=== PATIENT | female | born 1950 | race Caucasian/White ===

== ENCOUNTER → 2017-03-13 | Outpatient (REF) | payer MEDICARE ==
[~2017-03-13] MED LIST: ASPI32ECTA PO; ATOR1TAB18 PO; CENTTAB47 PO; DULE200A IN; DULO1CAP3 PO; ENAL5TAB PO; FURO40TA2 PO; METO50TA2 PO; NITR3TA SL; PROA1AER IN
[2017-03-13 18:03] LABS: PHOSPHORUS LEVEL 2.8 MG/DL (2.5-4.9)
== END ==
LOC: M LAB REF 16:25
PROVIDERS: ATTEND Nurse Practitioner Adult Health
DX: E21.3 Hyperparathyroidism, unspecified (principal)

== ENCOUNTER → 2017-07-24 | Outpatient (REF) | payer MEDICARE ==
[~2017-07-24] MED LIST changes: +ASPI325T24 PO; -ASPI32ECTA PO; -ATOR1TAB18 PO; +ATOR80TA59 PO; -METO50TA2 PO; +METO50TA7 PO; -PROA1AER IN; +PROAAER10 IN
[2017-07-30 10:44] LABS: DOPAMINE PLASMA <30 pg/mL (0-48); EPINEPHRINE PLASMA <15 pg/mL (0-62); NOREPINEPHRINE PLASMA 840 pg/mL (0-874)
== END ==
LOC: M LAB REF 11:14
PROVIDERS: ATTEND Nurse Practitioner Adult Health
DX: I10 Essential (primary) hypertension (principal); E21.3 Hyperparathyroidism, unspecified; E11.40 Type 2 diabetes mellitus with diabetic neuropathy, unspecified

== ENCOUNTER → 2018-01-28 | Outpatient (REF) | payer MEDICARE ==
[2018-01-28 17:58] LABS: FERRITIN 31 NG/ML (8-252); IRON (FE) 53 UG/DL (50-170); PERCENT SATURATION 15.1 % (13.2-45.0); TOTAL IRON BINDING CAPACITY 351 UG/DL (250-450)
[2018-01-28 19:31] LABS: BACTERIA, URINE LARGE AMOUNT; RBC, URINE 0-1 /hpf (0-3); SQUAMOUS EPITHELIAL CELL URINE SMALL AMOUNT /hpf (SMALL AMT); WBC, URINE 20-30 /hpf (0-3)
[2018-01-28 19:32] LABS: BLADDER EPITHELIAL CELLS, UR SMALL AMOUNT /hpf; HYALINE CAST, URINE NONE SEEN /lpf (0-1); MICROSCOPIC EXAM PERFORMED
== END ==
LOC: M LAB REF 16:59
DX: N18.3 Chronic kidney disease, stage 3 (moderate) (principal); D63.1 Anemia in chronic kidney disease; R31.29 Other microscopic hematuria; R80.9 Proteinuria, unspecified
CPT/HCPCS: 83550

== ENCOUNTER → 2018-04-13 | Outpatient (REF) | payer MEDICARE ==
[2018-04-13 18:30] LABS: PHOSPHORUS LEVEL 3.6 MG/DL (2.5-4.9)
[2018-04-13 18:40] LABS: PTH INTACT 78.9 PG/ML (18.5-88.0)
== END ==
LOC: M LAB REF 17:09
DX: E21.3 Hyperparathyroidism, unspecified (principal)
CPT/HCPCS: 84100

== ENCOUNTER → 2018-08-04 | Outpatient (REF) | payer MEDICARE ==
[2018-08-05 15:29] LABS: BACTERIA, URINE AUTO 2+ (NEGATIVE); RBC, URINE AUTO 1 /HPF (0-3); SQUAMOUS EPITHELIAL CELL UR AU 1 /HPF (0-6); WBC, URINE AUTO 19 /HPF (0-3)
[2018-08-05 15:49] LABS: TOTAL PROTEIN 7.1 GM/DL (6.4-8.2)
[2018-08-05 15:53] LABS: TOTAL PROTEIN,RANDOM URINE 155.1 MG/DL (0.0-12.0); URINE TOTAL PROTEIN 155.1 MG/DL (0-12)
[2018-08-06 14:14] LABS: ANTI DOUBLE STRAND-DNA AB 3 IU/mL (0-9); ANTINUCLEAR ANTIBODIES DIRECT Negative (Negative)
[2018-08-09 14:40] LABS: UPEP INTERPRETATION NO M-SPIKE NOTED; URINE VOLUME RANDOM ML
[2018-08-09 15:18] LABS: ALBUMIN 3.73 GM/DL (3.29-5.55); ALBUMIN % 52.6 % (55.8-66.1); ALPHA-1-GLOBULIN % 6.1 % (2.9-4.9); ALPHA-1-GLOBULINS 0.43 GM/DL (0.17-0.41); ALPHA-2-GLOBULINS 1.02 GM/DL (0.42-0.99); ALPHA-2-GLOBULINS % 14.4 % (7.1-11.8); BETA-1-GLOBULINS 0.51 GM/DL (0.28-0.60); BETA-1-GLOBULINS % 7.2 % (4.7-7.2); BETA-2-GLOBULINS 0.42 GM/DL (0.19-0.55)
[2018-08-09 15:19] LABS: BETA-2-GLOBULINS % 5.9 % (3.2-6.5); GAMMA GLOBULIN % 13.8 % (11.1-18.8); GAMMA GLOBULINS 0.98 GM/DL (0.65-1.58)
== END ==
LOC: M LAB REF 13:24
DX: N18.3 Chronic kidney disease, stage 3 (moderate) (principal); R80.9 Proteinuria, unspecified
CPT/HCPCS: 84165

== ENCOUNTER → 2018-08-10 | Outpatient (CLI) | payer MEDICARE | LOC: M RAD 13:46 | DX: N18.3 Chronic kidney disease, stage 3 (moderate) (principal); E11.22 Type 2 diabetes mellitus with diabetic chronic kidney disease; I12.9 Hypertensive chronic kidney disease with stage 1 through stage 4 chronic kidney disease, or unspecified chronic kidney disease; N28.1 Cyst of kidney, acquired | CPT/HCPCS: 76775 ==

== ENCOUNTER → 2018-10-26 | Outpatient (CLI) | payer MEDICARE | LOC: M RAD 13:07 | DX: Z12.2 Encounter for screening for malignant neoplasm of respiratory organs (principal); J44.9 Chronic obstructive pulmonary disease, unspecified; Z87.891 Personal history of nicotine dependence | CPT/HCPCS: G0297 ==

== ENCOUNTER → 2018-11-10 | Outpatient (CLI) | payer MEDICARE ==
[~2018-11-10] MED LIST changes: -ASPI325T24 PO; +ASPI325T25 PO; +ISOVUE-370 76% 100ML VIAL (Q9967) As Ordered ONE; +NITR0.3S SL; -NITR3TA SL
--- NOTE | 2018-11-10 17:40 | REP ---
CT abdomen without and with IV contrast: Without oral contrast. History: Cyst of the kidney. Comparison CT study May 15, 2015. CT contrast dose: 100 ml of intravenous Isovue 370 is administered. Multiphase postcontrast imaging was acquired. CT findings: There are numerous small bilateral renal cortical cysts. There is a hyperdense small cortical cyst at the lower pole of the right kidney. There is a slightly hyperdense cyst in the upper pole of the right kidney. This measures 2.6 cm in greatest diameter. This is slightly larger than it was in 2015, 1.7 cm. No new mass is seen. There is no evidence of contrast enhancement in any of these cysts. There are scattered vascular calcifications bilaterally. There is probably intrarenal nephrolithiasis bilaterally. No hydronephrosis is seen. There is stable low density enlargement of the left adrenal gland. The study is otherwise unremarkable. No pancreatic or gallbladder abnormality is seen. Spleen and liver are unremarkable. Impression: Stable multicystic kidney changes. Intrarenal nephrolithiasis suspected without hydronephrosis. Vascular calcification as before. Electronically Signed by Rogerio Bowie MD 11/10/2018 08:46 P
== END ==
LOC: M RAD 10:19
PROVIDERS: ATTEND Internal Medicine Nephrology
DX: N28.1 Cyst of kidney, acquired (principal)
CPT/HCPCS: 74170; Q9967

== ENCOUNTER → 2019-04-08 | Outpatient (REF) | payer MEDICARE ==
[~2019-04-08] MED LIST changes: +ASPI-255 PO; -ASPI325T25 PO; -ISOVUE-370 76% 100ML VIAL (Q9967) As Ordered ONE
== END ==
LOC: M LAB REF 13:18
PROVIDERS: ATTEND Internal Medicine Nephrology
DX: N18.3 Chronic kidney disease, stage 3 (moderate) (principal); R80.9 Proteinuria, unspecified

== ENCOUNTER → 2019-11-22 | Outpatient (REF) | payer MEDICARE ==
[~2019-11-22] MED LIST changes: -DULO1CAP3 PO; +DULO1CAP6 PO
[2019-11-22 13:41] LABS: BACTERIA, URINE AUTO 2+ (NEGATIVE); RBC, URINE AUTO 1 /HPF (0-3); SQUAMOUS EPITHELIAL CELL UR AU 1 /HPF (0-6); WBC, URINE AUTO 18 /HPF (0-3)
[2019-11-22 13:46] LABS: PERCENT SATURATION 20.3 % (13.2-45.0)
[2019-11-22 14:19] LABS: TOTAL PROTEIN,RANDOM URINE 344.2 MG/DL (0.0-12.0)
== END ==
LOC: M LAB REF 13:16
PROVIDERS: ATTEND Internal Medicine Nephrology
DX: R80.9 Proteinuria, unspecified (principal); N18.3 Chronic kidney disease, stage 3 (moderate); D63.1 Anemia in chronic kidney disease

== ENCOUNTER 2019-12-13 11:25 | Day surgery (SDC) | payer MEDICARE ==
[~2019-12-13] VITALS: Ht 162.6 cm; Wt 55.8 kg
[~2019-12-13 11:25] MED LIST changes: +AMLO5TAB6 PO; +ASPI81TA85 PO; -DULE200A IN; +DULE200A INH; +ENAL10TA2 PO; +LIDOCAINE 2% INJ 100 MG/5 ML SDV (FOR ANES.) As Ordered ONE; +MAGN400C2 PO; +METF500T13 PO; +MULTCAP PO; +NS 1,000 ML IV ONE; +PROAAER10 INH; +VITA1CHW7 PO; +propofoL 200 MG/20 ML VIAL As Ordered ONE
[2019-12-13] MEDS ORDERED: propofoL 200 MG/20 ML VIAL As Ordered ONE (13:03)
--- NOTE | 2019-12-13 13:38 | ROOR ---
Patient Name: Marie Johnson Procedure Date: 12/13/2019 1:18 PM Date of : 1950 Age: 69 Room: [facility] Gender: Female Note Status: Finalized Procedure: Colonoscopy to Descending Colon(POOR PREP) Indications: High risk colon cancer surveillance: Personal history of colonic polyps Providers: Saulo Mina MD Referring MD: Phuong Gordillo NP Requesting Provider: Medicines: Monitored Anesthesia Care Complications: No immediate complications. Procedure: Pre-Anesthesia Assessment: - The heart rate, respiratory rate, oxygen saturations, blood pressure, adequacy of pulmonary ventilation, and response to care were monitored throughout the procedure. The Colonoscope was introduced through the anus with the intention of advancing to the cecum. The scope was advanced to the descending colon before the procedure was aborted. Medications were given. The colonoscopy was performed without difficulty. The patient tolerated the procedure well. The quality of the bowel preparation was inadequate. Findings: The perianal and digital rectal examinations were normal. Non-bleeding internal hemorrhoids were found during retroflexion. The hemorrhoids were small and Grade I (internal hemorrhoids that do not prolapse). Multiple small and large-mouthed diverticula were found in the recto-sigmoid colon, sigmoid colon and descending colon. The exam was otherwise without abnormality. Impression: - Preparation of the colon was inadequate. - Non-bleeding internal hemorrhoids. - Diverticulosis in the recto-sigmoid colon, in the sigmoid colon and in the descending colon. - The examination was otherwise normal. - No specimens collected. - The exam was suboptimal due to patient preparation. - The procedure was aborted due to inadequate bowel prep. Recommendation: - Patient has a contact number available for emergencies. The signs and symptoms of potential delayed complications were discussed with the patient. Return to normal activities tomorrow. Written discharge instructions were provided to the patient. - Discharge patient to home. - Continue present medications. - Repeat colonoscopy in 1 year because the bowel preparation was suboptimal. - Return to referring physician. - The findings and recommendations were discussed with the patient's family. Saulo Mina MD Saulo Mina MD 12/13/2019 1:37:53 PM Electronically signed by Saulo Mina MD Number of Addenda: 0 Note Initiated On: 12/13/2019 1:18 PM Estimated Blood Loss: Estimated blood loss: none.
[2019-12-13 14:30] VITALS: BP 170/72
== END 2019-12-13 14:42 | disposition home or self-care (01) ==
LOC: M OPP 11:25
PROVIDERS: ATTEND Internal Medicine Gastroenterology
DX: Z86.010 Personal history of colon polyps (principal); K64.0 First degree hemorrhoids; K57.30 Diverticulosis of large intestine without perforation or abscess without bleeding; Z53.8 Procedure and treatment not carried out for other reasons

== ENCOUNTER → 2020-08-08 | Outpatient (CLI) | payer MEDICARE ==
[~2020-08-08] MED LIST changes: +AMLO1TAB24 PO; -AMLO5TAB6 PO; -ASPI81TA85 PO; +ASPI81TA86 PO; +D31000TA2 PO; +ENAL-36 PO; -ENAL10TA2 PO; +ENAL5TA PO; -ENAL5TAB PO; -LIDOCAINE 2% INJ 100 MG/5 ML SDV (FOR ANES.) As Ordered ONE; -NS 1,000 ML IV ONE; -propofoL 200 MG/20 ML VIAL As Ordered ONE
--- NOTE | 2020-08-21 14:51 | REP ---
CT CHEST WITHOUT CONTRAST: LOW-DOSE SCREENING EXAM HISTORY: Nicotine dependence. COMPARISON: CT study from 10/26/2018. CT FINDINGS: Emphysematous changes and hyperinflation are again noted as before. There is a new 6-mm noncalcified nodule in the right upper lobe displayed on Page 24 of 112 in Series 201 of todays examination. This merits follow-up. There is no change in the size or appearance of the previously noted left upper lobe nodule in the interval since the prior study. This measures 4 mm and is displayed on page 21. There are scattered granulomatous calcifications elsewhere in the left upper lobe and there is some left upper lobe linear fibrosis again seen unchanged. No other pulmonary nodule is seen. No mass lesion is observed. Vascular calcification is seen. IMPRESSION: New 6-mm noncalcified nodule right upper lobe. Lung-RADS Category 3 findings. Six month follow-up chest CT recommended. MTDD
== END ==
LOC: M RAD 12:35
PROVIDERS: ATTEND Nurse Practitioner Adult Health
DX: Z12.2 Encounter for screening for malignant neoplasm of respiratory organs (principal); F17.210 Nicotine dependence, cigarettes, uncomplicated; R91.1 Solitary pulmonary nodule

== ENCOUNTER → 2020-08-29 | Outpatient (CLI) | payer MEDICARE | LOC: M LABSMTC 12:08 | PROVIDERS: ATTEND Anesthesiology | DX: Z01.812 Encounter for preprocedural laboratory examination (principal); Z20.828 Contact with and (suspected) exposure to other viral communicable diseases | CPT/HCPCS: C9803; U0003 ==

== ENCOUNTER 2020-09-03 08:13 | Day surgery (SDC) | payer MEDICARE ==
[~2020-09-03] VITALS: Ht 162.6 cm; Wt 53.0 kg
[~2020-09-03 08:13] MED LIST changes: +LIDOCAINE 2% 100MG/5ML SDV (FOR ANES.) As Ordered ONE; +NS 1,000 ML IV ONE; +propofoL 200 MG/20 ML VIAL As Ordered ONE
--- NOTE | 2020-09-03 10:10 | ROOR ---
Patient Name: Marie Johnson Procedure Date: 09/03/2020 9:26 AM Date of : 1950 Age: 69 Room: [facility] Gender: Female Note Status: Finalized Procedure: Total Colonoscopy to Cecum + Cold Snare Polypectomy + Hemoclips Indications: High risk colon cancer surveillance: Personal history of colonic polyps Providers: Saulo Mina MD Referring MD: Phuong Gordillo NP Requesting Provider: Medicines: Monitored Anesthesia Care Complications: No immediate complications. Procedure: Pre-Anesthesia Assessment: - The heart rate, respiratory rate, oxygen saturations, blood pressure, adequacy of pulmonary ventilation, and response to care were monitored throughout the procedure. The Colonoscope was introduced through the anus and advanced to the cecum, identified by appendiceal orifice and ileocecal valve. The colonoscopy was performed without difficulty. The patient tolerated the procedure well. The quality of the bowel preparation was good. Findings: The perianal and digital rectal examinations were normal. Non-bleeding internal hemorrhoids were found during retroflexion. The hemorrhoids were small and Grade I (internal hemorrhoids that do not prolapse). Scattered small-mouthed diverticula were found in the recto-sigmoid colon, sigmoid colon and descending colon. Multiple sessile polyps were found in the entire colon. The polyps were large in size. These polyps were removed with a cold snare. Resection and retrieval were complete. To prevent bleeding after the polypectomy, two hemostatic clips were successfully placed. There was no bleeding at the end of the procedure. The exam was otherwise without abnormality on direct and retroflexion views. Impression: - Non-bleeding internal hemorrhoids. - Diverticulosis in the recto-sigmoid colon, in the sigmoid colon and in the descending colon. - Multiple large polyps in the entire colon, removed with a cold snare. Resected and retrieved. Clips were placed. - The examination was otherwise normal on direct and retroflexion views. - The exam was otherwise normal to the cecum. Recommendation: - Patient has a contact number available for emergencies. The signs and symptoms of potential delayed complications were discussed with the patient. Return to normal activities tomorrow. Written discharge instructions were provided to the patient. - High fiber diet. - Discharge patient to home. - Continue present medications. - Await pathology results. - Telephone GI clinic for pathology results in 1 week. - Repeat colonoscopy for surveillance based on pathology results. - Return to referring physician. - The findings and recommendations were discussed with the patient. Saulo Mina MD Saulo Mina MD 09/03/2020 10:09:53 AM Electronically signed by Saulo Mina MD Number of Addenda: 0 Note Initiated On: 09/03/2020 9:26 AM Estimated Blood Loss: Estimated blood loss: none.
[2020-09-03 10:30] VITALS: BP 158/68
== END 2020-09-03 11:00 | disposition home or self-care (01) ==
LOC: M OPP 08:13
PROVIDERS: ATTEND Internal Medicine Gastroenterology
DX: Z12.11 Encounter for screening for malignant neoplasm of colon (principal); Z86.010 Personal history of colon polyps; D12.6 Benign neoplasm of colon, unspecified; K64.0 First degree hemorrhoids; K57.30 Diverticulosis of large intestine without perforation or abscess without bleeding; I25.2 Old myocardial infarction; I10 Essential (primary) hypertension; E78.5 Hyperlipidemia, unspecified; E11.9 Type 2 diabetes mellitus without complications; R12 Heartburn; F32.9 Major depressive disorder, single episode, unspecified; J44.9 Chronic obstructive pulmonary disease, unspecified; Z87.891 Personal history of nicotine dependence; Z91.09 Other allergy status, other than to drugs and biological substances; Z95.5 Presence of coronary angioplasty implant and graft; Z79.82 Long term (current) use of aspirin; Z79.84 Long term (current) use of oral hypoglycemic drugs; Z79.899 Other long term (current) drug therapy

== ENCOUNTER → 2020-11-07 | Outpatient (CLI) | payer MEDICARE ==
[~2020-11-07] MED LIST changes: -LIDOCAINE 2% 100MG/5ML SDV (FOR ANES.) As Ordered ONE; -NS 1,000 ML IV ONE; -propofoL 200 MG/20 ML VIAL As Ordered ONE
--- NOTE | 2020-11-07 15:27 | REP ---
INDICATION: NONSPECIFIC ABNORMAL FINDINGS. COMPARISON: Low-dose lung screening chest CT dated 10/26/2018 and low-dose lung screening chest CT dated 08/08/2020. TECHNIQUE: Chest CT without IV contrast. FINDINGS: There is a nodule with irregular margins in the right upper lobe on image 25 measuring 7 mm today. This measured 6 mm on 08/08/2020 and was not present on 10/26/2018. There is a stable 4 mm lung nodule medially in the left upper lobe on image 23, unchanged from both prior studies. There is a stable small curvilinear density anteriorly in the left upper lobe on image 34, unchanged from both prior studies. I believe this density is calcified. There is a focal 9 mm ground-glass density posteriorly in the right lower lobe on image 62. This is unchanged from both prior studies. This is a category 2 lung lesion with the probability of malignancy less than 1%. No other lung nodules or masses are identified. There are no infiltrates or pleural effusions. There is no mediastinal or axillary lymph node enlargement. The study is insensitive for hilar lymph node enlargement in the absence of IV contrast. The thoracic aorta is unremarkable except for calcified atheroma. Cardiac size is normal. There are atheromatous calcifications in the coronary arteries. There is no pericardial effusion. Upper abdomen: There is a hypodense 2.4 cm left adrenal nodule with CT density of negative 3.9 Hounsfield units. This is compatible with a benign nodule such as a an adenoma or myelolipoma. The right adrenal is unremarkable. There are bilateral renal cortical cysts in bilateral renal calculi. IMPRESSION: There is a 7 mm right upper lobe nodule with irregular margins on image 25 that was not present on 10/26/2018 but has not significantly changed from 08/08/2020. There are several other stable nodules as described, all category 2 lung nodules with the probability of malignancy less than 1%. There is a right lower lobe stable ground-glass density also category 2 lesion was probability of malignancy less than 1%. There is a left adrenal nodule with benign characteristics. The right adrenal is unremarkable. <Electronically signed by Mj Casper > 11/07/20 [id number]
== END ==
LOC: M RAD 12:57
PROVIDERS: ATTEND Internal Medicine Pulmonary Disease
DX: R91.8 Other nonspecific abnormal finding of lung field (principal)

== ENCOUNTER → 2020-11-12 | Outpatient (REF) | payer MEDICARE ==
[2020-11-12 18:23] LABS: COMPLEMENT C3 119 MG/DL (90-180); COMPLEMENT C4 39 MG/DL (10-40); TOTAL PROTEIN 7.3 GM/DL (6.4-8.2)
[2020-11-13 10:43] LABS: ALBUMIN 4.01 GM/DL (3.29-5.55); ALBUMIN % 54.9 % (55.8-66.1); ALPHA-1-GLOBULIN % 5.3 % (2.9-4.9); ALPHA-1-GLOBULINS 0.39 GM/DL (0.17-0.41); ALPHA-2-GLOBULINS 0.96 GM/DL (0.42-0.99); ALPHA-2-GLOBULINS % 13.1 % (7.1-11.8); BETA-1-GLOBULINS 0.53 GM/DL (0.28-0.60); BETA-1-GLOBULINS % 7.2 % (4.7-7.2)
[2020-11-13 10:44] LABS: BETA-2-GLOBULINS 0.43 GM/DL (0.19-0.55); BETA-2-GLOBULINS % 5.9 % (3.2-6.5); GAMMA GLOBULIN % 13.6 % (11.1-18.8); GAMMA GLOBULINS 0.99 GM/DL (0.65-1.58)
[2020-11-15 15:09] LABS: ANCA-ATYPICAL <1:20 titer (Neg:<1:20); CYTOPLASMIC NEUTROP AB ANCA-C <1:20 titer (Neg:<1:20); PERINUCLEAR AB ANCA-P <1:20 titer (Neg:<1:20)
== END ==
LOC: M LAB REF 16:56
PROVIDERS: ATTEND Internal Medicine Nephrology
DX: R80.9 Proteinuria, unspecified (principal)

== ENCOUNTER → 2021-05-07 | Outpatient (CLI) | payer MEDICARE ==
--- NOTE | 2021-05-07 16:24 | REP ---
INDICATION: ABN FINDING OF LUNG COMPARISON: Multiple the latest 11/07/2020. TECHNIQUE: Standard helical technique without intravenous contrast FINDINGS: The mediastinum and pulmonary elizabeth are unchanged. There is no mass or adenopathy. There are no pleural or pericardial effusions. The imaged upper abdomen again shows bilateral nephrolithiasis. There is no significant change in appearance of the imaged osseous structures. Evaluation of the lung pace shows lung field hyperexpansion with emphysematous changes. The small area of asymmetry seen in the right upper lobe has gotten smaller and is consistent with vascular markings. There is a small 8 mm size somewhat irregular nodule in the extreme antral basal segment the right lower lobe. Previously, this area. B fibrotic and/or subsegmental atelectatic change. There are bibasilar curvilinear densities which appear stable. IMPRESSION: 1. Small asymmetric nodule in the right lower lobe as described above likely reflecting a small focus of subsegmental atelectasis or chronic fibrosis, however, since it does represent somewhat of a change compared to the latest prior examination I will categorize it is a 4A lesion and recommended 3 month follow-up. 2. Other lung field findings, as described above, which appears stable. <Electronically signed by Andreas Costello > 05/07/21 [id number]
== END ==
LOC: M RAD 14:57
PROVIDERS: ATTEND Internal Medicine Pulmonary Disease
DX: R91.8 Other nonspecific abnormal finding of lung field (principal)

== ENCOUNTER → 2021-08-12 | Outpatient (CLI) | payer MEDICARE ==
--- NOTE | 2021-08-12 16:41 | REP ---
INDICATION: ABNORMAL FINDING OF LUNG FIELD COMPARISON: Multiple the latest 05/07/2021 TECHNIQUE: Standard helical technique without the administration of intravenous contrast. FINDINGS: The mediastinum and pulmonary elizabeth are stable. There are no pleural or pericardial effusions. There is no change in the imaged upper abdomen or imaged osseous structures. Evaluation of the lung pace shows the small asymmetric nodule seen previously in the tamy basal segment of the right lower lobe to have gotten smaller and less dense. There is respiratory motion artifact in the lung bases obscuring the detail, however, no definite new abnormal nodules, masses, or opacities have developed. Stable emphysematous changes are again noted status quo. IMPRESSION: Improvement as described above. Follow-up as per the revised Fleischner society criteria. <Electronically signed by Andreas Costello > 08/12/21 [id number]
== END ==
LOC: M PLAIMG 13:30
PROVIDERS: ATTEND Internal Medicine Pulmonary Disease
DX: R91.8 Other nonspecific abnormal finding of lung field (principal)

== ENCOUNTER → 2021-08-16 | Outpatient (REF) | payer MEDICARE ==
[2021-08-16 18:34] LABS: TOTAL PROTEIN,RANDOM URINE 116.8 MG/DL (0.0-12.0)
== END ==
LOC: M LAB REF 17:13
PROVIDERS: ATTEND Internal Medicine Nephrology
DX: N18.31 Chronic kidney disease, stage 3a (principal); R80.9 Proteinuria, unspecified; E83.42 Hypomagnesemia

== ENCOUNTER → 2022-01-01 | Outpatient (CLI) | payer MEDICARE, OTHER ==
[~2022-01-01] MED LIST changes: +ALBU8.5H INH; +ASPI-161 PO; +ASPI325T47 PO; +BUDE10.2 INH; +CENT1TAB PO; +DULE200A IN; +METO1TAB87 PO; +OMEP40CA5 PO; +SPIR12.9 PO; +VARE1TAB2 PO
== END ==
LOC: M LABSMTC 09:50
PROVIDERS: ATTEND Anesthesiology
DX: Z01.812 Encounter for preprocedural laboratory examination (principal); Z20.822 Contact with and (suspected) exposure to COVID-19

== ENCOUNTER → 2022-01-01 | Outpatient (CLI) | payer OTHER | LOC: M RAD 11:59 | PROVIDERS: ATTEND Nurse Practitioner Adult Health | DX: Z01.812 Encounter for preprocedural laboratory examination (principal); I65.29 Occlusion and stenosis of unspecified carotid artery; Z20.822 Contact with and (suspected) exposure to COVID-19 | CPT/HCPCS: 93880; U0003 ==

== ENCOUNTER 2022-01-06 10:57 | Day surgery (SDC) | payer OTHER ==
[~2022-01-06] VITALS: Ht 162.6 cm; Wt 61.7 kg
[~2022-01-06 10:57] MED LIST changes: +NS 1,000 ML IV ONE
[2022-01-06] MEDS ORDERED: MIDAZOLAM INJ 2MG/2ML VIAL (J2250 PER 1MG) As Ordered ONE (12:57)
[2022-01-06] MEDS ORDERED: fentaNYL 100 MCG/2 ML INJECTION As Ordered ONE (12:57)
[2022-01-06] MEDS ORDERED: propofoL 200 MG/20 ML VIAL As Ordered ONE (12:58)
[2022-01-06 13:52] VITALS: BP 136/62
== END 2022-01-06 14:02 | disposition home or self-care (01) ==
LOC: M OPP 10:57
PROVIDERS: ATTEND Internal Medicine Gastroenterology
DX: Z12.11 Encounter for screening for malignant neoplasm of colon (principal); Z86.010 Personal history of colon polyps; Z83.71 Family history of colonic polyps; D12.2 Benign neoplasm of ascending colon; K57.30 Diverticulosis of large intestine without perforation or abscess without bleeding; K64.0 First degree hemorrhoids; Z79.82 Long term (current) use of aspirin; Z79.84 Long term (current) use of oral hypoglycemic drugs; Z79.899 Other long term (current) drug therapy; Z80.52 Family history of malignant neoplasm of bladder; Z87.891 Personal history of nicotine dependence
CPT/HCPCS: 45385; 88305; J2250; J3010

== ENCOUNTER → 2022-02-07 | Outpatient (CLI) | payer OTHER ==
[~2022-02-07] MED LIST changes: -D31000TA2 PO; -NS 1,000 ML IV ONE; +VITA100093 PO
== END ==
LOC: M WUC 13:23
PROVIDERS: ATTEND Physician Assistant
DX: R06.02 Shortness of breath (principal); R91.8 Other nonspecific abnormal finding of lung field

== ENCOUNTER → 2022-02-18 | Outpatient (CLI) | payer OTHER | LOC: M PLAIMG 12:34 | PROVIDERS: ATTEND Internal Medicine Pulmonary Disease | DX: R91.8 Other nonspecific abnormal finding of lung field (principal) ==

== ENCOUNTER → 2022-02-20 | Outpatient (REF) | payer OTHER | LOC: M LAB REF 14:35 | PROVIDERS: ATTEND Nurse Practitioner Adult Health | DX: R06.02 Shortness of breath (principal) ==

== ENCOUNTER → 2022-04-30 | Outpatient (CLI) | payer OTHER ==
[~2022-04-30] MED LIST changes: +ISOVUE-370 76% 100ML VIAL As Ordered ONE
== END ==
LOC: M RAD 11:18
PROVIDERS: ATTEND Nurse Practitioner Family
DX: N28.1 Cyst of kidney, acquired (principal)
CPT/HCPCS: 74170; Q9967

== ENCOUNTER → 2022-08-05 | Outpatient (CLI) | payer OTHER ==
[~2022-08-05] MED LIST changes: -DULE200A IN; -DULE200A INH; -ISOVUE-370 76% 100ML VIAL As Ordered ONE; +MOME13HF7 IN; +MOME13HF7 INH
[2022-08-05 17:45] LABS: ALBUMIN 3.6 GM/DL (3.2-5.2); BILIRUBIN,TOTAL 0.4 MG/DL (0.2-1.0); CALCIUM LEVEL 9.6 MG/DL (8.8-10.2); CREATININE FOR GFR 1.42 MG/DL (0.55-1.30); POTASSIUM SERUM 4.7 MEQ/L (3.5-5.1); TOTAL PROTEIN 7.2 GM/DL (6.4-8.2)
[2022-08-05 17:59] LABS: HEMATOCRIT 38.8 % (36.0-47.0); HEMOGLOBIN 12.5 g/dl (12.0-15.5); MEAN CORPUSCULAR HEMOGLOBIN 31.5 pg (27.0-33.0); MEAN CORPUSCULAR HGB CONC 32.2 g/dl (32.0-36.5); MEAN CORPUSCULAR VOLUME 97.7 fl (80.0-96.0); PLATELET COUNT, AUTOMATED 237 10^3/uL (150-450); RED BLOOD COUNT 3.97 10^6/uL (4.00-5.40); WHITE BLOOD COUNT 9.6 10^3/uL (4.0-10.0)
== END ==
LOC: M WUC 11:54
PROVIDERS: ATTEND Nurse Practitioner Family
DX: I25.10 Atherosclerotic heart disease of native coronary artery without angina pectoris (principal)

== ENCOUNTER → 2023-01-07 | Outpatient (CLI) | payer OTHER ==
[~2023-01-07] MED LIST changes: +ENAL1TAB48 PO; -ENAL5TA PO; +PROHANCE 279.3MG/ML 5ML VIAL As Ordered ONE
== END ==
LOC: M RAD 13:55
PROVIDERS: ATTEND Nurse Practitioner Family
DX: D49.511 Neoplasm of unspecified behavior of right kidney (principal); N28.1 Cyst of kidney, acquired; D35.02 Benign neoplasm of left adrenal gland
CPT/HCPCS: 74183; A9576

== ENCOUNTER → 2023-02-18 | Outpatient (CLI) | payer OTHER ==
[~2023-02-18] MED LIST changes: -ENAL-36 PO; +ENAL1TAB50 PO; -PROHANCE 279.3MG/ML 5ML VIAL As Ordered ONE
== END ==
LOC: M WHC 12:00
PROVIDERS: ATTEND Nurse Practitioner Adult Health
DX: Z12.31 Encounter for screening mammogram for malignant neoplasm of breast (principal)

== ENCOUNTER → 2023-03-17 | Outpatient (CLI) | payer OTHER | LOC: M RAD 12:34 | PROVIDERS: ATTEND Internal Medicine Pulmonary Disease | DX: Z12.2 Encounter for screening for malignant neoplasm of respiratory organs (principal); F17.200 Nicotine dependence, unspecified, uncomplicated ==

== ENCOUNTER → 2023-06-04 | Outpatient (CLI) | payer OTHER ==
[2023-06-04 17:16] LABS: BASO # 0.1 10^3/uL (0.0-0.2); BASO % 0.6 % (0.0-1.0); EOS # 0.2 10^3/uL (0.0-0.5); EOS % 1.9 % (0.0-3.0); HEMATOCRIT 35.6 % (36.0-47.0); HEMOGLOBIN 12.2 g/dl (12.0-15.5); LYMPH # 1.5 10^3/uL (1.5-5.0); LYMPH % 18.6 % (24.0-44.0); MEAN CORPUSCULAR HEMOGLOBIN 32.7 pg (27.0-33.0); MEAN CORPUSCULAR HGB CONC 34.3 g/dl (32.0-36.5); MEAN CORPUSCULAR VOLUME 95.4 fl (80.0-96.0); MONO # 0.6 10^3/uL (0.0-0.8); MONO % 7.6 % (2.0-8.0); NEUTROPHILS # 5.7 10^3/uL (1.5-8.5); NEUTROPHILS % 70.9 % (36.0-66.0); PLATELET COUNT, AUTOMATED 237 10^3/uL (150-450); RED BLOOD COUNT 3.73 10^6/uL (4.00-5.40); WHITE BLOOD COUNT 8.1 10^3/uL (4.0-10.0)
== END ==
LOC: M WUC 11:54
PROVIDERS: ATTEND Internal Medicine Cardiovascular Disease
DX: I48.0 Paroxysmal atrial fibrillation (principal)

== ENCOUNTER → 2023-09-08 | Outpatient (CLI) | payer OTHER | LOC: M WUC 11:51 | PROVIDERS: ATTEND Internal Medicine | DX: J98.11 Atelectasis (principal); R05.9 Cough, unspecified; R06.00 Dyspnea, unspecified ==

== ENCOUNTER 2023-10-02 12:51 | Inpatient (IN) | payer OTHER ==
[~2023-10-02] VITALS: Ht 162.6 cm; Wt 54.4 kg
[2023-10-02] MEDS: MULTIVITAMINS/MINERALS THERAP 1 TAB PO SCH (09:00)
[2023-10-02] MEDS: VITAMIN D 1,000 INTERNATIONAL UNITS TABLET PO SCH (09:00)
[2023-10-02] MEDS: IPRATROPIUM 0.5MG/ALBUTEROL 2.5MG INH SOL UD 3ML (DUONEB) NEB PRN ×2 (13:26→13:27)
[2023-10-02 13:33] LABS: HEMATOCRIT 35.1 % (36.0-47.0); HEMOGLOBIN 11.6 g/dl (12.0-15.5); MEAN CORPUSCULAR HEMOGLOBIN 29.2 pg (27.0-33.0); MEAN CORPUSCULAR VOLUME 88.4 fl (80.0-96.0); PLATELET COUNT, AUTOMATED 525 10^3/uL (150-450); RED BLOOD COUNT 3.97 10^6/uL (4.00-5.40)
[2023-10-02 13:45] LABS: WHITE BLOOD COUNT 34.2 10^3/uL (4.0-10.0)
[2023-10-02 13:48] LABS: ABG BASE EXCESS 1.5 (-2.0-2.0); ABG HCO3 25.6 MMOL/L (22.0-26.0); ABG O2 SATURATION 90.5 % (95.0-99.0); ABG PARTIAL PRESSURE CO2 38.6 mmHg (35.0-45.0); ABG STANDARD HCO3 25.7 MMOL/L. (22.0-26.0); ABG TOTAL CO2 26.8 MMOL/L (23.0-31.0)
[2023-10-02 13:55] LABS: CK-MB VALUE MASS 9.6 NG/ML (<3.6)
[2023-10-02 14:00] LABS: FREE T4 1.48 NG/DL (0.89-1.76); THYROID STIMULATING HORMONE 0.487 uIU/ML (0.55-4.78)
[2023-10-02] MEDS ORDERED: cefTRIAXone SOD 2 GM in D5W MINI-BAG PLUS 50 ML IV ONE (14:00)
[2023-10-02 14:14] LABS: LYMPHOCYTES 3 % (16-44); METAMYELOCYTES 2 % (0-0); MONOCYTES 3 % (0-5); NEUTROPHILS 91 % (28-66); PLATELET ESTIMATE INCREASED (NORMAL)
[2023-10-02 14:22] LABS: ALBUMIN 3.3 G/DL (3.2-5.2); BILIRUBIN,DIRECT 0.2 MG/DL (<0.4); BILIRUBIN,TOTAL 0.6 MG/DL (0.3-1.2); CALCIUM LEVEL 9.4 MG/DL (8.3-10.6); CREATININE FOR GFR 1.72 MG/DL (0.55-1.30); GLOMERULAR FILTRATION RATE 31.2 (>39); MB/CK RELATIVE INDEX 16.55 (< OR =4); TOTAL PROTEIN 6.9 G/DL (5.7-8.2)
[2023-10-02] MEDS ORDERED: HumuLIN R (REGULAR) INSULIN (NovoLIN R) **100U/ML** PER UNIT IV ONE ×2 (15:00)
[2023-10-02] MEDS ORDERED: MED REC IN PROGRESS XX SCH (15:05)
[2023-10-02] MEDS ORDERED: NS 1,000 ML IV SCH (15:15)
[2023-10-02] MEDS ORDERED: BREO1INH3 PO (15:18)
[2023-10-02] MEDS ORDERED: MOM 30ML SUSPENSION UDC PO PRN (15:25)
[2023-10-02] MEDS ORDERED: ACETAMINOPHEN TAB 650MG DOSE (2X325MG) PO PRN (15:25)
[2023-10-02] MEDS ORDERED: DIGO0.123 PO (15:32)
[2023-10-02] MEDS ORDERED: METO50TA7 PO (15:32)
[2023-10-02] MEDS ORDERED: LR 1,500 ML IV ONE (15:40)
[2023-10-02] MEDS ORDERED: CLOP75TA2 PO (15:41)
[2023-10-02] MEDS ORDERED: PRED10TA2 PO (15:41)
[2023-10-02] MEDS ORDERED: FLUC150T9 PO (15:41)
[2023-10-02] MEDS ORDERED: ELIQ2.5T PO (15:43)
[2023-10-02] MEDS ORDERED: CHLO125TA PO (15:45)
[2023-10-02] MEDS ORDERED: FAMO40TA3 PO (15:45)
[2023-10-02] MEDS ORDERED: ISOS1TAB35 PO (15:45)
[2023-10-02] MEDS ORDERED: DULO1CAP5 PO (15:53)
[2023-10-02] MEDS ORDERED: ALBU8.5H INH (15:53)
[2023-10-02 16:05] LABS: INR 1.04; PROTHROMBIN TIME 13.3 SECONDS (12.5-14.5)
[2023-10-02 16:06] LABS: PARTIAL THROMBOPLASTIN TIME 23.8 SECONDS (24.8-34.2)
[2023-10-02] MEDS ORDERED: HOME MED LIST COMPLETE! XX SCH (16:15)
[2023-10-02] MEDS ORDERED: HumuLIN R (REGULAR) INSULIN (NovoLIN R) **100U/ML** PER UNIT IV STA ×2 (16:27→16:49)
[2023-10-02] MEDS ORDERED: GLUCOSE 4GM CHEW TABLET PO PRN (16:30)
[2023-10-02] MEDS ORDERED: GLUCAGON INJ 1MG VIAL SC PRN (16:30)
[2023-10-02] MEDS ORDERED: NITROGLYCERIN 0.3MG SUBL TAB SL PRN (16:45)
[2023-10-02] MEDS: IPRATROPIUM 0.5MG/ALBUTEROL 2.5MG INH SOL UD 3ML (DUONEB) NEB SCH ×3 (17:02→23:47)
[2023-10-02] MEDS ORDERED: INSULIN LISPRO (NovoLOG) PER UNIT SC SCH (18:00)
[2023-10-02 18:31] LABS: C REACTIVE PROTEIN QUANTITATIV 4.7 MG/DL (<1.0)
[2023-10-02 18:37] LABS: FERRITIN 12.7 NG/ML (7.3-270.7)
[2023-10-02 18:41] LABS: PROCALCITONIN 0.21 ng/ml
[2023-10-02 18:51] LABS: HEMOGLOBIN A1c 11.1 % (4.0-6.0)
[2023-10-02 18:58] LABS: INR 1.06; PROTHROMBIN TIME 13.5 SECONDS (12.5-14.5)
[2023-10-02 18:59] LABS: PARTIAL THROMBOPLASTIN TIME 21.7 SECONDS (24.8-34.2)
[2023-10-02 19:02] LABS: D-DIMER QUANT 0.27 ug/mL (<0.5)
[2023-10-02] MEDS: CEFEPIME HCL 2 GM in D5W 50 ML IV SCH (19:12)
[2023-10-02] MEDS: ADVAIR HFA 230/21MCG INHALER INH SCH (19:19)
[2023-10-02] MEDS ORDERED: VANCOMYCIN HCL 1,000 MG, VIAL MATE ADAPTER 1 EACH in NS 250 ML IV SCH (20:00)
[2023-10-02] MEDS: LR 1,000 ML IV SCH (20:19)
[2023-10-02] MEDS ORDERED: PILL CUTTER 1 EACH XX PRN (20:50)
[2023-10-02 21:30] VITALS: BP 129/59; TEMP 97.3; O2SAT 95
[2023-10-02] MEDS: ATORVASTATIN 20 MG TAB PO SCH (22:00)
[2023-10-02] MEDS: amLODIPine 5 MG TAB PO SCH (22:00)
[2023-10-02] MEDS: METOPROLOL TART 50 MG TAB PO SCH (22:01)
[2023-10-02] MEDS: DIGOXIN 0.125 MG TAB PO SCH (22:02)
[2023-10-02] MEDS: APIXABAN 2.5 MG TAB (ELIQUIS) PO SCH (22:02)
[2023-10-02] MEDS: CLOPIDOGREL 75 MG TAB PO SCH (22:02)
[2023-10-02] MEDS: DULoxetine 30MG CAPSULE (CYMBALTA) PO SCH (22:02)
[2023-10-02] MEDS: FAMOTIDINE 20 MG TAB PO SCH (22:03)
[2023-10-02] MEDS: ISOSORBIDE MON. (IMDUR) 30MG XR TAB PO SCH (22:04)
[2023-10-02] MEDS: DOCUSATE SODIUM 100MG CAPSULE PO SCH (22:05)
[2023-10-02 23:29] LABS: CALCIUM LEVEL 9.3 MG/DL (8.3-10.6); CREATININE FOR GFR 1.56 MG/DL (0.55-1.30); GLOMERULAR FILTRATION RATE 34.9 (>39)
[2023-10-03] VITALS (10 sets, daily range): BP systolic 101–127; BP diastolic 51–59; TEMP 97–98.1; O2SAT 90–97
[2023-10-03] MEDS: INSULIN LISPRO (NovoLOG) PER UNIT SC SCH ×6 (02:12→20:59)
[2023-10-03] MEDS: IPRATROPIUM 0.5MG/ALBUTEROL 2.5MG INH SOL UD 3ML (DUONEB) NEB SCH ×6 (03:56→23:59)
[2023-10-03 04:07] LABS: BASO # 0.1 10^3/uL (0.0-0.2); BASO % 0.2 % (0.0-1.0); LYMPH # 0.9 10^3/uL (1.5-5.0); LYMPH % 2.8 % (24.0-44.0); MEAN CORPUSCULAR HEMOGLOBIN 28.9 pg (27.0-33.0); MEAN CORPUSCULAR HGB CONC 32.8 g/dl (32.0-36.5); MEAN CORPUSCULAR VOLUME 88.1 fl (80.0-96.0); MONO # 0.9 10^3/uL (0.0-0.8); MONO % 2.6 % (2.0-8.0); NEUTROPHILS # 31.5 10^3/uL (1.5-8.5); NEUTROPHILS % 93.4 % (36.0-66.0); RED BLOOD COUNT 3.29 10^6/uL (4.00-5.40)
[2023-10-03 04:13] LABS: WHITE BLOOD COUNT 33.7 10^3/uL (4.0-10.0)
[2023-10-03 04:14] LABS: HEMOGLOBIN 9.5 g/dl (12.0-15.5); PLATELET COUNT, AUTOMATED 363 10^3/uL (150-450)
[2023-10-03 04:29] LABS: CALCIUM LEVEL 9.3 MG/DL (8.3-10.6); CREATININE FOR GFR 1.47 MG/DL (0.55-1.30); GLOMERULAR FILTRATION RATE 37.4 (>39); POTASSIUM SERUM 3.8 MMOL/L (3.5-5.1)
[2023-10-03] MEDS: LR 1,000 ML IV SCH ×2 (05:42→17:50)
[2023-10-03] MEDS: CEFEPIME HCL 2 GM in D5W 50 ML IV SCH ×2 (05:42→17:49)
[2023-10-03] MEDS ORDERED: VANCOMYCIN HCL 750 MG, VIAL MATE ADAPTER 1 EACH in D5W 250 ML IV SCH (08:00)
[2023-10-03] MEDS: TIOTROPIUM INHALER/CAPSULE (SPIRIVA) INH SCH (08:17)
[2023-10-03] MEDS: ADVAIR HFA 230/21MCG INHALER INH SCH ×2 (08:17→19:31)
[2023-10-03 08:54] LABS: VANCOMYCIN RANDOM 13.7 UG/ML
[2023-10-03] MEDS ORDERED: LEVEMIR (INSULIN DETEMIR) 1 UNITS/0.01ML SC SCH (09:00)
[2023-10-03] MEDS: DOCUSATE SODIUM 100MG CAPSULE PO SCH ×2 (09:00→21:00)
[2023-10-03] MEDS: APIXABAN 2.5 MG TAB (ELIQUIS) PO SCH ×2 (09:01→21:02)
[2023-10-03] MEDS: MAGNESIUM OXIDE 400MG TAB (MAG-OX) PO SCH (09:01)
[2023-10-03] MEDS: MULTIVITAMINS/MINERALS THERAP 1 TAB PO SCH (09:01)
[2023-10-03] MEDS: VITAMIN D 1,000 INTERNATIONAL UNITS TABLET PO SCH (09:01)
[2023-10-03] MEDS: METOPROLOL TART 50 MG TAB PO SCH ×2 (09:02→21:01)
[2023-10-03] MEDS ORDERED: LANTINJ4 SC (10:33)
[2023-10-03] MEDS: ALBUTEROL 90 MCG/ACT 8GM HFA INHALER INH PRN ×3 (15:45→23:58)
[2023-10-03] MEDS: ISOSORBIDE MON. (IMDUR) 30MG XR TAB PO SCH (21:00)
[2023-10-03] MEDS: ATORVASTATIN 20 MG TAB PO SCH (21:00)
[2023-10-03] MEDS: CLOPIDOGREL 75 MG TAB PO SCH (21:01)
[2023-10-03] MEDS: DULoxetine 30MG CAPSULE (CYMBALTA) PO SCH (21:01)
[2023-10-03] MEDS: amLODIPine 5 MG TAB PO SCH (21:01)
[2023-10-03] MEDS: DIGOXIN 0.125 MG TAB PO SCH (21:02)
[2023-10-03] MEDS: FAMOTIDINE 20 MG TAB PO SCH (21:02)
[2023-10-04] VITALS: BP 100/49; TEMP 97.7; O2SAT 99
[2023-10-04] MEDS: LR 1,000 ML IV SCH (02:48)
[2023-10-04] MEDS: ALBUTEROL 90 MCG/ACT 8GM HFA INHALER INH PRN ×2 (02:56→07:41)
[2023-10-04] MEDS: IPRATROPIUM 0.5MG/ALBUTEROL 2.5MG INH SOL UD 3ML (DUONEB) NEB SCH (03:15)
[2023-10-04] MEDS: CEFEPIME HCL 2 GM in D5W 50 ML IV SCH (05:29)
[2023-10-04 06:00] VITALS: BP 95/51; TEMP 98.1; O2SAT 100
[2023-10-04 07:20] LABS: BASO % 0.1 % (0.0-1.0); HEMATOCRIT 23.4 % (36.0-47.0); LYMPH # 1.2 10^3/uL (1.5-5.0); LYMPH % 5.8 % (24.0-44.0); MEAN CORPUSCULAR HEMOGLOBIN 29.6 pg (27.0-33.0); MEAN CORPUSCULAR HGB CONC 32.1 g/dl (32.0-36.5); MEAN CORPUSCULAR VOLUME 92.5 fl (80.0-96.0); MONO # 0.9 10^3/uL (0.0-0.8); MONO % 4.4 % (2.0-8.0); NEUTROPHILS # 18.5 10^3/uL (1.5-8.5); NEUTROPHILS % 88.6 % (36.0-66.0); PLATELET COUNT, AUTOMATED 245 10^3/uL (150-450); RED BLOOD COUNT 2.53 10^6/uL (4.00-5.40); WHITE BLOOD COUNT 20.9 10^3/uL (4.0-10.0)
[2023-10-04 07:22] LABS: HEMOGLOBIN 7.5 g/dl (12.0-15.5)
[2023-10-04] MEDS: TIOTROPIUM INHALER/CAPSULE (SPIRIVA) INH SCH (07:41)
[2023-10-04] MEDS: ADVAIR HFA 230/21MCG INHALER INH SCH ×2 (07:41→20:43)
[2023-10-04 07:50] LABS: PROCALCITONIN 0.32 ng/ml
[2023-10-04 07:51] LABS: BILIRUBIN,DIRECT 0.1 MG/DL (<0.4); BILIRUBIN,TOTAL 0.3 MG/DL (0.3-1.2); CALCIUM LEVEL 8.5 MG/DL (8.3-10.6); CREATININE FOR GFR 1.41 MG/DL (0.55-1.30); GLOMERULAR FILTRATION RATE 39.3 (>39); POTASSIUM SERUM 3.8 MMOL/L (3.5-5.1); TOTAL PROTEIN 4.7 G/DL (5.7-8.2)
[2023-10-04] MEDS: COMBIVENT RESPIMAT 100-20MCG INHALER 4GM INH SCH ×4 (08:00→20:40)
[2023-10-04 08:06] VITALS: BP 98/54; TEMP 98; O2SAT 96
[2023-10-04] MEDS: MULTIVITAMINS/MINERALS THERAP 1 TAB PO SCH (08:55)
[2023-10-04] MEDS: VITAMIN D 1,000 INTERNATIONAL UNITS TABLET PO SCH (08:55)
[2023-10-04] MEDS: MAGNESIUM OXIDE 400MG TAB (MAG-OX) PO SCH (08:55)
[2023-10-04] MEDS: METOPROLOL TART 50 MG TAB PO SCH ×2 (08:56→21:00)
[2023-10-04] MEDS: APIXABAN 2.5 MG TAB (ELIQUIS) PO SCH ×2 (08:56→21:55)
[2023-10-04] MEDS: DOCUSATE SODIUM 100MG CAPSULE PO SCH ×2 (08:56→22:01)
[2023-10-04] MEDS: LEVEMIR (INSULIN DETEMIR) 1 UNITS/0.01ML SC SCH (08:57)
[2023-10-04] MEDS: INSULIN LISPRO (NovoLOG) PER UNIT SC SCH ×4 (08:57→21:00)
[2023-10-04 12:06] VITALS: BP 93/55; TEMP 97; O2SAT 91
[2023-10-04 12:20] LABS: PERCENT SATURATION 7.3 % (13.2-45.0)
[2023-10-04 12:23] LABS: FOLATE 22.6 NG/ML (>5.4)
[2023-10-04] MEDS: CHLORTHALIDONE 12.5MG PER 1/2 TABLET PO SCH (12:52)
[2023-10-04] MEDS ORDERED: LevoFLOXacin 750 MG TABLET PO SCH (18:00)
[2023-10-04] MEDS: amLODIPine 5 MG TAB PO SCH (21:00)
[2023-10-04] MEDS: ENALAPRIL MALEATE 10 MG TAB PO SCH (21:00)
[2023-10-04] MEDS: ISOSORBIDE MON. (IMDUR) 30MG XR TAB PO SCH (21:00)
[2023-10-04] MEDS: ATORVASTATIN 20 MG TAB PO SCH (22:00)
[2023-10-04] MEDS: CLOPIDOGREL 75 MG TAB PO SCH (22:01)
[2023-10-04] MEDS: DIGOXIN 0.125 MG TAB PO SCH (22:01)
[2023-10-04] MEDS: DULoxetine 30MG CAPSULE (CYMBALTA) PO SCH (22:01)
[2023-10-04] MEDS: FAMOTIDINE 20 MG TAB PO SCH (22:01)
[2023-10-05] VITALS: BP 97/52; TEMP 98.8; O2SAT 96
[2023-10-05] MEDS: COMBIVENT RESPIMAT 100-20MCG INHALER 4GM INH SCH ×7 (00:26→23:53)
[2023-10-05 04:00] VITALS: BP_SYST 107; BP_SYST 97; BP_DIAS 52; BP_DIAS 53; TEMP 98.8; TEMP 98.9; O2SAT 95; O2SAT 96
[2023-10-05 05:41] LABS: BASO % 0.1 % (0.0-1.0); HEMATOCRIT 24.6 % (36.0-47.0); HEMOGLOBIN 7.9 g/dl (12.0-15.5); LYMPH # 1.2 10^3/uL (1.5-5.0); LYMPH % 7.5 % (24.0-44.0); MEAN CORPUSCULAR HEMOGLOBIN 29.5 pg (27.0-33.0); MEAN CORPUSCULAR HGB CONC 32.1 g/dl (32.0-36.5); MEAN CORPUSCULAR VOLUME 91.8 fl (80.0-96.0); MONO # 0.8 10^3/uL (0.0-0.8); NEUTROPHILS # 13.2 10^3/uL (1.5-8.5); NEUTROPHILS % 85.6 % (36.0-66.0); PLATELET COUNT, AUTOMATED 221 10^3/uL (150-450); RED BLOOD COUNT 2.68 10^6/uL (4.00-5.40); WHITE BLOOD COUNT 15.4 10^3/uL (4.0-10.0)
[2023-10-05 06:03] LABS: CALCIUM LEVEL 8.6 MG/DL (8.3-10.6); CREATININE FOR GFR 1.34 MG/DL (0.55-1.30); GLOMERULAR FILTRATION RATE 41.6 (>39)
[2023-10-05 08:05] VITALS: BP 98/54; TEMP 97.8; O2SAT 96
[2023-10-05] MEDS: CHLORTHALIDONE 12.5MG PER 1/2 TABLET PO SCH (09:00)
[2023-10-05] MEDS ORDERED: FERRIC CARBOXYMALTOSE INJ 750 MG, VIAL MATE ADAPTER 1 EACH in NS 250 ML IV ONE (09:00)
[2023-10-05] MEDS: DOCUSATE SODIUM 100MG CAPSULE PO SCH ×3 (09:00→22:03)
[2023-10-05] MEDS: METOPROLOL TART 50 MG TAB PO SCH ×2 (09:00→21:00)
[2023-10-05] MEDS: TIOTROPIUM INHALER/CAPSULE (SPIRIVA) INH SCH (09:32)
[2023-10-05] MEDS: ADVAIR HFA 230/21MCG INHALER INH SCH ×2 (09:32→21:02)
[2023-10-05] MEDS: APIXABAN 2.5 MG TAB (ELIQUIS) PO SCH ×2 (10:00→22:03)
[2023-10-05] MEDS: VITAMIN D 1,000 INTERNATIONAL UNITS TABLET PO SCH (10:01)
[2023-10-05] MEDS: MULTIVITAMINS/MINERALS THERAP 1 TAB PO SCH (10:01)
[2023-10-05] MEDS: MAGNESIUM OXIDE 400MG TAB (MAG-OX) PO SCH (10:01)
[2023-10-05] MEDS: dexAMETHasone 2 MG TAB PO SCH (10:01)
[2023-10-05] MEDS: INSULIN LISPRO (NovoLOG) PER UNIT SC SCH ×4 (10:02→22:08)
[2023-10-05] MEDS: LEVEMIR (INSULIN DETEMIR) 1 UNITS/0.01ML SC SCH (10:03)
[2023-10-05] MEDS: AUGMENTIN 875 MG TAB PO SCH ×2 (12:54→22:04)
[2023-10-05] MEDS ORDERED: PRED10TA2 PO (13:05)
[2023-10-05] MEDS ORDERED: METF500T13 PO (13:06)
[2023-10-05] MEDS ORDERED: AMOX875T2 PO (13:06)
[2023-10-05] MEDS ORDERED: DEXA6TAB PO (13:06)
[2023-10-05] MEDS ORDERED: LANC30MI XX (13:11)
[2023-10-05] MEDS ORDERED: BLOOKIT21 XX (13:11)
[2023-10-05] MEDS ORDERED: GLUC1TES2 XX (13:11)
[2023-10-05] MEDS ORDERED: ALCOPAD25 TOP (13:11)
[2023-10-05] MEDS ORDERED: PEN-308 SC (13:11)
[2023-10-05 16:31] VITALS: BP 125/60; TEMP 97.9; O2SAT 95
[2023-10-05 19:35] VITALS: BP 104/56; TEMP 98.6; O2SAT 95
[2023-10-05] MEDS: ENALAPRIL MALEATE 10 MG TAB PO SCH (21:00)
[2023-10-05] MEDS: ISOSORBIDE MON. (IMDUR) 30MG XR TAB PO SCH (21:00)
[2023-10-05] MEDS: amLODIPine 5 MG TAB PO SCH (21:00)
[2023-10-05] MEDS: ATORVASTATIN 20 MG TAB PO SCH (22:03)
[2023-10-05] MEDS: FAMOTIDINE 20 MG TAB PO SCH ×2 (22:04→22:11)
[2023-10-05] MEDS: DULoxetine 30MG CAPSULE (CYMBALTA) PO SCH (22:04)
[2023-10-05] MEDS: CLOPIDOGREL 75 MG TAB PO SCH (22:04)
[2023-10-05] MEDS: DIGOXIN 0.125 MG TAB PO SCH (22:06)
[2023-10-05 23:17] VITALS: BP 113/62; TEMP 98.8; O2SAT 92
[2023-10-06] MEDS: COMBIVENT RESPIMAT 100-20MCG INHALER 4GM INH SCH ×6 (03:04→22:43)
[2023-10-06 03:17] VITALS: BP 117/57; TEMP 98.3; O2SAT 97
[2023-10-06 05:26] LABS: BASO % 0.1 % (0.0-1.0); EOS % 0.1 % (0.0-3.0); HEMATOCRIT 25.7 % (36.0-47.0); HEMOGLOBIN 8.1 g/dl (12.0-15.5); LYMPH # 1.2 10^3/uL (1.5-5.0); LYMPH % 7.3 % (24.0-44.0); MEAN CORPUSCULAR HEMOGLOBIN 29.2 pg (27.0-33.0); MEAN CORPUSCULAR HGB CONC 31.5 g/dl (32.0-36.5); MEAN CORPUSCULAR VOLUME 92.8 fl (80.0-96.0); MONO % 6.1 % (2.0-8.0); NEUTROPHILS # 13.8 10^3/uL (1.5-8.5); NEUTROPHILS % 84.6 % (36.0-66.0); PLATELET COUNT, AUTOMATED 226 10^3/uL (150-450); RED BLOOD COUNT 2.77 10^6/uL (4.00-5.40); WHITE BLOOD COUNT 16.3 10^3/uL (4.0-10.0)
[2023-10-06 05:37] LABS: CALCIUM LEVEL 8.3 MG/DL (8.3-10.6); CREATININE FOR GFR 1.29 MG/DL (0.55-1.30); GLOMERULAR FILTRATION RATE 43.5 (>39); POTASSIUM SERUM 3.8 MMOL/L (3.5-5.1)
[2023-10-06 08:23] VITALS: BP 132/60; TEMP 97.6; O2SAT 93
[2023-10-06] MEDS: DOCUSATE SODIUM 100MG CAPSULE PO SCH ×2 (09:00→21:17)
[2023-10-06] MEDS ORDERED: LEVEMIR (INSULIN DETEMIR) 1 UNITS/0.01ML SC SCH (09:00)
[2023-10-06] MEDS: INSULIN LISPRO (NovoLOG) PER UNIT SC SCH ×2 (09:54→12:00)
[2023-10-06] MEDS: AUGMENTIN 875 MG TAB PO SCH ×2 (09:55→21:15)
[2023-10-06] MEDS: dexAMETHasone 2 MG TAB PO SCH (09:55)
[2023-10-06] MEDS: MAGNESIUM OXIDE 400MG TAB (MAG-OX) PO SCH (09:56)
[2023-10-06] MEDS: MULTIVITAMINS/MINERALS THERAP 1 TAB PO SCH (09:56)
[2023-10-06] MEDS: APIXABAN 2.5 MG TAB (ELIQUIS) PO SCH ×2 (09:56→21:15)
[2023-10-06] MEDS: CHLORTHALIDONE 12.5MG PER 1/2 TABLET PO SCH (09:56)
[2023-10-06] MEDS: VITAMIN D 1,000 INTERNATIONAL UNITS TABLET PO SCH (09:56)
[2023-10-06] MEDS: METOPROLOL TART 50 MG TAB PO SCH ×2 (10:00→21:16)
[2023-10-06] MEDS ORDERED: DEXA6TAB PO (10:55)
[2023-10-06] MEDS ORDERED: AMOX875T2 PO (10:55)
[2023-10-06] MEDS: TIOTROPIUM INHALER/CAPSULE (SPIRIVA) INH SCH (11:17)
[2023-10-06] MEDS: ADVAIR HFA 230/21MCG INHALER INH SCH ×2 (11:18→19:38)
[2023-10-06] MEDS ORDERED: LANTINJ4 SC (13:29)
[2023-10-06] MEDS: DEXTROSE 50% 50ML SYRINGE IV PRN ×2 (15:04→17:31)
[2023-10-06 16:32] VITALS: BP 115/56; TEMP 97.2; O2SAT 94
[2023-10-06 17:55] VITALS: BP 109/65; TEMP 97.9; O2SAT 94
[2023-10-06 20:42] VITALS: BP 116/63; TEMP 98.6; O2SAT 95
[2023-10-06] MEDS ORDERED: INSULIN LISPRO (NovoLOG) PER UNIT SC SCH (21:00)
[2023-10-06] MEDS: CLOPIDOGREL 75 MG TAB PO SCH (21:15)
[2023-10-06] MEDS: ENALAPRIL MALEATE 10 MG TAB PO SCH (21:16)
[2023-10-06] MEDS: DULoxetine 30MG CAPSULE (CYMBALTA) PO SCH (21:16)
[2023-10-06] MEDS: DIGOXIN 0.125 MG TAB PO SCH (21:16)
[2023-10-06] MEDS: amLODIPine 5 MG TAB PO SCH (21:17)
[2023-10-06] MEDS: ISOSORBIDE MON. (IMDUR) 30MG XR TAB PO SCH (21:17)
[2023-10-06] MEDS: ATORVASTATIN 20 MG TAB PO SCH (21:17)
[2023-10-06] MEDS: FAMOTIDINE 20 MG TAB PO SCH (21:17)
[2023-10-07] VITALS (9 sets, daily range): BP systolic 88–114; BP diastolic 45–56; TEMP 97.9–98.2; O2SAT 92–97
[2023-10-07] MEDS: COMBIVENT RESPIMAT 100-20MCG INHALER 4GM INH SCH ×4 (04:27→14:58)
[2023-10-07 06:03] LABS: BASO % 0.1 % (0.0-1.0); EOS # 0.1 10^3/uL (0.0-0.5); EOS % 0.3 % (0.0-3.0); HEMATOCRIT 23.2 % (36.0-47.0); HEMOGLOBIN 7.3 g/dl (12.0-15.5); LYMPH # 1.7 10^3/uL (1.5-5.0); LYMPH % 9.1 % (24.0-44.0); MEAN CORPUSCULAR HGB CONC 31.5 g/dl (32.0-36.5); MEAN CORPUSCULAR VOLUME 92.1 fl (80.0-96.0); MONO # 1.2 10^3/uL (0.0-0.8); MONO % 6.3 % (2.0-8.0); NEUTROPHILS # 15.1 10^3/uL (1.5-8.5); NEUTROPHILS % 81.3 % (36.0-66.0); PLATELET COUNT, AUTOMATED 245 10^3/uL (150-450); RED BLOOD COUNT 2.52 10^6/uL (4.00-5.40); WHITE BLOOD COUNT 18.5 10^3/uL (4.0-10.0)
[2023-10-07] MEDS ORDERED: SODIUM CHLORIDE 0.9% 1000ML IV ONE (06:15)
[2023-10-07 06:23] LABS: CALCIUM LEVEL 8.2 MG/DL (8.3-10.6); CREATININE FOR GFR 1.3 MG/DL (0.55-1.30); GLOMERULAR FILTRATION RATE 43.1 (>39); POTASSIUM SERUM 3.8 MMOL/L (3.5-5.1)
[2023-10-07] MEDS ORDERED: INSULIN LISPRO (NovoLOG) PER UNIT SC SCH ×2 (07:30→21:00)
[2023-10-07] MEDS: ADVAIR HFA 230/21MCG INHALER INH SCH (07:38)
[2023-10-07] MEDS: TIOTROPIUM INHALER/CAPSULE (SPIRIVA) INH SCH (07:38)
[2023-10-07] MEDS: CHLORTHALIDONE 12.5MG PER 1/2 TABLET PO SCH (08:10)
[2023-10-07] MEDS: METOPROLOL TART 50 MG TAB PO SCH (08:10)
[2023-10-07] MEDS: INSULIN LISPRO (NovoLOG) PER UNIT SC SCH ×2 (08:25→13:03)
[2023-10-07] MEDS: AUGMENTIN 875 MG TAB PO SCH (08:26)
[2023-10-07] MEDS: MAGNESIUM OXIDE 400MG TAB (MAG-OX) PO SCH (08:26)
[2023-10-07] MEDS: dexAMETHasone 2 MG TAB PO SCH (08:26)
[2023-10-07] MEDS: APIXABAN 2.5 MG TAB (ELIQUIS) PO SCH (08:26)
[2023-10-07] MEDS: VITAMIN D 1,000 INTERNATIONAL UNITS TABLET PO SCH (08:27)
[2023-10-07] MEDS: MULTIVITAMINS/MINERALS THERAP 1 TAB PO SCH (08:27)
[2023-10-07] MEDS: DOCUSATE SODIUM 100MG CAPSULE PO SCH ×2 (08:27→08:28)
[2023-10-07] MEDS ORDERED: LR 1,000 ML IV ONE (08:40)
[2023-10-07] MEDS ORDERED: LEVEMIR (INSULIN DETEMIR) 1 UNITS/0.01ML SC SCH ×2 (09:00)
[2023-10-07] MEDS ORDERED: LANTINJ4 SC ×2 (09:48→13:45)
[2023-10-07] MEDS ORDERED: AMOX875T2 PO (09:48)
[2023-10-07] MEDS ORDERED: DEXA6TAB PO (09:48)
== END 2023-10-07 15:57 | disposition hospice, home (50) | DRG 871 ==
LOC: EDBD 12:51 → M ED 12:51 → M ED INP 15:24 → M PCU 21:21 → M MSPAV 10-06 17:56
PROVIDERS: ADMIT Student in an Organized Health Care Education/Training Program; ATTEND Student in an Organized Health Care Education/Training Program
PROC: 3E0333Z Introduction of Anti-inflammatory into Peripheral Vein, Percutaneous Approach (ICD-10-PCS; principal; 2023-10-02)
PROC: B246ZZZ Ultrasonography of Right and Left Heart (ICD-10-PCS; 2023-10-02)
DX: A41.9 Sepsis, unspecified organism (principal); U07.1 COVID-19; J12.82 Pneumonia due to coronavirus disease 2019; J96.01 Acute respiratory failure with hypoxia; I21.A1 Myocardial infarction type 2; E11.00 Type 2 diabetes mellitus with hyperosmolarity without nonketotic hyperglycemic-hyperosmolar coma (NKHHC); N17.9 Acute kidney failure, unspecified; E87.20 Acidosis, unspecified; E87.1 Hypo-osmolality and hyponatremia; J44.0 Chronic obstructive pulmonary disease with (acute) lower respiratory infection; E11.65 Type 2 diabetes mellitus with hyperglycemia; E11.22 Type 2 diabetes mellitus with diabetic chronic kidney disease; I25.2 Old myocardial infarction; N18.30 Chronic kidney disease, stage 3 unspecified; I48.0 Paroxysmal atrial fibrillation; E86.0 Dehydration; I25.10 Atherosclerotic heart disease of native coronary artery without angina pectoris; I12.9 Hypertensive chronic kidney disease with stage 1 through stage 4 chronic kidney disease, or unspecified chronic kidney disease; K21.9 Gastro-esophageal reflux disease without esophagitis; F32.A Depression, unspecified; E78.5 Hyperlipidemia, unspecified; Z87.891 Personal history of nicotine dependence; Z90.79 Acquired absence of other genital organ(s); Z95.5 Presence of coronary angioplasty implant and graft; Z79.01 Long term (current) use of anticoagulants; Z79.899 Other long term (current) drug therapy; Z91.041 Radiographic dye allergy status

== ENCOUNTER → 2023-10-21 | Outpatient (REF) | payer OTHER, MEDICARE ==
[~2023-10-21] MED LIST changes: +ALCOPAD25 TOP; +AMOX875T2 PO; +BLOOKIT21 XX; +BREO1INH3 PO; +CHLO125TA PO; +CLOP75TA2 PO; +DEXA6TAB PO; +DIGO0.123 PO; +DULO1CAP5 PO; +ELIQ2.5T PO; +FAMO40TA3 PO; +FLUC150T9 PO; +GLUC1TES2 XX; +ISOS1TAB35 PO; +LANC30MI XX; +LANTINJ4 SC; +PEN-308 SC; +PRED10TA2 PO
== END ==
LOC: M LAB REF 11:42
PROVIDERS: ATTEND Internal Medicine
DX: I50.32 Chronic diastolic (congestive) heart failure (principal); N18.32 Chronic kidney disease, stage 3b

== ENCOUNTER 2023-10-26 09:00 | Outpatient (CLI) | payer OTHER ==
[~2023-10-26] VITALS: Ht 162.6 cm; Wt 49.0 kg
[2023-10-26 08:55] VITALS: BP 133/56; O2SAT 96
[~2023-10-26 09:00] MED LIST changes: +ALBUTEROL SULFATE 2.5MG/0.5ML INH NEB SOLN INH PRN; +EPINEPHrine INJ 1 MG/ML 1ML AMP IM PRN; +IRON SUCROSE 25 MG in NS 23.75 ML IV ONE; +IRON SUCROSE 475 MG in NS 250 ML IV ONE; +NS 1,000 ML IV SCH; +diphenhydrAMINE 50MG/ML VIAL IV PRN; +methylPREDNISolone 125MG 2ML VIAL IV PRN
[2023-10-26 10:15] VITALS: BP 129/59; O2SAT 97
[2023-10-26 11:15] VITALS: BP 160/67; O2SAT 96
[2023-10-26 14:30] VITALS: BP 134/61; O2SAT 96
== END 2023-10-26 14:40 | disposition home or self-care (01) ==
LOC: M INFU 09:00
PROVIDERS: ATTEND Internal Medicine
DX: D50.9 Iron deficiency anemia, unspecified (principal)
CPT/HCPCS: 96365; 96366; J1756

== ENCOUNTER → 2023-11-05 | Outpatient (REF) | payer OTHER ==
[~2023-11-05] MED LIST changes: -ALBUTEROL SULFATE 2.5MG/0.5ML INH NEB SOLN INH PRN; -EPINEPHrine INJ 1 MG/ML 1ML AMP IM PRN; -IRON SUCROSE 25 MG in NS 23.75 ML IV ONE; -IRON SUCROSE 475 MG in NS 250 ML IV ONE; -NS 1,000 ML IV SCH; +PROT1TAB2 PO; +VITA100065 PO; +VITA200012 PO; +VITMTA PO; -diphenhydrAMINE 50MG/ML VIAL IV PRN; -methylPREDNISolone 125MG 2ML VIAL IV PRN
== END ==
LOC: M LAB REF 16:02
PROVIDERS: ATTEND Nurse Practitioner Family
DX: R60.9 Edema, unspecified (principal)

== ENCOUNTER 2023-11-27 17:13 | Emergency (ER) | payer OTHER ==
[~2023-11-27] VITALS: Ht 162.6 cm; Wt 48.4 kg
[~2023-11-27 17:13] MED LIST changes: -PANT-23 PO
[2023-11-27 18:02] LABS: IONIZED CALCIUM 4.8 MG/DL (4.5-5.3)
[2023-11-27 18:07] LABS: BASO % 0.4 % (0.0-1.0); EOS # 0.1 10^3/uL (0.0-0.5); EOS % 0.9 % (0.0-3.0); HEMOGLOBIN 11.9 g/dl (12.0-15.5); LYMPH # 1.2 10^3/uL (1.5-5.0); LYMPH % 14.1 % (24.0-44.0); MEAN CORPUSCULAR HEMOGLOBIN 30.7 pg (27.0-33.0); MEAN CORPUSCULAR HGB CONC 32.2 g/dl (32.0-36.5); MEAN CORPUSCULAR VOLUME 95.4 fl (80.0-96.0); MONO # 0.6 10^3/uL (0.0-0.8); MONO % 6.8 % (2.0-8.0); NEUTROPHILS # 6.6 10^3/uL (1.5-8.5); NEUTROPHILS % 77.4 % (36.0-66.0); PLATELET COUNT, AUTOMATED 239 10^3/uL (150-450); RED BLOOD COUNT 3.88 10^6/uL (4.00-5.40); WHITE BLOOD COUNT 8.5 10^3/uL (4.0-10.0)
[2023-11-27 18:47] LABS: DIGOXIN LEVEL 2.2 NG/ML (0.8-2.0)
[2023-11-27 18:48] LABS: ALBUMIN 3.1 G/DL (3.2-5.2); ALKALINE PHOSPHATASE 83 U/L (46-116); ALT/SGPT 20 U/L (7.0-40); AST/SGOT 23 U/L (<34); BILIRUBIN,DIRECT 0.1 MG/DL (<0.4); BILIRUBIN,TOTAL 0.3 MG/DL (0.3-1.2); BLOOD UREA NITROGEN 21 MG/DL (9-23); CALCIUM LEVEL 9.4 MG/DL (8.3-10.6); CARBON DIOXIDE LEVEL 30 MMOL/L (20-31); CHLORIDE LEVEL 103 MMOL/L (98-107); CREATININE FOR GFR 0.97 MG/DL (0.55-1.30); GLOMERULAR FILTRATION RATE > 60.0 (>39); GLUCOSE, FASTING 147 MG/DL (74-106); MAGNESIUM LEVEL 1.3 MG/DL (1.8-2.4); POTASSIUM SERUM 4.2 MMOL/L (3.5-5.1); SODIUM LEVEL 139 MMOL/L (136-145); TOTAL PROTEIN 5.9 G/DL (5.7-8.2)
[2023-11-27 18:50] LABS: THYROID STIMULATING HORMONE 1.492 uIU/ML (0.55-4.78); THYROXINE (T4) 11.2 UG/DL (4.5-10.9)
[2023-11-27] MEDS ORDERED: MAG SULF 1GM/100ML (MAG RUN) 1 GM in IV 1 EA IV ONE ×2 (18:55→19:45)
[2023-11-27 19:17] LABS: RSV AMPLIFICATION NEGATIVE (NEGATIVE)
[2023-11-27] MEDS ORDERED: PANT-23 PO (21:30)
[2023-11-27] MEDS ORDERED: HOME MED LIST COMPLETE! XX SCH (21:30)
[2023-11-27 23:05] VITALS: BP 178/73; TEMP 98.9; O2SAT 92
== END 2023-11-27 23:18 | disposition home or self-care (01) ==
LOC: M ED 17:13
DX: E83.42 Hypomagnesemia (principal); R89.2 Abnormal level of other drugs, medicaments and biological substances in specimens from other organs, systems and tissues; I45.10 Unspecified right bundle-branch block; I48.0 Paroxysmal atrial fibrillation; J44.1 Chronic obstructive pulmonary disease with (acute) exacerbation; E11.9 Type 2 diabetes mellitus without complications; Z91.048 Other nonmedicinal substance allergy status; Z79.01 Long term (current) use of anticoagulants; Z79.899 Other long term (current) drug therapy; Z79.51 Long term (current) use of inhaled steroids; Z79.4 Long term (current) use of insulin; Z79.52 Long term (current) use of systemic steroids; Z79.84 Long term (current) use of oral hypoglycemic drugs
CPT/HCPCS: 80048; 80076; 80162; 82330; 83735; 84436; 84443; 85025; 87631; 93005; 93041; 94760; 96365; 96366; 99285; J3475

== ENCOUNTER → 2023-11-27 | Outpatient (REF) | payer OTHER ==
[~2023-11-27] MED LIST changes: +PANT-23 PO
== END ==
LOC: M LAB REF 12:15
PROVIDERS: ATTEND Internal Medicine
DX: I48.0 Paroxysmal atrial fibrillation (principal); J44.1 Chronic obstructive pulmonary disease with (acute) exacerbation

== ENCOUNTER → 2023-11-30 | Outpatient (CLI) | payer OTHER ==
[~2023-11-30] MED LIST changes: +PANT-23 PO
== END ==
LOC: M WUC 14:26
PROVIDERS: ATTEND Internal Medicine
DX: R05.9 Cough, unspecified (principal); J44.9 Chronic obstructive pulmonary disease, unspecified; R06.00 Dyspnea, unspecified; J18.1 Lobar pneumonia, unspecified organism; J98.4 Other disorders of lung

== ENCOUNTER → 2023-12-11 | Outpatient (REF) | payer OTHER | LOC: M LAB REF 17:36 | PROVIDERS: ATTEND Internal Medicine | DX: I48.0 Paroxysmal atrial fibrillation (principal) ==

== ENCOUNTER → 2023-12-25 | Outpatient (CLI) | payer OTHER | LOC: M PLAIMG 15:06 | PROVIDERS: ATTEND Internal Medicine Cardiovascular Disease | DX: I50.32 Chronic diastolic (congestive) heart failure (principal); I25.10 Atherosclerotic heart disease of native coronary artery without angina pectoris; I35.1 Nonrheumatic aortic (valve) insufficiency ==

== ENCOUNTER → 2023-12-30 | Outpatient (CLI) | payer OTHER ==
[~2023-12-30] MED LIST changes: +IPRA0.00 INH; +NORV5TAB PO; +PANT40TA29 PO; +SPIR12.9 INH; -SPIR12.9 PO
== END ==
LOC: M WUC 11:30
PROVIDERS: ATTEND Nurse Practitioner Family
DX: E83.42 Hypomagnesemia (principal)

== ENCOUNTER → 2024-01-06 | Outpatient (CLI) | payer OTHER ==
[~2024-01-06] MED LIST changes: -ASPI-161 PO; +ASPI-615 PO
== END ==
LOC: M WUC 12:01
PROVIDERS: ATTEND Internal Medicine
DX: J18.9 Pneumonia, unspecified organism (principal); R91.8 Other nonspecific abnormal finding of lung field

== ENCOUNTER 2024-01-15 09:00 | Day surgery (SDC) | payer OTHER ==
[~2024-01-15] VITALS: Ht 162.6 cm; Wt 46.0 kg
[2024-01-15] MEDS: NS 1,000 ML IV ONE (09:26)
[2024-01-15 10:57] VITALS: TEMP 97.9
[2024-01-15 11:13] VITALS: BP 157/70; O2SAT 95
== END 2024-01-15 11:26 | disposition home or self-care (01) ==
LOC: M OPP 09:00
PROVIDERS: ATTEND Surgery
DX: Z86.010 Personal history of colon polyps (principal); D12.0 Benign neoplasm of cecum; D12.2 Benign neoplasm of ascending colon; K64.0 First degree hemorrhoids; Z87.891 Personal history of nicotine dependence; E11.9 Type 2 diabetes mellitus without complications; R07.9 Chest pain, unspecified; I25.9 Chronic ischemic heart disease, unspecified; Z86.74 Personal history of sudden cardiac arrest; Z95.5 Presence of coronary angioplasty implant and graft; Z79.02 Long term (current) use of antithrombotics/antiplatelets; Z79.4 Long term (current) use of insulin; Z79.51 Long term (current) use of inhaled steroids; Z79.52 Long term (current) use of systemic steroids; Z79.899 Other long term (current) drug therapy; Z91.048 Other nonmedicinal substance allergy status

== ENCOUNTER → 2024-01-22 | Outpatient (REF) | payer OTHER ==
[2024-01-22 18:19] LABS: PERCENT SATURATION 18.8 % (13.2-45.0)
[2024-01-22 18:23] LABS: FERRITIN 113.6 NG/ML (7.3-270.7)
== END ==
LOC: M LAB REF 16:57
PROVIDERS: ATTEND Internal Medicine
DX: D50.9 Iron deficiency anemia, unspecified (principal)

== ENCOUNTER → 2024-03-03 | Outpatient (CLI) | payer OTHER | LOC: M PLAIMG 10:04 | PROVIDERS: ATTEND Internal Medicine Pulmonary Disease | DX: J44.89 Other specified chronic obstructive pulmonary disease (principal); R91.8 Other nonspecific abnormal finding of lung field ==

== ENCOUNTER → 2024-04-25 | Outpatient (REF) | payer OTHER | LOC: M LAB REF 16:28 | PROVIDERS: ATTEND Internal Medicine | DX: E11.21 Type 2 diabetes mellitus with diabetic nephropathy (principal); Z80.0 Family history of malignant neoplasm of digestive organs ==

== ENCOUNTER → 2024-05-12 | Outpatient (CLI) | payer OTHER ==
[~2024-05-12] MED LIST changes: +PROHANCE 279.3MG/ML 5ML VIAL ONE
== END ==
LOC: M PLAIMG 12:30
PROVIDERS: ATTEND Internal Medicine
DX: R93.2 Abnormal findings on diagnostic imaging of liver and biliary tract (principal); R63.4 Abnormal weight loss
CPT/HCPCS: 74183; A9576

== ENCOUNTER 2024-06-23 10:04 | Inpatient (IN) | payer OTHER ==
[~2024-06-23] VITALS: Ht 162.6 cm; Wt 40.9 kg
[~2024-06-23 10:04] MED LIST changes: -PROHANCE 279.3MG/ML 5ML VIAL ONE
[2024-06-23 11:01] LABS: BASO % 0.2 % (0.0-1.0); EOS % 0.2 % (0.0-3.0); HEMATOCRIT 36.8 % (36.0-47.0); HEMOGLOBIN 12.8 g/dl (12.0-15.5); LYMPH # 1.1 10^3/uL (1.5-5.0); LYMPH % 7.6 % (24.0-44.0); MEAN CORPUSCULAR HEMOGLOBIN 33.4 pg (27.0-33.0); MEAN CORPUSCULAR HGB CONC 34.8 g/dl (32.0-36.5); MEAN CORPUSCULAR VOLUME 96.1 fl (80.0-96.0); MONO # 0.8 10^3/uL (0.0-0.8); MONO % 5.7 % (2.0-8.0); NEUTROPHILS # 12.5 10^3/uL (1.5-8.5); NEUTROPHILS % 85.8 % (36.0-66.0); PLATELET COUNT, AUTOMATED 240 10^3/uL (150-450); RED BLOOD COUNT 3.83 10^6/uL (4.00-5.40); WHITE BLOOD COUNT 14.6 10^3/uL (4.0-10.0)
[2024-06-23] MEDS: IPRATROPIUM 0.5MG/ALBUTEROL 2.5MG INH SOL UD 3ML (DUONEB) NEB ONE (11:15)
[2024-06-23] MEDS: ALBUTEROL SULFATE 2.5MG/0.5ML INH NEB SOLN INH ONE (11:15)
[2024-06-23 11:21] LABS: ABG BASE EXCESS 2.8 (-2.0-2.0); ABG HCO3 27.2 MMOL/L (22.0-26.0); ABG O2 SATURATION 93.3 % (95.0-99.0); ABG PARTIAL PRESSURE CO2 41.2 mmHg (35.0-45.0); ABG PARTIAL PRESSURE O2 63.2 mmHg (75.0-100.0); ABG STANDARD HCO3 26.9 MMOL/L. (22.0-26.0); ABG TOTAL CO2 28.5 MMOL/L (23.0-31.0); ABG pH (ARTERIAL) 7.438 UNITS (7.350-7.450)
[2024-06-23 11:31] LABS: CK-MB VALUE MASS 3.2 NG/ML (<3.6)
[2024-06-23 11:34] LABS: ALBUMIN 3.1 G/DL (3.2-5.2); BILIRUBIN,DIRECT 0.2 MG/DL (<0.4); BILIRUBIN,TOTAL 0.6 MG/DL (0.3-1.2); CALCIUM LEVEL 9.4 MG/DL (8.3-10.6); CREATININE FOR GFR 1.1 MG/DL (0.55-1.30); GLOMERULAR FILTRATION RATE 52.1 (>39); MAGNESIUM LEVEL 1.5 MG/DL (1.8-2.4); MB/CK RELATIVE INDEX 7.8 (< OR =4); POTASSIUM SERUM 4.4 MMOL/L (3.5-5.1); TOTAL PROTEIN 6.2 G/DL (5.7-8.2)
[2024-06-23 11:35] LABS: THYROID STIMULATING HORMONE 0.847 uIU/ML (0.55-4.78)
[2024-06-23] MEDS ORDERED: ISOVUE-370 76% 100ML VIAL As Ordered ONE (11:54)
[2024-06-23 12:23] LABS: MB/CK RELATIVE INDEX 12.12 (< OR =4)
[2024-06-23] MEDS ORDERED: CARV6.25 PO (13:58)
[2024-06-23] MEDS ORDERED: ENAL1TAB46 PO (13:58)
[2024-06-23] MEDS ORDERED: HOME MED LIST COMPLETE! XX SCH (14:10)
[2024-06-23] MEDS ORDERED: IPRATROPIUM 0.5MG/ALBUTEROL 2.5MG INH SOL UD 3ML (DUONEB) NEB PRN (14:35)
[2024-06-23] MEDS ORDERED: GLUCAGON INJ 1MG VIAL SC PRN (14:45)
[2024-06-23] MEDS ORDERED: GLUCOSE 4 GM CHEW PO PRN (14:45)
[2024-06-23] MEDS ORDERED: DEXTROSE 50% 50ML SYRINGE IV PRN (14:45)
[2024-06-23 15:06] LABS: THYROXINE (T4) 10.7 UG/DL (4.5-10.9)
[2024-06-23 15:15] VITALS: BP 112/67; TEMP 98.8; O2SAT 88
[2024-06-23 15:28] LABS: HEMOGLOBIN A1c 5.9 % (4.0-6.0)
[2024-06-23] MEDS: LEVALBUTEROL 1.25MG 0.5ML CONCENTRATE NEB INH SCH (15:36)
[2024-06-23] MEDS ORDERED: methylPREDNISolone 40MG 1ML VIAL IV SCH (17:00)
[2024-06-23] MEDS: INSULIN LISPRO (NovoLOG) PER UNIT SC ONE (17:25)
[2024-06-23] MEDS: METOCLOPRAMIDE 5 MG TAB PO SCH (17:27)
[2024-06-23] MEDS: INSULIN LISPRO (NovoLOG) PER UNIT SC SCH ×2 (17:28→20:34)
[2024-06-23] MEDS: methylPREDNISolone 40MG 1ML VIAL IV SCH (17:36)
[2024-06-23] MEDS: SYMBICORT 160/4.5MCG INHALER 6GM INH SCH (19:17)
[2024-06-23 20:00] VITALS: BP 131/71; TEMP 97.9; O2SAT 92
[2024-06-23] MEDS: AZITHROMYCIN 250MG TABLET PO SCH (20:21)
[2024-06-23] MEDS: DULoxetine 30MG CAPSULE (CYMBALTA) PO SCH (20:21)
[2024-06-23] MEDS: PANTOPRAZOLE 40MG TAB (PROTONIX) PO SCH (20:22)
[2024-06-23] MEDS: DIGOXIN 0.125 MG TAB PO SCH (20:22)
[2024-06-23] MEDS: guaiFENesin ER TABLET 600 MG TAB PO SCH (20:22)
[2024-06-23] MEDS: APIXABAN 2.5 MG TAB (ELIQUIS) PO SCH (20:22)
[2024-06-23] MEDS: SENOKOT S TAB PO SCH (20:23)
[2024-06-23] MEDS: ATORVASTATIN 20 MG TAB PO SCH (20:23)
[2024-06-23] MEDS: CARVedilol 6.25 MG TAB PO SCH (20:27)
[2024-06-23] MEDS: LEVEMIR (INSULIN DETEMIR) 1 UNITS/0.01ML SC SCH (20:33)
[2024-06-24 04:06] VITALS: BP 119/49; TEMP 98.2; O2SAT 93
[2024-06-24 06:19] LABS: BASO % 0.2 % (0.0-1.0); HEMATOCRIT 35.5 % (36.0-47.0); HEMOGLOBIN 12.5 g/dl (12.0-15.5); LYMPH # 1.2 10^3/uL (1.5-5.0); LYMPH % 9.2 % (24.0-44.0); MEAN CORPUSCULAR HEMOGLOBIN 33.4 pg (27.0-33.0); MEAN CORPUSCULAR HGB CONC 35.2 g/dl (32.0-36.5); MEAN CORPUSCULAR VOLUME 94.9 fl (80.0-96.0); MONO # 0.7 10^3/uL (0.0-0.8); NEUTROPHILS # 11.2 10^3/uL (1.5-8.5); NEUTROPHILS % 85.1 % (36.0-66.0); PLATELET COUNT, AUTOMATED 296 10^3/uL (150-450); RED BLOOD COUNT 3.74 10^6/uL (4.00-5.40); WHITE BLOOD COUNT 13.1 10^3/uL (4.0-10.0)
[2024-06-24 06:53] LABS: CALCIUM LEVEL 9.3 MG/DL (8.3-10.6); CREATININE FOR GFR 1.63 MG/DL (0.55-1.30); GLOMERULAR FILTRATION RATE 33.1 (>39); POTASSIUM SERUM 4.8 MMOL/L (3.5-5.1)
[2024-06-24] MEDS: INSULIN LISPRO (NovoLOG) PER UNIT SC SCH (07:30)
[2024-06-24] MEDS: ISOSORBIDE MON. (IMDUR) 30MG XR TAB PO SCH (08:34)
[2024-06-24] MEDS: MAGNESIUM OXIDE 400MG TAB (MAG-OX) PO SCH (08:35)
[2024-06-24] MEDS: TIOTROPIUM INHALER/CAPSULE (SPIRIVA) INH SCH (08:38)
[2024-06-24] MEDS ORDERED: LEVEMIR (INSULIN DETEMIR) 1 UNITS/0.01ML SC SCH (09:00)
[2024-06-24] MEDS ORDERED: NS 500 ML IV ONE (10:30)
[2024-06-24 10:51] LABS: DIGOXIN LEVEL 2.9 NG/ML (0.8-2.0)
[2024-06-24] MEDS: NS 1,000 ML IV SCH (11:16)
[2024-06-24] MEDS: DOXYCYCLINE HYCLATE 100MG TABLET PO SCH (11:16)
[2024-06-24 12:00] VITALS: BP 133/54; TEMP 98.1; O2SAT 98
[2024-06-24 20:12] VITALS: BP 130/56; TEMP 98.2; O2SAT 92
[2024-06-24] MEDS ORDERED: PILL CUTTER 1 EACH XX ONE (21:10)
[2024-06-25 04:10] VITALS: BP 132/58; TEMP 97.5; O2SAT 92
[2024-06-25 06:30] LABS: BASO % 0.2 % (0.0-1.0); HEMOGLOBIN 10.8 g/dl (12.0-15.5); LYMPH # 1.1 10^3/uL (1.5-5.0); LYMPH % 7.3 % (24.0-44.0); MEAN CORPUSCULAR HEMOGLOBIN 32.5 pg (27.0-33.0); MEAN CORPUSCULAR HGB CONC 33.8 g/dl (32.0-36.5); MEAN CORPUSCULAR VOLUME 96.4 fl (80.0-96.0); MONO # 0.7 10^3/uL (0.0-0.8); MONO % 4.8 % (2.0-8.0); NEUTROPHILS % 86.9 % (36.0-66.0); PLATELET COUNT, AUTOMATED 268 10^3/uL (150-450); RED BLOOD COUNT 3.32 10^6/uL (4.00-5.40); WHITE BLOOD COUNT 14.9 10^3/uL (4.0-10.0)
[2024-06-25 07:05] LABS: CALCIUM LEVEL 8.9 MG/DL (8.3-10.6); CREATININE FOR GFR 1.74 MG/DL (0.55-1.30); GLOMERULAR FILTRATION RATE 30.7 (>39); POTASSIUM SERUM 5.2 MMOL/L (3.5-5.1)
[2024-06-25] MEDS: NS 500 ML IV ONE (08:50)
[2024-06-25] MEDS: LEVEMIR (INSULIN DETEMIR) 1 UNITS/0.01ML SC SCH (08:55)
[2024-06-25 12:00] VITALS: BP 131/51; TEMP 97.9; O2SAT 91
[2024-06-25] MEDS: PATIROMER SORBITEX CALCIUM 8.4 GM POWDER PACKET (VELTASSA) PO SCH (13:44)
[2024-06-25 20:03] VITALS: BP 103/47; TEMP 98.1; O2SAT 92
[2024-06-26 04:45] VITALS: BP 106/47; TEMP 97.9; O2SAT 89
[2024-06-26 06:15] LABS: BASO # 0.1 10^3/uL (0.0-0.2); BASO % 0.3 % (0.0-1.0); EOS # 0.1 10^3/uL (0.0-0.5); EOS % 0.3 % (0.0-3.0); HEMATOCRIT 34.4 % (36.0-47.0); HEMOGLOBIN 11.6 g/dl (12.0-15.5); LYMPH % 12.9 % (24.0-44.0); MEAN CORPUSCULAR HEMOGLOBIN 32.6 pg (27.0-33.0); MEAN CORPUSCULAR HGB CONC 33.7 g/dl (32.0-36.5); MEAN CORPUSCULAR VOLUME 96.6 fl (80.0-96.0); MONO # 1.2 10^3/uL (0.0-0.8); MONO % 7.8 % (2.0-8.0); NEUTROPHILS # 11.7 10^3/uL (1.5-8.5); PLATELET COUNT, AUTOMATED 291 10^3/uL (150-450); RED BLOOD COUNT 3.56 10^6/uL (4.00-5.40); WHITE BLOOD COUNT 15.5 10^3/uL (4.0-10.0)
[2024-06-26 06:39] LABS: CALCIUM LEVEL 9.2 MG/DL (8.3-10.6); CREATININE FOR GFR 1.38 MG/DL (0.55-1.30); DIGOXIN LEVEL 1.5 NG/ML (0.8-2.0); GLOMERULAR FILTRATION RATE 40.1 (>39); POTASSIUM SERUM 4.6 MMOL/L (3.5-5.1)
[2024-06-26] MEDS: predniSONE 20 MG TAB PO SCH (08:17)
[2024-06-26] MEDS: CEFUROXIME 500 MG TAB PO SCH (08:25)
[2024-06-26 12:00] VITALS: BP 115/63; TEMP 98.2; O2SAT 95
[2024-06-26 20:00] VITALS: BP 112/60; TEMP 98.2; O2SAT 84
[2024-06-27 03:40] VITALS: BP 117/55; TEMP 97.9; O2SAT 99
[2024-06-27 05:50] LABS: BASO % 0.3 % (0.0-1.0); EOS % 0.2 % (0.0-3.0); HEMATOCRIT 32.8 % (36.0-47.0); HEMOGLOBIN 11.1 g/dl (12.0-15.5); LYMPH # 1.7 10^3/uL (1.5-5.0); LYMPH % 13.5 % (24.0-44.0); MEAN CORPUSCULAR HEMOGLOBIN 32.7 pg (27.0-33.0); MEAN CORPUSCULAR HGB CONC 33.8 g/dl (32.0-36.5); MEAN CORPUSCULAR VOLUME 96.8 fl (80.0-96.0); MONO % 8.3 % (2.0-8.0); NEUTROPHILS # 9.5 10^3/uL (1.5-8.5); NEUTROPHILS % 75.5 % (36.0-66.0); PLATELET COUNT, AUTOMATED 280 10^3/uL (150-450); RED BLOOD COUNT 3.39 10^6/uL (4.00-5.40); WHITE BLOOD COUNT 12.6 10^3/uL (4.0-10.0)
[2024-06-27 06:15] LABS: CALCIUM LEVEL 8.6 MG/DL (8.3-10.6); CREATININE FOR GFR 1.4 MG/DL (0.55-1.30); GLOMERULAR FILTRATION RATE 39.5 (>39); PERCENT SATURATION 16.3 % (13.2-45.0); POTASSIUM SERUM 4.8 MMOL/L (3.5-5.1)
[2024-06-27 06:17] LABS: FERRITIN 122.5 NG/ML (7.3-270.7)
[2024-06-27 08:51] VITALS: BP 134/67
[2024-06-27] MEDS ORDERED: MUCI600T31 PO (11:23)
[2024-06-27] MEDS ORDERED: PRED10TA2 PO (11:23)
[2024-06-27] MEDS ORDERED: CEFU50TA PO (11:23)
[2024-06-27] MEDS ORDERED: LEVA1.25 INH (11:23)
[2024-06-27] MEDS ORDERED: METO5TAB2 PO (11:23)
[2024-06-27 12:00] VITALS: BP 134/58; TEMP 98.1; O2SAT 97
[2024-06-27] MEDS: FERRIC CARBOXYMALTOSE INJ 750 MG, VIAL MATE ADAPTER 1 EACH in NS 250 ML IV ONE (12:18)
[2024-06-27] MEDS ORDERED: ALBU2.5V10 INH (13:23)
== END 2024-06-27 14:33 | disposition home health service (06) | DRG 190 ==
LOC: EDBD 10:04 → M ED 10:04 → M ED INP 13:38 → M MSPAV 15:16
PROVIDERS: ADMIT Internal Medicine Nephrology; ATTEND Internal Medicine Nephrology
DX: J44.1 Chronic obstructive pulmonary disease with (acute) exacerbation (principal); E43 Unspecified severe protein-calorie malnutrition; I50.22 Chronic systolic (congestive) heart failure; Z68.1 Body mass index [BMI] 19.9 or less, adult; N17.9 Acute kidney failure, unspecified; J98.11 Atelectasis; E87.3 Alkalosis; I11.0 Hypertensive heart disease with heart failure; I25.10 Atherosclerotic heart disease of native coronary artery without angina pectoris; E11.43 Type 2 diabetes mellitus with diabetic autonomic (poly)neuropathy; I48.0 Paroxysmal atrial fibrillation; J20.9 Acute bronchitis, unspecified; R63.4 Abnormal weight loss; J44.0 Chronic obstructive pulmonary disease with (acute) lower respiratory infection; R09.02 Hypoxemia; J43.9 Emphysema, unspecified; K21.9 Gastro-esophageal reflux disease without esophagitis; F32.A Depression, unspecified; R73.9 Hyperglycemia, unspecified; K31.84 Gastroparesis; E78.5 Hyperlipidemia, unspecified; N28.1 Cyst of kidney, acquired; E11.65 Type 2 diabetes mellitus with hyperglycemia; D50.9 Iron deficiency anemia, unspecified; T38.0X5A Adverse effect of glucocorticoids and synthetic analogues, initial encounter; T50.8X5A Adverse effect of diagnostic agents, initial encounter; Z95.5 Presence of coronary angioplasty implant and graft; Z79.01 Long term (current) use of anticoagulants; Z79.4 Long term (current) use of insulin; Z79.899 Other long term (current) drug therapy

== ENCOUNTER 2024-07-08 05:09 | Emergency (ER) | payer OTHER ==
[~2024-07-08] VITALS: Ht 162.6 cm; Wt 40.9 kg
[~2024-07-08 05:09] MED LIST changes: +ALBU2.5V10 INH; +CARV6.25 PO; +CEFU50TA PO; +ENAL1TAB46 PO; +LEVA1.25 INH; +METO5TAB2 PO; +MUCI600T31 PO
[2024-07-08] MEDS: IPRATROPIUM 0.5MG/ALBUTEROL 2.5MG INH SOL UD 3ML (DUONEB) NEB PRN (05:24)
[2024-07-08 05:51] LABS: VENOUS BASE EXCESS -0.2 (-2.0-2.0); VENOUS O2 SATURATION 91.1 % (60.0-80.0); VENOUS PARTIAL PRESSURE CO2 61.9 mmHg (38.0-50.0); VENOUS PARTIAL PRESSURE O2 65.8 mmHg (30.0-50.0); VENOUS PH 7.274 UNITS (7.330-7.430); VENOUS STANDARD HCO3 24.2 MMOL/L; VENOUS TOTAL CO2 29.9 MMOL/L (24.0-28.0)
[2024-07-08 06:00] LABS: BASO % 0.3 % (0.0-1.0); EOS # 0.2 10^3/uL (0.0-0.5); EOS % 1.2 % (0.0-3.0); HEMATOCRIT 39.9 % (36.0-47.0); HEMOGLOBIN 12.9 g/dl (12.0-15.5); LYMPH # 1.7 10^3/uL (1.5-5.0); LYMPH % 10.6 % (24.0-44.0); MEAN CORPUSCULAR HEMOGLOBIN 32.7 pg (27.0-33.0); MEAN CORPUSCULAR HGB CONC 32.3 g/dl (32.0-36.5); MEAN CORPUSCULAR VOLUME 101.3 fl (80.0-96.0); MONO # 0.9 10^3/uL (0.0-0.8); MONO % 5.5 % (2.0-8.0); NEUTROPHILS # 12.9 10^3/uL (1.5-8.5); NEUTROPHILS % 81.5 % (36.0-66.0); PLATELET COUNT, AUTOMATED 230 10^3/uL (150-450); RED BLOOD COUNT 3.94 10^6/uL (4.00-5.40); WHITE BLOOD COUNT 15.8 10^3/uL (4.0-10.0)
[2024-07-08 07:47] LABS: ABG BASE EXCESS 1.7 (-2.0-2.0); ABG HCO3 27.8 MMOL/L (22.0-26.0); ABG O2 SATURATION 93.1 % (95.0-99.0); ABG PARTIAL PRESSURE CO2 49.4 mmHg (35.0-45.0); ABG PARTIAL PRESSURE O2 66.9 mmHg (75.0-100.0); ABG STANDARD HCO3 25.9 MMOL/L. (22.0-26.0); ABG TOTAL CO2 29.3 MMOL/L (23.0-31.0); ABG pH (ARTERIAL) 7.368 UNITS (7.350-7.450)
[2024-07-08 07:52] LABS: CK-MB VALUE MASS 10.9 NG/ML (<3.6)
[2024-07-08 08:13] LABS: ALBUMIN 2.4 G/DL (3.2-5.2); ALKALINE PHOSPHATASE 70 U/L (46-116); ALT/SGPT 35 U/L (7.0-40); AST/SGOT 48 U/L (<34); BILIRUBIN,DIRECT < 0.1 MG/DL (<0.4); BILIRUBIN,TOTAL 0.3 MG/DL (0.3-1.2); BLOOD UREA NITROGEN 36 MG/DL (9-23); CALCIUM LEVEL 6.9 MG/DL (8.3-10.6); CARBON DIOXIDE LEVEL 25 MMOL/L (20-31); CHLORIDE LEVEL 112 MMOL/L (98-107); CPK CREATINE PHOSPHOKINASE 61 U/L (34-145); CREATININE FOR GFR 0.96 MG/DL (0.55-1.30); GLOMERULAR FILTRATION RATE > 60.0 (>39); GLUCOSE, FASTING 172 MG/DL (74-106); MB/CK RELATIVE INDEX 17.86 (< OR =4); POTASSIUM SERUM 4.8 MMOL/L (3.5-5.1); SODIUM LEVEL 141 MMOL/L (136-145); TOTAL PROTEIN 4.8 G/DL (5.7-8.2)
[2024-07-08] MEDS ORDERED: ISOVUE-370 76% 100ML VIAL As Ordered ONE (08:38)
[2024-07-08 09:25] LABS: CK-MB VALUE MASS 14.8 NG/ML (<3.6)
[2024-07-08 09:26] LABS: MB/CK RELATIVE INDEX 21.76 (< OR =4)
[2024-07-08] MEDS: PIPERACILLIN/TAZOBACTAM SOD 4.5 GM in D5W MINI-BAG PLUS 50 ML IV ONE (10:40)
[2024-07-08] MEDS: ASPIRIN 81MG CHEW TABLET PO ONE (10:46)
[2024-07-08 12:15] VITALS: BP 112/58; TEMP 98.3; O2SAT 94
== END 2024-07-08 12:29 | disposition short-term general hospital (02) ==
LOC: M ED 05:09
DX: I21.4 Non-ST elevation (NSTEMI) myocardial infarction (principal); J44.1 Chronic obstructive pulmonary disease with (acute) exacerbation; A41.9 Sepsis, unspecified organism; J18.9 Pneumonia, unspecified organism; Z87.891 Personal history of nicotine dependence; J43.9 Emphysema, unspecified; Z79.01 Long term (current) use of anticoagulants; Z79.4 Long term (current) use of insulin; Z79.899 Other long term (current) drug therapy
CPT/HCPCS: 36600; 71045; 71275; 80048; 80076; 82550; 82553; 82803; 83605; 84484; 85025; 87040; 87486; 87581; 87633; 87798; 93005; 93041; 94640; 94760; 96365; 99285; J2543; Q9967

== ENCOUNTER 2024-07-23 20:27 | Emergency (ER) | payer OTHER ==
[~2024-07-23] VITALS: Ht 162.6 cm; Wt 49.6 kg
[~2024-07-23 20:27] MED LIST changes: +BREO1INH3 INH; -BREO1INH3 PO
[2024-07-23] MEDS ORDERED: PROPOFOL 1,000 MG/100 ML VIAL As Ordered ONE (20:48)
[2024-07-23] MEDS: ETOMIDATE INJ 20MG/10ML VIAL IV STA (20:51)
[2024-07-23] MEDS ORDERED: ISOVUE-370 76% 100ML VIAL As Ordered ONE (20:52)
[2024-07-23] MEDS ORDERED: ROCURONIUM BROMIDE 50MG/5ML VIAL IV SCH (20:55)
[2024-07-23 20:57] VITALS: O2SAT 98
[2024-07-23] MEDS: propofoL 1,000 MG in IV 1 EA IV SCH (21:30)
[2024-07-23 21:36] LABS: BASO # 0.1 10^3/uL (0.0-0.2); BASO % 0.2 % (0.0-1.0); EOS # 0.2 10^3/uL (0.0-0.5); EOS % 1.1 % (0.0-3.0); HEMATOCRIT 45.4 % (36.0-47.0); HEMOGLOBIN 14.4 g/dl (12.0-15.5); LYMPH # 7.4 10^3/uL (1.5-5.0); LYMPH % 36.2 % (24.0-44.0); MEAN CORPUSCULAR HEMOGLOBIN 33.2 pg (27.0-33.0); MEAN CORPUSCULAR HGB CONC 31.7 g/dl (32.0-36.5); MEAN CORPUSCULAR VOLUME 104.6 fl (80.0-96.0); MONO # 1.1 10^3/uL (0.0-0.8); MONO % 5.3 % (2.0-8.0); NEUTROPHILS # 11.5 10^3/uL (1.5-8.5); NEUTROPHILS % 56.2 % (36.0-66.0); PLATELET COUNT, AUTOMATED 321 10^3/uL (150-450); RED BLOOD COUNT 4.34 10^6/uL (4.00-5.40); WHITE BLOOD COUNT 20.5 10^3/uL (4.0-10.0)
[2024-07-23] MEDS: MIDAZOLAM INJ 2MG/2ML VIAL IV STA (21:37)
[2024-07-23 21:39] VITALS: BP 141/64
[2024-07-23 22:08] LABS: CALCIUM LEVEL 9.3 MG/DL (8.3-10.6); CK-MB VALUE MASS 7.1 NG/ML (<3.6); CREATININE FOR GFR 1.34 MG/DL (0.55-1.30); GLOMERULAR FILTRATION RATE 41.5 (>39); MB/CK RELATIVE INDEX 12.9 (< OR =4); POTASSIUM SERUM 6.1 MMOL/L (3.5-5.1)
[2024-07-23] MEDS: DEXTROSE 50% 50ML SYRINGE IV ONE (22:10)
[2024-07-23] MEDS: PATIROMER SORBITEX CALCIUM 8.4 GM POWDER PACKET (VELTASSA) PO ONE (22:10)
[2024-07-23] MEDS: CALCIUM GLUCONATE 1,000MG/10ML VIAL (100MG/ML) IV ONE (22:10)
[2024-07-23] MEDS: HumuLIN R (REGULAR) INSULIN (NovoLIN R) **100U/ML** PER UNIT IV ONE (22:10)
[2024-07-23] MEDS: NS 1,000 ML IV ONE ×2 (22:15→23:25)
[2024-07-23 22:26] LABS: ABG HCO3 25.2 MMOL/L (22.0-26.0); ABG O2 SATURATION 98.3 % (95.0-99.0); ABG STANDARD HCO3 21.2 MMOL/L. (22.0-26.0); ABG TOTAL CO2 27.1 MMOL/L (23.0-31.0)
[2024-07-23 22:27] LABS: INR 0.95; PARTIAL THROMBOPLASTIN TIME 24.3 SECONDS (24.8-34.2); PROTHROMBIN TIME 12.4 SECONDS (12.5-14.5)
[2024-07-23 22:29] LABS: ABG PARTIAL PRESSURE CO2 64.8 mmHg (35.0-45.0); ABG pH (ARTERIAL) 7.207 UNITS (7.350-7.450)
[2024-07-23 22:32] LABS: CK-MB VALUE MASS 5.7 NG/ML (<3.6)
[2024-07-23 22:33] LABS: DIGOXIN LEVEL 0.6 NG/ML (0.8-2.0)
[2024-07-23 22:37] LABS: MB/CK RELATIVE INDEX 7.21 (< OR =4)
[2024-07-23] MEDS: MIDAZOLAM 100MG/100ML-0.9%NACL 100 MG in IV 1 EA IV SCH (23:20)
[2024-07-24 01:22] LABS: CALCIUM LEVEL 9.8 MG/DL (8.3-10.6); CREATININE FOR GFR 1.27 MG/DL (0.55-1.30); GLOMERULAR FILTRATION RATE 44.2 (>39)
[2024-07-24 01:35] LABS: ABG BASE EXCESS -3.4 (-2.0-2.0); ABG HCO3 24.4 MMOL/L (22.0-26.0); ABG O2 SATURATION 98.6 % (95.0-99.0); ABG PARTIAL PRESSURE CO2 55.3 mmHg (35.0-45.0); ABG PARTIAL PRESSURE O2 117.5 mmHg (75.0-100.0); ABG STANDARD HCO3 21.7 MMOL/L. (22.0-26.0); ABG TOTAL CO2 26.1 MMOL/L (23.0-31.0); ABG pH (ARTERIAL) 7.263 UNITS (7.350-7.450)
[2024-07-24 02:27] VITALS: BP 116/55
[2024-07-24 02:38] VITALS: O2SAT 96
[2024-07-24] MEDS ORDERED: HEPARIN SOD (PORCINE) 5000UNITS/ML 1ML VIAL/SYRINGE IV ONE (02:50)
[2024-07-24] MEDS ORDERED: HEPARIN SOD (PORCINE) 5000UNITS/ML 1ML VIAL/SYRINGE IV PRN (02:50)
[2024-07-24] MEDS: ASPIRIN 81MG CHEW TABLET NG ONE (02:50)
[2024-07-24] MEDS ORDERED: HEPARIN DRIP 25,000 UNITS in IV 1 EA IV SCH (02:50)
[2024-07-24] MEDS: cefTRIAXone SOD 1 GM in D5W MINI-BAG PLUS 50 ML IV ONE (03:50)
[2024-07-24] MEDS: AZITHROMYCIN INJ 500 MG, VIAL MATE ADAPTER 1 EACH in NS 250 ML IV ONE (03:50)
[2024-07-24 05:19] LABS: HEMATOCRIT 44.1 % (36.0-47.0); HEMOGLOBIN 14.4 g/dl (12.0-15.5); MEAN CORPUSCULAR HEMOGLOBIN 33.9 pg (27.0-33.0); MEAN CORPUSCULAR HGB CONC 32.7 g/dl (32.0-36.5); MEAN CORPUSCULAR VOLUME 103.8 fl (80.0-96.0); PLATELET COUNT, AUTOMATED 210 10^3/uL (150-450); RED BLOOD COUNT 4.25 10^6/uL (4.00-5.40)
[2024-07-24] MEDS ORDERED: ENOXAPARIN 60MG/0.6ML SYRINGE (J1650 PER 10MG) SC ONE (07:30)
== END 2024-07-24 07:30 | disposition short-term general hospital (02) ==
LOC: M ED 20:27
DX: J96.90 Respiratory failure, unspecified, unspecified whether with hypoxia or hypercapnia (principal); J44.1 Chronic obstructive pulmonary disease with (acute) exacerbation; I48.91 Unspecified atrial fibrillation; I25.10 Atherosclerotic heart disease of native coronary artery without angina pectoris; I25.2 Old myocardial infarction; E11.9 Type 2 diabetes mellitus without complications; I10 Essential (primary) hypertension; E78.5 Hyperlipidemia, unspecified; E55.9 Vitamin D deficiency, unspecified; Z98.61 Coronary angioplasty status; N28.1 Cyst of kidney, acquired
CPT/HCPCS: 31500; 36600; 70450; 70496; 70498; 71045; 71250; 80047; 80048; 80162; 82550; 82553; 82803; 83605; 84484; 85025; 85027; 85610; 85730; 86850; 86900; 86901; 87486; 87581; 87633; 87798; 93005; 93041; 94760; 96374; 96375; 99291; 99292; J0456; J0612; J0696; J1815; J2250; Q9967

== ENCOUNTER 2024-08-07 08:50 | Inpatient (IN) | payer OTHER ==
[~2024-08-07] VITALS: Ht 162.6 cm; Wt 44.5 kg
[2024-08-07 09:43] LABS: VENOUS BASE EXCESS -0.4 (-2.0-2.0); VENOUS HCO3 25.8 MMOL/L (23.0-27.0); VENOUS O2 SATURATION 67.1 % (60.0-80.0); VENOUS PARTIAL PRESSURE CO2 49.9 mmHg (38.0-50.0); VENOUS PH 7.332 UNITS (7.330-7.430); VENOUS STANDARD HCO3 23.6 MMOL/L; VENOUS TOTAL CO2 27.4 MMOL/L (24.0-28.0)
[2024-08-07] MEDS: IPRATROPIUM 0.5MG/ALBUTEROL 2.5MG INH SOL UD 3ML (DUONEB) NEB PRN (09:53)
[2024-08-07 10:09] LABS: BASO % 0.2 % (0.0-1.0); EOS % 0.4 % (0.0-3.0); HEMATOCRIT 27.8 % (36.0-47.0); LYMPH # 0.5 10^3/uL (1.5-5.0); LYMPH % 4.4 % (24.0-44.0); MEAN CORPUSCULAR HEMOGLOBIN 32.8 pg (27.0-33.0); MEAN CORPUSCULAR HGB CONC 32.4 g/dl (32.0-36.5); MEAN CORPUSCULAR VOLUME 101.5 fl (80.0-96.0); MONO # 0.7 10^3/uL (0.0-0.8); MONO % 6.3 % (2.0-8.0); NEUTROPHILS # 9.3 10^3/uL (1.5-8.5); PLATELET COUNT, AUTOMATED 220 10^3/uL (150-450); RED BLOOD COUNT 2.74 10^6/uL (4.00-5.40); WHITE BLOOD COUNT 10.6 10^3/uL (4.0-10.0)
[2024-08-07] MEDS: methylPREDNISolone 125MG 2ML VIAL IV ONE (10:16)
[2024-08-07 10:19] LABS: ALBUMIN 2.4 G/DL (3.2-5.2); BILIRUBIN,DIRECT 0.1 MG/DL (<0.4); BILIRUBIN,TOTAL 0.5 MG/DL (0.3-1.2); CALCIUM LEVEL 8.3 MG/DL (8.3-10.6); CREATININE FOR GFR 1.03 MG/DL (0.55-1.30); GLOMERULAR FILTRATION RATE 56.2 (>39); POTASSIUM SERUM 4.9 MMOL/L (3.5-5.1); TOTAL PROTEIN 5.7 G/DL (5.7-8.2)
[2024-08-07] MEDS ORDERED: SENTTAB2 PO (11:04)
[2024-08-07] MEDS ORDERED: ASPI81TA26 PO (11:04)
[2024-08-07] MEDS ORDERED: BIOT10009 PO (11:04)
[2024-08-07] MEDS ORDERED: LOPE1CAP5 PO (11:04)
[2024-08-07] MEDS ORDERED: HOME MED LIST COMPLETE! XX SCH (11:05)
[2024-08-07] MEDS: NS 1,000 ML IV ONE (15:27)
[2024-08-07] MEDS ORDERED: ALBUTEROL SULFATE 2.5MG/0.5ML INH NEB SOLN NEB PRN (15:30)
[2024-08-07] MEDS ORDERED: MOM 30ML SUSPENSION UDC PO PRN (15:30)
[2024-08-07] MEDS ORDERED: NITROGLYCERIN 0.3MG SUBL TAB SL PRN (15:30)
[2024-08-07] MEDS ORDERED: GLUCAGON INJ 1MG VIAL SC PRN (15:30)
[2024-08-07] MEDS ORDERED: ACETAMINOPHEN TAB 650MG DOSE (2X325MG) PO PRN (15:30)
[2024-08-07] MEDS ORDERED: MAALOX 30 ML SUSP *UDC PO PRN (15:30)
[2024-08-07] MEDS ORDERED: DEXTROSE 50% 50ML SYRINGE IV PRN (15:30)
[2024-08-07] MEDS ORDERED: GLUCOSE 4 GM CHEW PO PRN (15:30)
[2024-08-07 16:36] LABS: C REACTIVE PROTEIN QUANTITATIV 2.9 MG/DL (<1.0)
[2024-08-07 16:49] LABS: PROCALCITONIN 0.61 ng/ml
[2024-08-07] MEDS: MULTIVITAMINS/MINERALS THERAP 1 TAB PO ONE (17:32)
[2024-08-07] MEDS: NS 1,000 ML IV SCH (17:33)
[2024-08-07 20:28] VITALS: BP 132/74; TEMP 98.8; O2SAT 91
[2024-08-07] MEDS: IPRATROPIUM 0.5MG/ALBUTEROL 2.5MG INH SOL UD 3ML (DUONEB) NEB SCH (21:30)
[2024-08-07] MEDS: ADVAIR HFA 230/21MCG INHALER INH SCH (21:30)
[2024-08-07] MEDS: AZITHROMYCIN INJ 500 MG, VIAL MATE ADAPTER 1 EACH in NS 250 ML IV SCH (21:59)
[2024-08-07] MEDS: PANTOPRAZOLE 40MG TAB (PROTONIX) PO SCH (22:00)
[2024-08-07] MEDS: MAGNESIUM OXIDE 400MG TAB (MAG-OX) PO SCH (22:00)
[2024-08-07] MEDS: APIXABAN 2.5 MG TAB (ELIQUIS) PO SCH (22:00)
[2024-08-07] MEDS: guaiFENesin ER TABLET 600 MG TAB PO SCH (22:00)
[2024-08-07] MEDS: LEVEMIR (INSULIN DETEMIR) 1 UNITS/0.01ML SC SCH (22:01)
[2024-08-07] MEDS: INSULIN LISPRO (NovoLOG) PER UNIT SC SCH (22:02)
[2024-08-07] MEDS: CARVedilol 6.25 MG TAB PO SCH (22:03)
[2024-08-07] MEDS: NITROGLYCERIN 0.4MG SUBL TABLET SL PRN (23:24)
[2024-08-07] MEDS: CEFEPIME HCL 1 GM in D5W 50 ML IV SCH (23:31)
[2024-08-08 01:06] LABS: VENOUS BASE EXCESS -3.6 (-2.0-2.0); VENOUS HCO3 22.8 MMOL/L (23.0-27.0); VENOUS O2 SATURATION 93.7 % (60.0-80.0); VENOUS PARTIAL PRESSURE CO2 47.1 mmHg (38.0-50.0); VENOUS PARTIAL PRESSURE O2 83.9 mmHg (30.0-50.0); VENOUS PH 7.302 UNITS (7.330-7.430); VENOUS STANDARD HCO3 21.4 MMOL/L; VENOUS TOTAL CO2 24.2 MMOL/L (24.0-28.0)
[2024-08-08 01:35] LABS: CK-MB VALUE MASS 1.7 NG/ML (<3.6)
[2024-08-08 01:38] LABS: MB/CK RELATIVE INDEX 6.8 (< OR =4)
[2024-08-08 01:39] LABS: ALBUMIN 2.2 G/DL (3.2-5.2); BILIRUBIN,TOTAL 0.4 MG/DL (0.3-1.2); CALCIUM LEVEL 8.1 MG/DL (8.3-10.6); CREATININE FOR GFR 1.08 MG/DL (0.55-1.30); GLOMERULAR FILTRATION RATE 53.2 (>39); MAGNESIUM LEVEL 1.8 MG/DL (1.8-2.4); POTASSIUM SERUM 5.3 MMOL/L (3.5-5.1); TOTAL PROTEIN 5.1 G/DL (5.7-8.2)
[2024-08-08 04:26] VITALS: BP 128/64; TEMP 97.9; O2SAT 99
[2024-08-08 05:32] LABS: HEMATOCRIT 26.4 % (36.0-47.0); HEMOGLOBIN 8.5 g/dl (12.0-15.5); MEAN CORPUSCULAR HEMOGLOBIN 32.8 pg (27.0-33.0); MEAN CORPUSCULAR HGB CONC 32.2 g/dl (32.0-36.5); MEAN CORPUSCULAR VOLUME 101.9 fl (80.0-96.0); PLATELET COUNT, AUTOMATED 228 10^3/uL (150-450); RED BLOOD COUNT 2.59 10^6/uL (4.00-5.40); WHITE BLOOD COUNT 6.4 10^3/uL (4.0-10.0)
[2024-08-08 05:48] LABS: ALBUMIN 2.1 G/DL (3.2-5.2); ALKALINE PHOSPHATASE 111 U/L (46-116); ALT/SGPT 43 U/L (7.0-40); AST/SGOT 49 U/L (<34); BILIRUBIN,TOTAL 0.5 MG/DL (0.3-1.2); BLOOD UREA NITROGEN 27 MG/DL (9-23); CALCIUM LEVEL 8.4 MG/DL (8.3-10.6); CARBON DIOXIDE LEVEL 26 MMOL/L (20-31); CHLORIDE LEVEL 110 MMOL/L (98-107); CREATININE FOR GFR 1.04 MG/DL (0.55-1.30); DIGOXIN LEVEL < 0.1 NG/ML (0.8-2.0); GLOMERULAR FILTRATION RATE 55.6 (>39); GLUCOSE, FASTING 109 MG/DL (74-106); MAGNESIUM LEVEL 1.8 MG/DL (1.8-2.4); POTASSIUM SERUM 4.7 MMOL/L (3.5-5.1); SODIUM LEVEL 139 MMOL/L (136-145); TOTAL PROTEIN 5.1 G/DL (5.7-8.2)
[2024-08-08] MEDS: TIOTROPIUM INHALER/CAPSULE (SPIRIVA) INH SCH (07:40)
[2024-08-08] MEDS: INSULIN LISPRO (NovoLOG) PER UNIT SC SCH (09:17)
[2024-08-08] MEDS: ATORVASTATIN 20 MG TAB PO SCH (09:17)
[2024-08-08] MEDS: ISOSORBIDE MON. (IMDUR) 30MG XR TAB PO SCH (09:17)
[2024-08-08] MEDS: CHLORTHALIDONE 12.5MG PER 1/2 TABLET PO SCH (09:17)
[2024-08-08] MEDS: DIGOXIN 0.125 MG TAB PO SCH (09:18)
[2024-08-08] MEDS: ASPIRIN 81MG ENTERIC TABLET PO SCH (09:18)
[2024-08-08] MEDS: predniSONE 20 MG TAB PO SCH (09:19)
[2024-08-08] MEDS: amLODIPine 5 MG TAB PO SCH (09:19)
[2024-08-08] MEDS: DULoxetine 30MG CAPSULE (CYMBALTA) PO SCH (09:20)
[2024-08-08] MEDS ORDERED: **NOTE PATIENT COMMENT** MISC XX SCH (09:25)
[2024-08-08 12:00] VITALS: BP 127/70; TEMP 98.2; O2SAT 96
[2024-08-08 13:53] VITALS: O2SAT 93
[2024-08-08] MEDS: AZITHROMYCIN 250MG TABLET PO SCH (17:14)
[2024-08-08 18:28] VITALS: O2SAT 90
[2024-08-08 20:00] VITALS: BP 131/69; TEMP 98.6; O2SAT 94
[2024-08-09 04:00] VITALS: BP 129/65; TEMP 98.6; O2SAT 96
[2024-08-09 05:37] LABS: HEMATOCRIT 25.2 % (36.0-47.0); HEMOGLOBIN 8.1 g/dl (12.0-15.5); MEAN CORPUSCULAR HEMOGLOBIN 32.7 pg (27.0-33.0); MEAN CORPUSCULAR HGB CONC 32.1 g/dl (32.0-36.5); MEAN CORPUSCULAR VOLUME 101.6 fl (80.0-96.0); PLATELET COUNT, AUTOMATED 235 10^3/uL (150-450); RED BLOOD COUNT 2.48 10^6/uL (4.00-5.40); WHITE BLOOD COUNT 8.3 10^3/uL (4.0-10.0)
[2024-08-09 06:13] LABS: CALCIUM LEVEL 8.2 MG/DL (8.3-10.6); CREATININE FOR GFR 1.11 MG/DL (0.55-1.30); GLOMERULAR FILTRATION RATE 51.6 (>39); POTASSIUM SERUM 4.3 MMOL/L (3.5-5.1)
[2024-08-09 09:00] VITALS: O2SAT 93
[2024-08-09 12:00] VITALS: BP 153/68; TEMP 98.6; O2SAT 92
[2024-08-09] MEDS ORDERED: LORazepam 0.5 MG TAB PO PRN (12:00)
[2024-08-09] MEDS ORDERED: PILL CUTTER 1 EACH XX PRN (12:10)
[2024-08-09 20:00] VITALS: BP 131/69; TEMP 98.6; O2SAT 94
[2024-08-09] MEDS: metroNIDAZOLE (FLAGYL) 500MG TABLET PO SCH (21:04)
[2024-08-09] MEDS: CIPROFLOXACIN 500MG TABLET PO SCH (21:14)
[2024-08-10 04:00] VITALS: BP 162/69; TEMP 98.4; O2SAT 95
[2024-08-10 06:17] LABS: HEMOGLOBIN 8.4 g/dl (12.0-15.5); MEAN CORPUSCULAR HEMOGLOBIN 33.3 pg (27.0-33.0); MEAN CORPUSCULAR HGB CONC 32.3 g/dl (32.0-36.5); MEAN CORPUSCULAR VOLUME 103.2 fl (80.0-96.0); PLATELET COUNT, AUTOMATED 237 10^3/uL (150-450); RED BLOOD COUNT 2.52 10^6/uL (4.00-5.40); WHITE BLOOD COUNT 8.1 10^3/uL (4.0-10.0)
[2024-08-10 06:43] LABS: CALCIUM LEVEL 8.9 MG/DL (8.3-10.6); CREATININE FOR GFR 1.16 MG/DL (0.55-1.30); POTASSIUM SERUM 4.4 MMOL/L (3.5-5.1)
[2024-08-10] MEDS: LACTOBACILLUS ACIDOPHILUS CAP (BACID) PO SCH (08:00)
[2024-08-10 08:04] VITALS: BP 161/68
[2024-08-10] MEDS ORDERED: PRED20TA PO (09:06)
[2024-08-10] MEDS ORDERED: CIPR500T39 PO (09:06)
[2024-08-10] MEDS ORDERED: RISATAB3 PO (09:06)
[2024-08-10] MEDS ORDERED: METR-265 PO (09:06)
[2024-08-10 09:24] VITALS: O2SAT 95
[2024-08-10] MEDS ORDERED: ALBU8.5H INH (09:28)
[2024-08-10] MEDS ORDERED: IPRA0.00 INH (09:28)
[2024-08-10 12:00] VITALS: BP 134/62; TEMP 98.8; O2SAT 97
== END 2024-08-10 12:32 | disposition home or self-care (01) | DRG 190 ==
LOC: M ED 08:50 → EDBD 08:50 → M ED INP 15:28 → M MSPAV 18:19
PROVIDERS: ADMIT Family Medicine; ATTEND Internal Medicine
DX: J44.1 Chronic obstructive pulmonary disease with (acute) exacerbation (principal); E43 Unspecified severe protein-calorie malnutrition; I50.42 Chronic combined systolic (congestive) and diastolic (congestive) heart failure; Z68.1 Body mass index [BMI] 19.9 or less, adult; J98.11 Atelectasis; I25.10 Atherosclerotic heart disease of native coronary artery without angina pectoris; I25.2 Old myocardial infarction; I34.0 Nonrheumatic mitral (valve) insufficiency; I48.0 Paroxysmal atrial fibrillation; E83.42 Hypomagnesemia; I11.0 Hypertensive heart disease with heart failure; B96.89 Other specified bacterial agents as the cause of diseases classified elsewhere; E11.43 Type 2 diabetes mellitus with diabetic autonomic (poly)neuropathy; J20.8 Acute bronchitis due to other specified organisms; D64.9 Anemia, unspecified; K52.9 Noninfective gastroenteritis and colitis, unspecified; K31.84 Gastroparesis; E78.5 Hyperlipidemia, unspecified; F32.A Depression, unspecified; K21.9 Gastro-esophageal reflux disease without esophagitis; Z90.49 Acquired absence of other specified parts of digestive tract; Z90.79 Acquired absence of other genital organ(s); Z11.52 Encounter for screening for COVID-19; Z87.891 Personal history of nicotine dependence; Z79.01 Long term (current) use of anticoagulants; Z79.82 Long term (current) use of aspirin; Z79.4 Long term (current) use of insulin; Z79.899 Other long term (current) drug therapy; Z95.5 Presence of coronary angioplasty implant and graft

== ENCOUNTER → 2024-08-11 | Outpatient (REF) | payer OTHER ==
[~2024-08-11] MED LIST changes: +ASPI81TA26 PO; +BIOT10009 PO; +CIPR500T39 PO; +LOPE1CAP5 PO; +METR-265 PO; +PRED20TA PO; +RISATAB3 PO; +SENTTAB2 PO
== END ==
LOC: M LAB REF 16:54
PROVIDERS: ATTEND Internal Medicine
DX: R06.02 Shortness of breath (principal)

== ENCOUNTER → 2024-08-19 | Outpatient (REF) | payer OTHER | LOC: M LAB REF 16:10 | PROVIDERS: ATTEND Internal Medicine | DX: I50.23 Acute on chronic systolic (congestive) heart failure (principal) ==

== ENCOUNTER 2024-09-08 23:02 | Emergency (ER) | payer OTHER ==
[2024-09-09] MEDS ORDERED: CEFU50TA PO (01:54)
[2024-09-09] MEDS ORDERED: PRED10TA2 PO (01:54)
[2024-09-09] MEDS ORDERED: IPRA0.00 INH (01:57)
[2024-09-09] MEDS: IPRATROPIUM 0.5MG/ALBUTEROL 2.5MG INH SOL UD 3ML (DUONEB) NEB ONE ×2 (01:58)
[2024-09-09 02:30] VITALS: O2SAT 93
[2024-09-09 02:35] VITALS: BP 114/56; O2SAT 93
== END 2024-09-09 03:05 | disposition home or self-care (01) ==
LOC: M ED 23:02
DX: J44.1 Chronic obstructive pulmonary disease with (acute) exacerbation (principal); E11.9 Type 2 diabetes mellitus without complications; Z79.82 Long term (current) use of aspirin; Z79.4 Long term (current) use of insulin; Z79.899 Other long term (current) drug therapy

== ENCOUNTER 2024-09-19 22:09 | Inpatient (IN) | payer OTHER ==
[~2024-09-19] VITALS: Ht 167.6 cm; Wt 43.2 kg
[2024-09-19 22:28] LABS: ABG BASE EXCESS -4.8 (-2.0-2.0); ABG HCO3 26.5 MMOL/L (22.0-26.0); ABG O2 SATURATION 99.4 % (95.0-99.0); ABG PARTIAL PRESSURE O2 252.9 mmHg (75.0-100.0); ABG STANDARD HCO3 20.6 MMOL/L. (22.0-26.0); ABG TOTAL CO2 29.1 MMOL/L (23.0-31.0)
[2024-09-19 22:31] LABS: ABG PARTIAL PRESSURE CO2 85.5 mmHg (35.0-45.0); ABG pH (ARTERIAL) 7.109 UNITS (7.350-7.450)
[2024-09-19 22:40] LABS: BASO # 0.1 10^3/uL (0.0-0.2); BASO % 0.2 % (0.0-1.0); EOS % 0.1 % (0.0-3.0); HEMATOCRIT 38.2 % (36.0-47.0); LYMPH # 3.5 10^3/uL (1.5-5.0); LYMPH % 16.5 % (24.0-44.0); MEAN CORPUSCULAR HEMOGLOBIN 33.1 pg (27.0-33.0); MEAN CORPUSCULAR HGB CONC 31.4 g/dl (32.0-36.5); MEAN CORPUSCULAR VOLUME 105.5 fl (80.0-96.0); MONO # 0.4 10^3/uL (0.0-0.8); MONO % 1.8 % (2.0-8.0); NEUTROPHILS # 16.8 10^3/uL (1.5-8.5); NEUTROPHILS % 80.3 % (36.0-66.0); PLATELET COUNT, AUTOMATED 337 10^3/uL (150-450); RED BLOOD COUNT 3.62 10^6/uL (4.00-5.40); WHITE BLOOD COUNT 20.9 10^3/uL (4.0-10.0)
[2024-09-19] MEDS: methylPREDNISolone 125MG 2ML VIAL IV ONE (22:49)
[2024-09-19 23:12] LABS: ALBUMIN 2.8 G/DL (3.2-5.2); ALKALINE PHOSPHATASE 174 U/L (35-104); ALT/SGPT 55 U/L (7.0-40); AST/SGOT 84 U/L (<34); BILIRUBIN,DIRECT 0.1 MG/DL (<0.4); BILIRUBIN,TOTAL 0.4 MG/DL (0.3-1.2); BLOOD UREA NITROGEN 29 MG/DL (9-23); CALCIUM LEVEL 8.8 MG/DL (8.3-10.6); CARBON DIOXIDE LEVEL 25 MMOL/L (20-31); CHLORIDE LEVEL 103 MMOL/L (98-107); CK-MB VALUE MASS 1.6 NG/ML (<3.6); CPK CREATINE PHOSPHOKINASE 38 U/L (34-145); CREATININE FOR GFR 1.19 MG/DL (0.55-1.30); GLOMERULAR FILTRATION RATE 47.6 (>39); GLUCOSE, FASTING 480 MG/DL (74-106); MB/CK RELATIVE INDEX 4.21 (< OR =4); POTASSIUM SERUM 6.3 MMOL/L (3.5-5.1); SODIUM LEVEL 133 MMOL/L (136-145); THYROID STIMULATING HORMONE 1.623 uIU/ML (0.55-4.78); TOTAL PROTEIN 6.2 G/DL (5.7-8.2)
[2024-09-19] MEDS ORDERED: PATIROMER SORBITEX CALCIUM 8.4 GM POWDER PACKET (VELTASSA) PO ONE (23:30)
[2024-09-20] VITALS (7 sets, daily range): BP systolic 101–132; BP diastolic 52–70; TEMP 97.2–98.1; O2SAT 89–100
[2024-09-20] MEDS: HumuLIN R (REGULAR) INSULIN (NovoLIN R) **100U/ML** PER UNIT IV ONE (00:12)
[2024-09-20] MEDS: CALCIUM GLUCONATE 1,000 MG in DEXTROSE 5% (D5W) MINI-BAG PLU 100 ML IV ONE (00:13)
[2024-09-20] MEDS: MAG SULF 1GM/100ML (MAG RUN) 1 GM in IV 1 EA IV ONE (00:14)
[2024-09-20 00:28] LABS: MAGNESIUM LEVEL 1.5 MG/DL (1.8-2.4)
[2024-09-20 00:30] LABS: DIGOXIN LEVEL < 0.1 NG/ML (0.8-2.0)
[2024-09-20 01:59] LABS: CALCIUM LEVEL 9.3 MG/DL (8.3-10.6); CREATININE FOR GFR 1.19 MG/DL (0.55-1.30); GLOMERULAR FILTRATION RATE 47.6 (>39); POTASSIUM SERUM 4.9 MMOL/L (3.5-5.1)
[2024-09-20 02:39] LABS: ABG BASE EXCESS -0.7 (-2.0-2.0); ABG HCO3 23.9 MMOL/L (22.0-26.0); ABG O2 SATURATION 97.3 % (95.0-99.0); ABG PARTIAL PRESSURE CO2 39.3 mmHg (35.0-45.0); ABG PARTIAL PRESSURE O2 96.7 mmHg (75.0-100.0); ABG STANDARD HCO3 23.9 MMOL/L. (22.0-26.0); ABG TOTAL CO2 25.1 MMOL/L (23.0-31.0); ABG pH (ARTERIAL) 7.402 UNITS (7.350-7.450)
[2024-09-20] MEDS ORDERED: ISOVUE-370 76% 100ML VIAL As Ordered ONE (02:42)
[2024-09-20] MEDS: FUROSEMIDE 40MG/4ML VIAL IV ONE (03:10)
[2024-09-20] MEDS: cefTRIAXone SOD 1 GM in DEXTROSE 5% (D5W) ADV/MINI-BAG 50 ML IV ONE (03:11)
[2024-09-20] MEDS ORDERED: MAALOX 30 ML SUSP *UDC PO PRN (04:00)
[2024-09-20] MEDS ORDERED: MOM 30ML SUSPENSION UDC PO PRN (04:00)
[2024-09-20] MEDS ORDERED: ACETAMINOPHEN 325 MG TAB PO PRN (04:00)
[2024-09-20] MEDS: AZITHROMYCIN INJ 500 MG, VIAL MATE ADAPTER 1 EACH in NS 250 ML IV ONE (04:30)
[2024-09-20] MEDS ORDERED: PRED10TA2 PO (04:39)
[2024-09-20] MEDS ORDERED: ENTR1TAB PO (04:39)
[2024-09-20] MEDS ORDERED: TORS5TAB2 PO (04:39)
[2024-09-20] MEDS ORDERED: VITATAB26 PO (04:39)
[2024-09-20] MEDS ORDERED: HOME MED LIST COMPLETE! XX SCH (04:40)
[2024-09-20 04:43] LABS: PROCALCITONIN 0.16 ng/ml
[2024-09-20] MEDS ORDERED: IPRATROPIUM 0.5MG/ALBUTEROL 2.5MG INH SOL UD 3ML (DUONEB) INH PRN (05:15)
[2024-09-20] MEDS: DOXYCYCLINE HYCLATE 100MG TABLET PO SCH (06:31)
[2024-09-20] MEDS ORDERED: GLUCOSE 4 GM CHEW PO PRN (07:00)
[2024-09-20] MEDS ORDERED: DEXTROSE 50% 50ML SYRINGE IV PRN (07:00)
[2024-09-20] MEDS ORDERED: GLUCAGON INJ 1MG VIAL SC PRN (07:00)
[2024-09-20] MEDS ORDERED: LEVALBUTEROL 1.25MG 0.5ML CONCENTRATE NEB INH SCH (08:00)
[2024-09-20] MEDS ORDERED: BUDESONIDE 0.5 MG/2 ML INHALATION SUSPENSION NEB SCH (08:00)
[2024-09-20 08:03] LABS: HEMOGLOBIN A1c 6.4 % (4.0-6.0)
[2024-09-20] MEDS: INSULIN LISPRO (NovoLOG) PER UNIT SC SCH ×2 (08:24→20:52)
[2024-09-20] MEDS: amLODIPine 5 MG TAB PO SCH (08:25)
[2024-09-20] MEDS: CARVedilol 6.25 MG TAB PO SCH (08:25)
[2024-09-20] MEDS: PANTOPRAZOLE 40MG TAB (PROTONIX) PO SCH (08:25)
[2024-09-20] MEDS: guaiFENesin ER TABLET 600 MG TAB PO SCH (08:25)
[2024-09-20] MEDS: methylPREDNISolone 40MG 1ML VIAL IV SCH (08:26)
[2024-09-20] MEDS: ISOSORBIDE MON. (IMDUR) 30MG XR TAB PO SCH (08:26)
[2024-09-20] MEDS: ASPIRIN 81MG ENTERIC TABLET PO SCH (08:26)
[2024-09-20] MEDS: APIXABAN 2.5 MG TAB (ELIQUIS) PO SCH (08:26)
[2024-09-20] MEDS: SYMBICORT 160/4.5MCG INHALER 6GM INH SCH (08:44)
[2024-09-20] MEDS: TIOTROPIUM INHALER/CAPSULE (SPIRIVA) INH SCH (08:44)
[2024-09-20] MEDS: LEVALBUTEROL 1.25MG 0.5ML CONCENTRATE NEB INH SCH (08:45)
[2024-09-20] MEDS ORDERED: LEVEMIR (INSULIN DETEMIR) 1 UNITS/0.01ML SC SCH ×2 (09:00)
[2024-09-20] MEDS: LEVEMIR (INSULIN DETEMIR) 1 UNITS/0.01ML SC SCH (09:00)
[2024-09-20] MEDS ORDERED: ENTRESTO 24-26MG TABLET (SACUBITRIL/VALSARTAN) PO SCH (09:00)
[2024-09-20] MEDS: CHLORTHALIDONE 12.5MG PER 1/2 TABLET PO SCH (11:06)
[2024-09-20] MEDS: cefTRIAXone SOD 2 GM in DEXTROSE 5% (D5W) ADV/MINI-BAG 50 ML IV SCH (14:52)
[2024-09-20] MEDS: ATORVASTATIN 20 MG TAB PO SCH (20:53)
[2024-09-20] MEDS: DULoxetine 30MG CAPSULE (CYMBALTA) PO SCH (20:54)
[2024-09-21] VITALS (8 sets, daily range): BP systolic 115–128; BP diastolic 58–60; TEMP 97.1–98.2; O2SAT 91–97
[2024-09-21 04:30] LABS: BASO % 0.1 % (0.0-1.0); EOS % 0.1 % (0.0-3.0); HEMATOCRIT 28.1 % (36.0-47.0); LYMPH # 1.4 10^3/uL (1.5-5.0); LYMPH % 9.3 % (24.0-44.0); MEAN CORPUSCULAR HGB CONC 32.4 g/dl (32.0-36.5); MEAN CORPUSCULAR VOLUME 98.9 fl (80.0-96.0); MONO # 0.6 10^3/uL (0.0-0.8); MONO % 4.1 % (2.0-8.0); NEUTROPHILS % 85.9 % (36.0-66.0); PLATELET COUNT, AUTOMATED 199 10^3/uL (150-450); RED BLOOD COUNT 2.84 10^6/uL (4.00-5.40); WHITE BLOOD COUNT 15.2 10^3/uL (4.0-10.0)
[2024-09-21 04:37] LABS: HEMOGLOBIN 9.1 g/dl (12.0-15.5)
[2024-09-21 04:56] LABS: CALCIUM LEVEL 9.3 MG/DL (8.3-10.6); CREATININE FOR GFR 1.38 MG/DL (0.55-1.30); GLOMERULAR FILTRATION RATE 40.1 (>39); POTASSIUM SERUM 4.3 MMOL/L (3.5-5.1)
[2024-09-21] MEDS: predniSONE 20 MG TAB PO SCH (08:14)
[2024-09-21 10:55] LABS: HEMATOCRIT 30.3 % (36.0-47.0); HEMOGLOBIN 9.9 g/dl (12.0-15.5); MEAN CORPUSCULAR HGB CONC 32.7 g/dl (32.0-36.5); PLATELET COUNT, AUTOMATED 209 10^3/uL (150-450); WHITE BLOOD COUNT 17.7 10^3/uL (4.0-10.0)
[2024-09-21] MEDS ORDERED: DOXY100T PO (12:35)
[2024-09-21] MEDS ORDERED: PRED20TA PO (12:35)
[2024-09-21] MEDS ORDERED: IPRA0.00 INH (12:38)
[2024-09-21] MEDS ORDERED: ALBU2.5V10 INH (12:38)
[2024-09-23 16:32] LABS: URINE STREP PNEUMONIAE ANTIGEN NOT DETECTED (NOT DETECT)
== END 2024-09-21 14:19 | disposition home health service (06) | DRG 189 ==
LOC: M ED 22:09 → M ED INP 09-20 03:58 → M ICU 09-20 05:55
PROVIDERS: ADMIT Student in an Organized Health Care Education/Training Program; ATTEND Student in an Organized Health Care Education/Training Program
DX: J96.02 Acute respiratory failure with hypercapnia (principal); E43 Unspecified severe protein-calorie malnutrition; I50.22 Chronic systolic (congestive) heart failure; K86.2 Cyst of pancreas; J44.1 Chronic obstructive pulmonary disease with (acute) exacerbation; J44.0 Chronic obstructive pulmonary disease with (acute) lower respiratory infection; Z68.1 Body mass index [BMI] 19.9 or less, adult; I11.0 Hypertensive heart disease with heart failure; J43.9 Emphysema, unspecified; E78.5 Hyperlipidemia, unspecified; I48.0 Paroxysmal atrial fibrillation; I25.10 Atherosclerotic heart disease of native coronary artery without angina pectoris; E11.43 Type 2 diabetes mellitus with diabetic autonomic (poly)neuropathy; K31.84 Gastroparesis; K64.8 Other hemorrhoids; K21.9 Gastro-esophageal reflux disease without esophagitis; J20.9 Acute bronchitis, unspecified; I35.1 Nonrheumatic aortic (valve) insufficiency; R00.0 Tachycardia, unspecified; I45.10 Unspecified right bundle-branch block; D35.02 Benign neoplasm of left adrenal gland; N28.1 Cyst of kidney, acquired; Z87.891 Personal history of nicotine dependence; E11.65 Type 2 diabetes mellitus with hyperglycemia; E87.5 Hyperkalemia; E83.42 Hypomagnesemia; R74.01 Elevation of levels of liver transaminase levels; Z79.82 Long term (current) use of aspirin; Z79.4 Long term (current) use of insulin; Z79.899 Other long term (current) drug therapy; Z79.01 Long term (current) use of anticoagulants

== ENCOUNTER → 2024-09-27 | Outpatient (REF) | payer OTHER ==
[~2024-09-27] MED LIST changes: +DOXY100T PO; +ENTR1TAB PO; +TORS5TAB2 PO; +VITATAB26 PO
== END ==
LOC: M LAB REF 12:02
PROVIDERS: ATTEND Internal Medicine
DX: I13.0 Hypertensive heart and chronic kidney disease with heart failure and stage 1 through stage 4 chronic kidney disease, or unspecified chronic kidney disease (principal)

== ENCOUNTER → 2024-09-30 | Outpatient (CLI) | payer OTHER ==
[~2024-09-30] MED LIST changes: +CEFD300C PO; +FURO20TA2 PO; +LEVO1TAB39 PO
[2024-09-30 18:30] LABS: ALBUMIN 2.8 G/DL (3.2-5.2); CALCIUM LEVEL 9.4 MG/DL (8.3-10.6); CREATININE FOR GFR 1.39 MG/DL (0.55-1.30); GLOMERULAR FILTRATION RATE 39.8 (>39); POTASSIUM SERUM 4.2 MMOL/L (3.5-5.1)
== END ==
LOC: M WUC 11:45
PROVIDERS: ATTEND Internal Medicine Cardiovascular Disease
DX: I50.23 Acute on chronic systolic (congestive) heart failure (principal)

== ENCOUNTER 2024-10-03 10:11 | Emergency (ER) | payer OTHER ==
[~2024-10-03] VITALS: Ht 162.6 cm; Wt 45.4 kg
[~2024-10-03 10:11] MED LIST changes: -CEFD300C PO; -FURO20TA2 PO; -LEVO1TAB39 PO
[2024-10-03 10:48] LABS: ABG BASE EXCESS -2.5 (-2.0-2.0); ABG O2 SATURATION 91.2 % (95.0-99.0); ABG PARTIAL PRESSURE CO2 48.3 mmHg (35.0-45.0); ABG PARTIAL PRESSURE O2 65.5 mmHg (75.0-100.0); ABG STANDARD HCO3 22.3 MMOL/L. (22.0-26.0); ABG TOTAL CO2 25.5 MMOL/L (23.0-31.0); ABG pH (ARTERIAL) 7.314 UNITS (7.350-7.450)
[2024-10-03 11:16] LABS: BASO % 0.1 % (0.0-1.0); EOS % 0.2 % (0.0-3.0); HEMATOCRIT 34.8 % (36.0-47.0); HEMOGLOBIN 10.9 g/dl (12.0-15.5); LYMPH # 0.8 10^3/uL (1.5-5.0); LYMPH % 4.3 % (24.0-44.0); MEAN CORPUSCULAR HEMOGLOBIN 33.2 pg (27.0-33.0); MEAN CORPUSCULAR HGB CONC 31.3 g/dl (32.0-36.5); MEAN CORPUSCULAR VOLUME 106.1 fl (80.0-96.0); MONO # 0.5 10^3/uL (0.0-0.8); MONO % 2.8 % (2.0-8.0); NEUTROPHILS # 16.3 10^3/uL (1.5-8.5); NEUTROPHILS % 91.8 % (36.0-66.0); PLATELET COUNT, AUTOMATED 138 10^3/uL (150-450); RED BLOOD COUNT 3.28 10^6/uL (4.00-5.40); WHITE BLOOD COUNT 17.8 10^3/uL (4.0-10.0)
[2024-10-03] MEDS ORDERED: ISOVUE-370 76% 100ML VIAL As Ordered ONE (11:42)
[2024-10-03] MEDS: LevoFLOXacin IV 750 MG in IV 1 EA IV ONE (11:49)
[2024-10-03 11:56] LABS: ALBUMIN 2.5 G/DL (3.2-5.2); ALKALINE PHOSPHATASE 102 U/L (35-104); ALT/SGPT 69 U/L (7.0-40); AST/SGOT 124 U/L (<34); BILIRUBIN,DIRECT < 0.1 MG/DL (<0.4); BILIRUBIN,TOTAL 0.3 MG/DL (0.3-1.2); BLOOD UREA NITROGEN 44 MG/DL (9-23); CALCIUM LEVEL 8.6 MG/DL (8.3-10.6); CARBON DIOXIDE LEVEL 27 MMOL/L (20-31); CHLORIDE LEVEL 108 MMOL/L (98-107); CREATININE FOR GFR 1.24 MG/DL (0.55-1.30); GLOMERULAR FILTRATION RATE 45.4 (>39); GLUCOSE, FASTING 296 MG/DL (74-106); POTASSIUM SERUM 4.9 MMOL/L (3.5-5.1); SODIUM LEVEL 141 MMOL/L (136-145); TOTAL PROTEIN 5.3 G/DL (5.7-8.2)
[2024-10-03 11:59] LABS: THYROXINE (T4) 8.1 UG/DL (4.5-10.9)
[2024-10-03 12:00] LABS: THYROID STIMULATING HORMONE 1.087 uIU/ML (0.55-4.78)
[2024-10-03 12:05] LABS: PROCALCITONIN 0.11 ng/ml
[2024-10-03 12:30] LABS: CPK CREATINE PHOSPHOKINASE 66 U/L (34-145)
[2024-10-03 13:10] LABS: MB/CK RELATIVE INDEX 5.35 (< OR =4)
[2024-10-03] MEDS: FUROSEMIDE 20MG/2ML VIAL IV ONE (13:34)
[2024-10-03] MEDS: CEFEPIME HCL 2 GM in DEXTROSE 5% (D5W) ADV/MINI-BAG 50 ML IV ONE (13:35)
[2024-10-03 14:52] LABS: CK-MB VALUE MASS 4.1 NG/ML (<3.6)
[2024-10-03 14:53] LABS: MB/CK RELATIVE INDEX 5.39 (< OR =4)
[2024-10-03] MEDS ORDERED: ALBU2.5V10 INH (15:00)
[2024-10-03] MEDS ORDERED: PRED20TA PO ×2 (15:00→18:41)
[2024-10-03] MEDS ORDERED: FURO20TA2 PO (15:01)
[2024-10-03] MEDS ORDERED: LEVO1TAB39 PO (15:01)
[2024-10-03] MEDS ORDERED: HOME MED LIST COMPLETE! XX SCH (15:05)
[2024-10-03] MEDS: IPRATROPIUM 0.5MG/ALBUTEROL 2.5MG INH SOL UD 3ML (DUONEB) NEB ONE (15:42)
[2024-10-03] MEDS ORDERED: CEFD300C PO (18:42)
[2024-10-03 19:00] VITALS: O2SAT 99
[2024-10-03 19:02] VITALS: BP 106/56; TEMP 99.6
== END 2024-10-03 19:10 | disposition home or self-care (01) ==
LOC: M ED 10:11 → EDBD 10:11 → M ED 19:10
DX: J44.1 Chronic obstructive pulmonary disease with (acute) exacerbation (principal); I50.9 Heart failure, unspecified; R79.89 Other specified abnormal findings of blood chemistry; J18.9 Pneumonia, unspecified organism; I25.2 Old myocardial infarction; Z87.01 Personal history of pneumonia (recurrent); Z87.891 Personal history of nicotine dependence; Z79.01 Long term (current) use of anticoagulants; Z79.4 Long term (current) use of insulin; Z79.899 Other long term (current) drug therapy
CPT/HCPCS: 36600; 71045; 71275; 80047; 80048; 80076; 82550; 82553; 82803; 83880; 84145; 84436; 84443; 84484; 85025; 87040; 87486; 87581; 87633; 87798; 93005; 93041; 93306; 94640; 94760; 96374; 96375; 99285; J0692; J1940; J1956; Q9967

== ENCOUNTER → 2024-10-19 | Outpatient (CLI) | payer OTHER ==
[~2024-10-19] MED LIST changes: +CEFD300C PO; +FURO20TA2 PO; +LEVO1TAB39 PO
[2024-10-19 17:10] LABS: ALBUMIN 3.1 G/DL (3.2-5.2); CALCIUM LEVEL 9.4 MG/DL (8.3-10.6); CREATININE FOR GFR 1.1 MG/DL (0.55-1.30); GLOMERULAR FILTRATION RATE 52.1 (>39); PHOSPHORUS LEVEL 4.2 MG/DL (2.4-5.1); POTASSIUM SERUM 3.8 MMOL/L (3.5-5.1)
[2024-10-24 13:56] LABS: MAGNESIUM LEVEL 1.3 MG/DL (1.8-2.4)
== END ==
LOC: M WUC 12:14
PROVIDERS: ATTEND Internal Medicine Cardiovascular Disease
DX: I50.23 Acute on chronic systolic (congestive) heart failure (principal)

== ENCOUNTER → 2024-11-07 | Outpatient (REF) | payer OTHER | LOC: M LABWUC 13:24 | PROVIDERS: ATTEND Internal Medicine Cardiovascular Disease | DX: E83.42 Hypomagnesemia (principal) ==

== ENCOUNTER → 2024-12-05 | Outpatient (CLI) | payer OTHER ==
[2024-12-05 17:31] LABS: BASO % 0.3 % (0.0-1.0); EOS # 0.1 10^3/uL (0.0-0.5); EOS % 1.5 % (0.0-3.0); HEMATOCRIT 33.5 % (36.0-47.0); HEMOGLOBIN 10.9 g/dl (12.0-15.5); LYMPH # 1.7 10^3/uL (1.5-5.0); LYMPH % 23.4 % (24.0-44.0); MEAN CORPUSCULAR HEMOGLOBIN 32.7 pg (27.0-33.0); MEAN CORPUSCULAR HGB CONC 32.5 g/dl (32.0-36.5); MEAN CORPUSCULAR VOLUME 100.6 fl (80.0-96.0); MONO # 0.5 10^3/uL (0.0-0.8); MONO % 6.7 % (2.0-8.0); NEUTROPHILS # 5.1 10^3/uL (1.5-8.5); NEUTROPHILS % 67.8 % (36.0-66.0); PLATELET COUNT, AUTOMATED 183 10^3/uL (150-450); RED BLOOD COUNT 3.33 10^6/uL (4.00-5.40); WHITE BLOOD COUNT 7.5 10^3/uL (4.0-10.0)
[2024-12-05 17:53] LABS: ALBUMIN 3.4 G/DL (3.2-5.2); CALCIUM LEVEL 9.2 MG/DL (8.3-10.6); CREATININE FOR GFR 1.2 MG/DL (0.55-1.30); MAGNESIUM LEVEL 1.9 MG/DL (1.8-2.4); PHOSPHORUS LEVEL 4.3 MG/DL (2.4-5.1); POTASSIUM SERUM 4.7 MMOL/L (3.5-5.1)
== END ==
LOC: M WUC 12:02
PROVIDERS: ATTEND Internal Medicine Cardiovascular Disease
DX: I50.23 Acute on chronic systolic (congestive) heart failure (principal); I48.0 Paroxysmal atrial fibrillation; I35.1 Nonrheumatic aortic (valve) insufficiency; E83.42 Hypomagnesemia

== ENCOUNTER 2024-12-07 21:52 | Inpatient (IN) | payer MEDICARE, OTHER ==
[~2024-12-07] VITALS: Ht 162.6 cm; Wt 48.0 kg
[2024-12-07 22:19] LABS: ABG BASE EXCESS -5.5 (-2.0-2.0); ABG HCO3 23.1 MMOL/L (22.0-26.0); ABG TOTAL CO2 24.9 MMOL/L (23.0-31.0)
[2024-12-07 22:20] LABS: ABG pH (ARTERIAL) 7.211 UNITS (7.350-7.450)
[2024-12-07 22:21] LABS: HEMATOCRIT 38.6 % (36.0-47.0); HEMOGLOBIN 12.5 g/dl (12.0-15.5); MEAN CORPUSCULAR HEMOGLOBIN 32.7 pg (27.0-33.0); MEAN CORPUSCULAR HGB CONC 32.4 g/dl (32.0-36.5); PLATELET COUNT, AUTOMATED 343 10^3/uL (150-450); RED BLOOD COUNT 3.82 10^6/uL (4.00-5.40)
[2024-12-07] MEDS: IPRATROPIUM 0.5MG/ALBUTEROL 2.5MG INH SOL UD 3ML (DUONEB) NEB PRN (22:28)
[2024-12-07 22:43] LABS: ATYPICAL LYMPH 2 % (0-5); EOSINOPHILS 2 % (0-3); LYMPHOCYTES 45 % (16-44); METAMYELOCYTES 1 % (0-0); MONOCYTES 9 % (0-5); NEUTROPHILS 41 % (28-66)
[2024-12-07 22:44] LABS: PLATELET ESTIMATE NORMAL (NORMAL)
[2024-12-07 22:50] LABS: ALBUMIN 3.3 G/DL (3.2-5.2); BILIRUBIN,DIRECT 0.2 MG/DL (<0.4); BILIRUBIN,TOTAL 0.5 MG/DL (0.3-1.2); CALCIUM LEVEL 9.6 MG/DL (8.3-10.6); CK-MB VALUE MASS 1.4 NG/ML (<3.6); CREATININE FOR GFR 1.22 MG/DL (0.55-1.30); GLOMERULAR FILTRATION RATE 46.1 (>39); MB/CK RELATIVE INDEX 2.85 (< OR =4); POTASSIUM SERUM 5.3 MMOL/L (3.5-5.1); TOTAL PROTEIN 6.8 G/DL (5.7-8.2)
[2024-12-07] MEDS: NS (Normal Saline) 0.9% 1,370 ML in IV 1 EA IV ONE (22:56)
[2024-12-07] MEDS: PIPERACILLIN/TAZOBACTAM SOD 4.5 GM in DEXTROSE 5% (D5W) ADV/MINI-BAG 50 ML IV ONE (22:57)
[2024-12-07] MEDS ORDERED: ISOVUE-370 76% 100ML VIAL As Ordered ONE (22:58)
[2024-12-08] VITALS (8 sets, daily range): BP systolic 106–155; BP diastolic 51–60; TEMP 96.6–100.7; O2SAT 94–100
[2024-12-08 00:48] LABS: ABG BASE EXCESS -2.1 (-2.0-2.0); ABG HCO3 23.9 MMOL/L (22.0-26.0); ABG O2 SATURATION 97.3 % (95.0-99.0); ABG PARTIAL PRESSURE CO2 46.1 mmHg (35.0-45.0); ABG PARTIAL PRESSURE O2 111.8 mmHg (75.0-100.0); ABG STANDARD HCO3 22.7 MMOL/L. (22.0-26.0); ABG TOTAL CO2 25.3 MMOL/L (23.0-31.0); ABG pH (ARTERIAL) 7.332 UNITS (7.350-7.450)
[2024-12-08 02:22] LABS: CK-MB VALUE MASS 2.2 NG/ML (<3.6)
[2024-12-08] MEDS ORDERED: SACU1TAB PO (02:31)
[2024-12-08] MEDS ORDERED: DEXTROSE 50% 50ML SYRINGE IV PRN (02:50)
[2024-12-08] MEDS ORDERED: GLUCOSE 4 GM CHEW PO PRN (02:50)
[2024-12-08] MEDS ORDERED: GLUCAGON INJ 1MG VIAL SC PRN (02:50)
[2024-12-08] MEDS ORDERED: MOM 30ML SUSPENSION UDC PO PRN (03:00)
[2024-12-08] MEDS ORDERED: ALBUTEROL SULFATE 2.5MG/0.5ML INH NEB SOLN NEB PRN (03:00)
[2024-12-08 03:12] LABS: MAGNESIUM LEVEL 1.8 MG/DL (1.8-2.4)
[2024-12-08] MEDS: CALCIUM GLUCONATE 1,000 MG in DEXTROSE 5% (D5W) MINI-BAG PLU 100 ML IV ONE (03:13)
[2024-12-08] MEDS: HumuLIN R (REGULAR) INSULIN (NovoLIN R) **100U/ML** PER UNIT IV STA (03:13)
[2024-12-08] MEDS: SOD POLYSTYRENE SULFONATE SUSP 15GM 60ML UD PO ONE (03:13)
[2024-12-08] MEDS: DEXTROSE 50% 50ML SYRINGE IV STA (03:13)
[2024-12-08] MEDS: ALBUTEROL SULFATE 2.5MG/0.5ML INH NEB SOLN NEB ONE (04:29)
[2024-12-08] MEDS: methylPREDNISolone 125MG 2ML VIAL IV SCH (04:57)
[2024-12-08] MEDS: DOXYCYCLINE HYCLATE 100 MG in DEXTROSE 5% (D5W) MINI-BAG PLU 100 ML IV SCH (04:57)
[2024-12-08] MEDS: SYMBICORT 160/4.5MCG INHALER 6GM INH SCH (07:01)
[2024-12-08] MEDS: IPRATROPIUM 0.5MG/ALBUTEROL 2.5MG INH SOL UD 3ML (DUONEB) NEB SCH ×2 (07:01→12:00)
[2024-12-08 07:26] LABS: HEMATOCRIT 33.5 % (36.0-47.0); HEMOGLOBIN 10.8 g/dl (12.0-15.5); MEAN CORPUSCULAR HGB CONC 32.2 g/dl (32.0-36.5); MEAN CORPUSCULAR VOLUME 99.4 fl (80.0-96.0); RED BLOOD COUNT 3.37 10^6/uL (4.00-5.40); WHITE BLOOD COUNT 5.3 10^3/uL (4.0-10.0)
[2024-12-08 07:39] LABS: PLATELET COUNT, AUTOMATED 172 10^3/uL (150-450)
[2024-12-08 08:12] LABS: ALBUMIN 3.1 G/DL (3.2-5.2); BILIRUBIN,TOTAL 0.5 MG/DL (0.3-1.2); CALCIUM LEVEL 9.1 MG/DL (8.3-10.6); CREATININE FOR GFR 1.26 MG/DL (0.55-1.30); GLOMERULAR FILTRATION RATE 44.4 (>39); POTASSIUM SERUM 4.7 MMOL/L (3.5-5.1); TOTAL PROTEIN 6.2 G/DL (5.7-8.2)
[2024-12-08] MEDS: INSULIN LISPRO (NovoLOG) PER UNIT SC SCH ×2 (08:20→21:18)
[2024-12-08] MEDS: PANTOPRAZOLE 40MG VIAL IV SCH (08:20)
[2024-12-08] MEDS: DOCUSATE SODIUM 100MG CAPSULE PO SCH (08:20)
[2024-12-08] MEDS ORDERED: SPIR12.9 INH (09:36)
[2024-12-08] MEDS ORDERED: HOME MED LIST COMPLETE! XX SCH (09:40)
[2024-12-08] MEDS: FUROSEMIDE 10MG PER 1/2 TABLET PO SCH (11:10)
[2024-12-08] MEDS: methylPREDNISolone 40MG 1ML VIAL IV SCH (17:47)
[2024-12-08] MEDS: HEPARIN SOD (PORCINE) 5000UNITS/ML 1ML VIAL/SYRINGE SC SCH (17:47)
[2024-12-08] MEDS: PANTOPRAZOLE 40MG VIAL IV ONE (18:44)
[2024-12-08 19:22] LABS: CK-MB VALUE MASS 1.7 NG/ML (<3.6)
[2024-12-08 23:02] LABS: CK-MB VALUE MASS 1.4 NG/ML (<3.6); MB/CK RELATIVE INDEX 3.58 (< OR =4)
[2024-12-09 04:13] VITALS: BP 104/55; TEMP 97.8; O2SAT 93
[2024-12-09 08:53] VITALS: BP_SYST 108; BP_SYST 109; BP_DIAS 55; BP_DIAS 70; TEMP 98.5; TEMP 98.8; O2SAT 92; O2SAT 98
[2024-12-09] MEDS: PANTOPRAZOLE 40MG TAB (PROTONIX) PO SCH (11:08)
[2024-12-09] MEDS: CALCIUM CARBONATE 500 MG CHEW U/D PO SCH (11:08)
[2024-12-09 12:01] VITALS: BP 125/58; TEMP 98.6; O2SAT 93
[2024-12-09 14:30] VITALS: BP 133/64; TEMP 98.3; O2SAT 94
[2024-12-09 19:29] VITALS: BP 109/56; TEMP 98.3; O2SAT 97
[2024-12-09] MEDS: predniSONE 20 MG TAB PO SCH (20:29)
[2024-12-09] MEDS: DOXYCYCLINE HYCLATE 100MG TABLET PO SCH (20:29)
[2024-12-09 21:00] VITALS: BP 109/56; PULSE 86; O2SAT 97
[2024-12-10] MEDS: TRIAMCINOLONE ACET 0.1% CREAM 15GM TOP SCH
[2024-12-10 00:10] VITALS: BP 124/56; TEMP 97.5
[2024-12-10 03:02] VITALS: BP 159/70; TEMP 98.1; O2SAT 93
[2024-12-10 07:32] VITALS: BP 169/74; TEMP 97.6; O2SAT 93
[2024-12-10] MEDS ORDERED: TRIA1CR80 TOP (08:06)
[2024-12-10] MEDS ORDERED: DOXY100T PO (08:06)
[2024-12-10] MEDS: LEVEMIR (INSULIN DETEMIR) 1 UNITS/0.01ML SC SCH (09:07)
[2024-12-10 09:11] VITALS: BP 177/74
[2024-12-10] MEDS: CARVedilol 6.25 MG TAB PO SCH (09:11)
[2024-12-10] MEDS: amLODIPine 5 MG TAB PO SCH (09:11)
[2024-12-10] MEDS: PANTOPRAZOLE 40MG TAB (PROTONIX) PO SCH (09:12)
[2024-12-10] MEDS ORDERED: DULoxetine 30MG CAPSULE (CYMBALTA) PO SCH (21:00)
[2024-12-10] MEDS ORDERED: ATORVASTATIN 20 MG TAB PO SCH (21:00)
== END 2024-12-10 13:39 | disposition home or self-care (01) | DRG 189 ==
LOC: M ED 21:52 → M ED INP 12-08 02:56 → M ICU 12-08 05:30 → M PCU 12-08 14:27
PROVIDERS: ADMIT Internal Medicine Pulmonary Disease; ATTEND Internal Medicine Pulmonary Disease
DX: J96.01 Acute respiratory failure with hypoxia (principal); E43 Unspecified severe protein-calorie malnutrition; J44.1 Chronic obstructive pulmonary disease with (acute) exacerbation; I50.42 Chronic combined systolic (congestive) and diastolic (congestive) heart failure; I13.0 Hypertensive heart and chronic kidney disease with heart failure and stage 1 through stage 4 chronic kidney disease, or unspecified chronic kidney disease; K86.2 Cyst of pancreas; Z68.1 Body mass index [BMI] 19.9 or less, adult; R07.89 Other chest pain; N18.30 Chronic kidney disease, stage 3 unspecified; E11.22 Type 2 diabetes mellitus with diabetic chronic kidney disease; E78.5 Hyperlipidemia, unspecified; I48.0 Paroxysmal atrial fibrillation; E87.5 Hyperkalemia; I35.1 Nonrheumatic aortic (valve) insufficiency; I25.10 Atherosclerotic heart disease of native coronary artery without angina pectoris; Z95.5 Presence of coronary angioplasty implant and graft; E11.43 Type 2 diabetes mellitus with diabetic autonomic (poly)neuropathy; K31.84 Gastroparesis; K21.9 Gastro-esophageal reflux disease without esophagitis; I45.10 Unspecified right bundle-branch block; D35.00 Benign neoplasm of unspecified adrenal gland; N28.1 Cyst of kidney, acquired; Z90.79 Acquired absence of other genital organ(s); Z79.899 Other long term (current) drug therapy

== ENCOUNTER 2024-12-11 09:04 | Inpatient (IN) | payer MEDICARE ==
[~2024-12-11] VITALS: Ht 162.6 cm; Wt 44.7 kg
[~2024-12-11 09:04] MED LIST changes: +SACU1TAB PO; +TRIA1CR80 TOP
[2024-12-11 09:36] LABS: ABG BASE EXCESS -6.6 (-2.0-2.0); ABG O2 SATURATION 94.5 % (95.0-99.0); ABG PARTIAL PRESSURE O2 99.8 mmHg (75.0-100.0); ABG TOTAL CO2 27.6 MMOL/L (23.0-31.0)
[2024-12-11 09:37] LABS: ABG PARTIAL PRESSURE CO2 85.9 mmHg (35.0-45.0); ABG pH (ARTERIAL) 7.082 UNITS (7.350-7.450)
[2024-12-11 09:40] LABS: BASO # 0.1 10^3/uL (0.0-0.2); BASO % 0.3 % (0.0-1.0); HEMATOCRIT 39.8 % (36.0-47.0); HEMOGLOBIN 12.5 g/dl (12.0-15.5); LYMPH # 3.4 10^3/uL (1.5-5.0); LYMPH % 14.4 % (24.0-44.0); MEAN CORPUSCULAR HEMOGLOBIN 32.6 pg (27.0-33.0); MEAN CORPUSCULAR HGB CONC 31.4 g/dl (32.0-36.5); MEAN CORPUSCULAR VOLUME 103.9 fl (80.0-96.0); MONO % 4.3 % (2.0-8.0); NEUTROPHILS # 18.3 10^3/uL (1.5-8.5); NEUTROPHILS % 77.2 % (36.0-66.0); PLATELET COUNT, AUTOMATED 368 10^3/uL (150-450); RED BLOOD COUNT 3.83 10^6/uL (4.00-5.40); WHITE BLOOD COUNT 23.7 10^3/uL (4.0-10.0)
[2024-12-11 09:51] LABS: INR 0.95; PROTHROMBIN TIME 12.9 SECONDS (12.5-14.5)
[2024-12-11] MEDS: IPRATROPIUM 0.5MG/ALBUTEROL 2.5MG INH SOL UD 3ML (DUONEB) NEB PRN (10:04)
[2024-12-11 10:09] LABS: THYROID STIMULATING HORMONE 0.751 uIU/ML (0.55-4.78)
[2024-12-11 10:15] LABS: ALBUMIN 3.3 G/DL (3.2-5.2); ALKALINE PHOSPHATASE 122 U/L (35-104); ALT/SGPT 51 U/L (7.0-40); AST/SGOT 64 U/L (<34); BILIRUBIN,DIRECT < 0.1 MG/DL (<0.4); BILIRUBIN,TOTAL 0.3 MG/DL (0.3-1.2); BLOOD UREA NITROGEN 53 MG/DL (9-23); CALCIUM LEVEL 9.3 MG/DL (8.3-10.6); CARBON DIOXIDE LEVEL 28 MMOL/L (20-31); CHLORIDE LEVEL 104 MMOL/L (98-107); GLOMERULAR FILTRATION RATE 42.9 (>39); GLUCOSE, FASTING 459 MG/DL (74-106); POTASSIUM SERUM 6.1 MMOL/L (3.5-5.1); SODIUM LEVEL 141 MMOL/L (136-145); TOTAL PROTEIN 6.4 G/DL (5.7-8.2)
[2024-12-11 10:21] LABS: ABG BASE EXCESS -3.8 (-2.0-2.0); ABG HCO3 25.3 MMOL/L (22.0-26.0); ABG O2 SATURATION 99.1 % (95.0-99.0); ABG PARTIAL PRESSURE O2 170.6 mmHg (75.0-100.0); ABG STANDARD HCO3 21.4 MMOL/L. (22.0-26.0); ABG TOTAL CO2 27.4 MMOL/L (23.0-31.0)
[2024-12-11 10:22] LABS: ABG pH (ARTERIAL) 7.202 UNITS (7.350-7.450)
[2024-12-11 12:03] LABS: POTASSIUM SERUM 5.5 MMOL/L (3.5-5.1)
[2024-12-11 12:23] LABS: PROCALCITONIN 0.12 ng/ml
[2024-12-11 12:34] LABS: ABG BASE EXCESS 0.2 (-2.0-2.0); ABG HCO3 25.9 MMOL/L (22.0-26.0); ABG O2 SATURATION 98.7 % (95.0-99.0); ABG PARTIAL PRESSURE CO2 46.4 mmHg (35.0-45.0); ABG PARTIAL PRESSURE O2 133.3 mmHg (75.0-100.0); ABG STANDARD HCO3 24.7 MMOL/L. (22.0-26.0); ABG TOTAL CO2 27.3 MMOL/L (23.0-31.0); ABG pH (ARTERIAL) 7.364 UNITS (7.350-7.450)
[2024-12-11] MEDS ORDERED: GLUCOSE 4 GM CHEW PO PRN (13:55)
[2024-12-11] MEDS ORDERED: DEXTROSE 50% 50ML SYRINGE IV PRN (13:55)
[2024-12-11] MEDS ORDERED: GLUCAGON INJ 1MG VIAL SC PRN (13:55)
[2024-12-11] MEDS: IPRATROPIUM 0.5MG/ALBUTEROL 2.5MG INH SOL UD 3ML (DUONEB) NEB SCH (14:00)
[2024-12-11] MEDS ORDERED: HOME MED LIST COMPLETE! XX SCH (14:25)
[2024-12-11] MEDS: LEVEMIR (INSULIN DETEMIR) 1 UNITS/0.01ML SC ONE (14:50)
[2024-12-11] MEDS: FUROSEMIDE 40MG/4ML VIAL IV ONE (14:50)
[2024-12-11 15:38] VITALS: BP 142/71; TEMP 98.2; O2SAT 91
[2024-12-11] MEDS ORDERED: INSULIN LISPRO (NovoLOG) PER UNIT SC SCH ×2 (17:30→21:00)
[2024-12-11] MEDS: DOXYCYCLINE HYCLATE 100MG TABLET PO ONE (18:07)
[2024-12-11] MEDS: methylPREDNISolone 40MG 1ML VIAL IV SCH (18:07)
[2024-12-11] MEDS: INSULIN LISPRO (NovoLOG) PER UNIT SC SCH ×2 (18:07→20:33)
[2024-12-11 20:28] VITALS: BP 99/56; TEMP 97.3; O2SAT 94
[2024-12-11] MEDS: PANTOPRAZOLE 40MG TAB (PROTONIX) PO SCH (20:32)
[2024-12-11] MEDS: ATORVASTATIN 20 MG TAB PO SCH (20:32)
[2024-12-11] MEDS: LEVEMIR (INSULIN DETEMIR) 1 UNITS/0.01ML SC SCH (20:33)
[2024-12-11] MEDS: CARVedilol 6.25 MG TAB PO SCH (21:00)
[2024-12-12 00:20] VITALS: BP 127/59; TEMP 97.2; O2SAT 95
[2024-12-12 03:54] VITALS: BP 124/60; TEMP 97.5; O2SAT 94
[2024-12-12 06:18] LABS: HEMATOCRIT 28.9 % (36.0-47.0); LYMPH # 1.2 10^3/uL (1.5-5.0); LYMPH % 13.7 % (24.0-44.0); MEAN CORPUSCULAR HGB CONC 33.2 g/dl (32.0-36.5); MEAN CORPUSCULAR VOLUME 99.3 fl (80.0-96.0); MONO # 0.7 10^3/uL (0.0-0.8); MONO % 7.9 % (2.0-8.0); NEUTROPHILS # 6.8 10^3/uL (1.5-8.5); NEUTROPHILS % 76.9 % (36.0-66.0); RED BLOOD COUNT 2.91 10^6/uL (4.00-5.40); WHITE BLOOD COUNT 8.9 10^3/uL (4.0-10.0)
[2024-12-12 06:27] LABS: HEMOGLOBIN 9.6 g/dl (12.0-15.5); PLATELET COUNT, AUTOMATED 161 10^3/uL (150-450)
[2024-12-12 06:37] LABS: CALCIUM LEVEL 9.1 MG/DL (8.3-10.6); CREATININE FOR GFR 1.48 MG/DL (0.55-1.30); GLOMERULAR FILTRATION RATE 36.9 (>39)
[2024-12-12 08:20] VITALS: BP 140/63; TEMP 97.6; O2SAT 88
[2024-12-12] MEDS: FUROSEMIDE 40MG/4ML VIAL IV SCH (08:55)
[2024-12-12] MEDS: DOXYCYCLINE HYCLATE 100MG TABLET PO SCH (08:55)
[2024-12-12] MEDS: ENOXAPARIN 30MG/0.3ML SYRINGE (J1650 PER 10MG) SC SCH (09:16)
[2024-12-12 12:44] VITALS: BP 144/65
[2024-12-12] MEDS: ENTRESTO 49-51MG TABLET (SACUBITRIL/VALSARTAN) PO SCH (15:28)
[2024-12-12 15:59] VITALS: BP 130/68; TEMP 97.5; O2SAT 92
[2024-12-12] MEDS: methylPREDNISolone 40MG 1ML VIAL IV SCH (17:25)
[2024-12-12 19:22] VITALS: BP 124/64; TEMP 97.8; O2SAT 93
[2024-12-12] MEDS: IPRATROPIUM 0.02% SOLN 0.5MG 2.5ML NEB INH SCH (19:49)
[2024-12-12] MEDS: BUDESONIDE 0.5 MG/2 ML INHALATION SUSPENSION NEB SCH (19:49)
[2024-12-12] MEDS: SYMBICORT 80/4.5MCG INHALER 6GM INH SCH (19:50)
[2024-12-12] MEDS: DULoxetine 30MG CAPSULE (CYMBALTA) PO SCH (20:35)
[2024-12-13 03:26] VITALS: BP 137/65; TEMP 97.6; O2SAT 90
[2024-12-13 06:03] LABS: BASO % 0.2 % (0.0-1.0); EOS % 0.1 % (0.0-3.0); HEMATOCRIT 30.7 % (36.0-47.0); LYMPH # 1.5 10^3/uL (1.5-5.0); LYMPH % 15.6 % (24.0-44.0); MEAN CORPUSCULAR HEMOGLOBIN 32.3 pg (27.0-33.0); MEAN CORPUSCULAR HGB CONC 32.6 g/dl (32.0-36.5); MONO # 0.7 10^3/uL (0.0-0.8); MONO % 7.8 % (2.0-8.0); NEUTROPHILS # 6.9 10^3/uL (1.5-8.5); NEUTROPHILS % 74.9 % (36.0-66.0); PLATELET COUNT, AUTOMATED 173 10^3/uL (150-450); WHITE BLOOD COUNT 9.3 10^3/uL (4.0-10.0)
[2024-12-13 06:20] LABS: CALCIUM LEVEL 8.8 MG/DL (8.3-10.6); CREATININE FOR GFR 1.33 MG/DL (0.55-1.30); GLOMERULAR FILTRATION RATE 41.7 (>39); POTASSIUM SERUM 4.6 MMOL/L (3.5-5.1)
[2024-12-13] MEDS: TIOTROPIUM INHALER/CAPSULE (SPIRIVA) INH SCH (07:15)
[2024-12-13] MEDS: LEVALBUTEROL 1.25MG 0.5ML CONCENTRATE NEB INH PRN (07:16)
[2024-12-13 07:48] VITALS: BP 148/68; TEMP 97.9; O2SAT 95
[2024-12-13] MEDS: CARVedilol 3.125 MG TAB PO SCH (08:37)
[2024-12-13] MEDS: predniSONE 20 MG TAB PO SCH (08:37)
[2024-12-13 11:24] VITALS: BP 141/59; TEMP 99.1; O2SAT 91
[2024-12-13] MEDS ORDERED: LevoFLOXacin 500 MG TABLET PO ONE (13:20)
[2024-12-13 16:00] VITALS: BP 141/68; TEMP 97.2; O2SAT 93
[2024-12-13] MEDS: LevoFLOXacin 750 MG TABLET PO SCH (18:12)
[2024-12-13 19:10] VITALS: BP 138/61; TEMP 98; O2SAT 94
[2024-12-14 03:10] VITALS: BP 109/52; TEMP 98.8; O2SAT 93
[2024-12-14 05:40] LABS: ABG BASE EXCESS 0.4 (-2.0-2.0); ABG HCO3 25.9 MMOL/L (22.0-26.0); ABG O2 SATURATION 95.8 % (95.0-99.0); ABG PARTIAL PRESSURE CO2 45.2 mmHg (35.0-45.0); ABG PARTIAL PRESSURE O2 83.2 mmHg (75.0-100.0); ABG STANDARD HCO3 24.8 MMOL/L. (22.0-26.0); ABG TOTAL CO2 27.3 MMOL/L (23.0-31.0); ABG pH (ARTERIAL) 7.376 UNITS (7.350-7.450)
[2024-12-14] MEDS ORDERED: LevoFLOXacin 250 MG TABLET PO SCH (06:00)
[2024-12-14 06:21] LABS: BASO % 0.3 % (0.0-1.0); EOS % 0.4 % (0.0-3.0); HEMATOCRIT 36.6 % (36.0-47.0); LYMPH # 1.5 10^3/uL (1.5-5.0); LYMPH % 13.4 % (24.0-44.0); MEAN CORPUSCULAR HEMOGLOBIN 32.7 pg (27.0-33.0); MEAN CORPUSCULAR HGB CONC 32.8 g/dl (32.0-36.5); MEAN CORPUSCULAR VOLUME 99.7 fl (80.0-96.0); MONO % 8.9 % (2.0-8.0); NEUTROPHILS # 8.1 10^3/uL (1.5-8.5); NEUTROPHILS % 74.5 % (36.0-66.0); PLATELET COUNT, AUTOMATED 203 10^3/uL (150-450); RED BLOOD COUNT 3.67 10^6/uL (4.00-5.40); WHITE BLOOD COUNT 10.8 10^3/uL (4.0-10.0)
[2024-12-14 06:43] LABS: CALCIUM LEVEL 8.7 MG/DL (8.3-10.6); CREATININE FOR GFR 1.36 MG/DL (0.55-1.30); GLOMERULAR FILTRATION RATE 40.7 (>39); POTASSIUM SERUM 3.9 MMOL/L (3.5-5.1)
[2024-12-14 07:33] VITALS: BP 129/83; TEMP 98.8; O2SAT 94
[2024-12-14 09:32] VITALS: BP 129/83
[2024-12-14] MEDS: TORSEMIDE 10 MG TABLET PO SCH (09:32)
[2024-12-14] MEDS ORDERED: PRED10TA2 PO (13:02)
[2024-12-14] MEDS ORDERED: CARV3.12 PO (13:02)
[2024-12-14] MEDS ORDERED: TORS10TA3 PO (13:02)
[2024-12-14] MEDS ORDERED: LEVO75TAB PO (13:02)
[2024-12-14] MEDS ORDERED: IPRA2IN INH (13:02)
[2024-12-14] MEDS ORDERED: MOME13HF7 INH (13:02)
[2024-12-14] MEDS ORDERED: METO25TA PO (13:09)
== END 2024-12-14 15:16 | disposition home health service (06) | DRG 291 ==
LOC: EDBD 09:04 → M ED 09:04 → M ED INP 13:55 → M PCU 15:29
PROVIDERS: ADMIT Internal Medicine Nephrology; ATTEND Internal Medicine Nephrology
PROC: B246ZZZ Ultrasonography of Right and Left Heart (ICD-10-PCS; principal; 2024-12-13)
DX: I13.0 Hypertensive heart and chronic kidney disease with heart failure and stage 1 through stage 4 chronic kidney disease, or unspecified chronic kidney disease (principal); J96.01 Acute respiratory failure with hypoxia; E43 Unspecified severe protein-calorie malnutrition; I50.21 Acute systolic (congestive) heart failure; J96.02 Acute respiratory failure with hypercapnia; Z68.1 Body mass index [BMI] 19.9 or less, adult; K86.2 Cyst of pancreas; J44.9 Chronic obstructive pulmonary disease, unspecified; I25.10 Atherosclerotic heart disease of native coronary artery without angina pectoris; I25.2 Old myocardial infarction; I08.3 Combined rheumatic disorders of mitral, aortic and tricuspid valves; I48.0 Paroxysmal atrial fibrillation; E11.43 Type 2 diabetes mellitus with diabetic autonomic (poly)neuropathy; K31.84 Gastroparesis; R91.8 Other nonspecific abnormal finding of lung field; K21.9 Gastro-esophageal reflux disease without esophagitis; F32.A Depression, unspecified; E78.5 Hyperlipidemia, unspecified; D35.00 Benign neoplasm of unspecified adrenal gland; N18.30 Chronic kidney disease, stage 3 unspecified; E11.22 Type 2 diabetes mellitus with diabetic chronic kidney disease; N28.1 Cyst of kidney, acquired; Z87.891 Personal history of nicotine dependence; Z79.4 Long term (current) use of insulin; Z79.899 Other long term (current) drug therapy; Z95.5 Presence of coronary angioplasty implant and graft

== ENCOUNTER → 2024-12-27 | Outpatient (REF) | payer MEDICARE ==
[~2024-12-27] MED LIST changes: +CARV3.12 PO; +IPRA2IN INH; +LEVO75TAB PO; +METO25TA PO; +TORS10TA3 PO
[2024-12-27 15:53] LABS: ALBUMIN 2.9 G/DL (3.2-5.2); BILIRUBIN,TOTAL 0.6 MG/DL (0.3-1.2); CALCIUM LEVEL 9.2 MG/DL (8.3-10.6); CREATININE FOR GFR 1.69 MG/DL (0.55-1.30); GLOMERULAR FILTRATION RATE 31.7 (>39); MAGNESIUM LEVEL 1.8 MG/DL (1.8-2.4); POTASSIUM SERUM 4.3 MMOL/L (3.5-5.1); TOTAL PROTEIN 5.9 G/DL (5.7-8.2)
== END ==
LOC: M LABDRWAD 12:56
PROVIDERS: ATTEND Registered Nurse
DX: I50.23 Acute on chronic systolic (congestive) heart failure (principal); J44.9 Chronic obstructive pulmonary disease, unspecified; D62 Acute posthemorrhagic anemia

== ENCOUNTER → 2024-12-27 | Outpatient (REF) | payer MEDICARE ==
[2024-12-27 15:18] LABS: BASO % 0.2 % (0.0-1.0); EOS # 0.1 10^3/uL (0.0-0.5); EOS % 0.4 % (0.0-3.0); HEMATOCRIT 35.6 % (36.0-47.0); HEMOGLOBIN 11.7 g/dl (12.0-15.5); LYMPH # 0.6 10^3/uL (1.5-5.0); LYMPH % 5.6 % (24.0-44.0); MEAN CORPUSCULAR HEMOGLOBIN 31.7 pg (27.0-33.0); MEAN CORPUSCULAR HGB CONC 32.9 g/dl (32.0-36.5); MEAN CORPUSCULAR VOLUME 96.5 fl (80.0-96.0); MONO # 0.4 10^3/uL (0.0-0.8); MONO % 3.2 % (2.0-8.0); NEUTROPHILS # 10.2 10^3/uL (1.5-8.5); NEUTROPHILS % 89.8 % (36.0-66.0); PLATELET COUNT, AUTOMATED 147 10^3/uL (150-450); RED BLOOD COUNT 3.69 10^6/uL (4.00-5.40); WHITE BLOOD COUNT 11.4 10^3/uL (4.0-10.0)
== END ==
LOC: M LABDRWAD 12:57
PROVIDERS: ATTEND Internal Medicine
DX: J44.9 Chronic obstructive pulmonary disease, unspecified (principal); I50.42 Chronic combined systolic (congestive) and diastolic (congestive) heart failure; D62 Acute posthemorrhagic anemia

== ENCOUNTER → 2025-01-19 | Outpatient (CLI) | payer MEDICARE ==
[2025-01-19 18:37] LABS: ALBUMIN 3.1 G/DL (3.2-5.2); CALCIUM LEVEL 8.7 MG/DL (8.3-10.6); CREATININE FOR GFR 1.75 MG/DL (0.55-1.30); GLOMERULAR FILTRATION RATE 30.4 (>39); PHOSPHORUS LEVEL 4.3 MG/DL (2.4-5.1); POTASSIUM SERUM 4.5 MMOL/L (3.5-5.1)
== END ==
LOC: M WUC 12:38
PROVIDERS: ATTEND Registered Nurse
DX: I50.23 Acute on chronic systolic (congestive) heart failure (principal)

== ENCOUNTER → 2025-02-14 | Outpatient (REF) | payer OTHER, MEDICAID | LOC: M LAB REF 12:22 | PROVIDERS: ATTEND Internal Medicine | DX: I48.0 Paroxysmal atrial fibrillation (principal) ==

== ENCOUNTER 2025-02-20 10:55 | Emergency (ER) | payer OTHER, MEDICAID ==
[~2025-02-20] VITALS: Ht 162.6 cm; Wt 50.0 kg
[2025-02-20 12:48] LABS: BASO % 0.3 % (0.0-1.0); EOS % 0.4 % (0.0-3.0); HEMATOCRIT 32.9 % (36.0-47.0); LYMPH # 0.7 10^3/uL (1.5-5.0); LYMPH % 6.5 % (24.0-44.0); MEAN CORPUSCULAR HEMOGLOBIN 33.4 pg (27.0-33.0); MEAN CORPUSCULAR HGB CONC 33.4 g/dl (32.0-36.5); MONO # 0.2 10^3/uL (0.0-0.8); MONO % 1.8 % (2.0-8.0); NEUTROPHILS # 10.2 10^3/uL (1.5-8.5); NEUTROPHILS % 90.4 % (36.0-66.0); PLATELET COUNT, AUTOMATED 164 10^3/uL (150-450); RED BLOOD COUNT 3.29 10^6/uL (4.00-5.40); WHITE BLOOD COUNT 11.3 10^3/uL (4.0-10.0)
[2025-02-20 14:26] LABS: ALBUMIN 3.4 G/DL (3.2-5.2); BILIRUBIN,DIRECT 0.2 MG/DL (<0.4); BILIRUBIN,TOTAL 0.6 MG/DL (0.3-1.2); CALCIUM LEVEL 9.2 MG/DL (8.3-10.6); CK-MB VALUE MASS 1.2 NG/ML (<3.6); CREATININE FOR GFR 1.69 MG/DL (0.55-1.30); GLOMERULAR FILTRATION RATE 31.7 (>39); MB/CK RELATIVE INDEX 4.28 (< OR =4); TOTAL PROTEIN 6.2 G/DL (5.7-8.2)
[2025-02-20 14:50] VITALS: BP 110/56; TEMP 97.6; O2SAT 94
== END 2025-02-20 15:02 | disposition home or self-care (01) ==
LOC: EDBD 10:55 → M ED 10:55
DX: R06.02 Shortness of breath (principal); I45.2 Bifascicular block; I25.119 Atherosclerotic heart disease of native coronary artery with unspecified angina pectoris; I50.22 Chronic systolic (congestive) heart failure; E11.9 Type 2 diabetes mellitus without complications; I11.0 Hypertensive heart disease with heart failure; J44.9 Chronic obstructive pulmonary disease, unspecified; N18.30 Chronic kidney disease, stage 3 unspecified; Z87.891 Personal history of nicotine dependence; Z79.4 Long term (current) use of insulin; Z79.52 Long term (current) use of systemic steroids; Z79.810 Long term (current) use of selective estrogen receptor modulators (SERMs); Z79.899 Other long term (current) drug therapy

== ENCOUNTER → 2025-02-24 | Outpatient (CLI) | payer OTHER, MEDICAID ==
[2025-02-24 14:31] LABS: ALBUMIN 3.7 G/DL (3.2-5.2); CALCIUM LEVEL 9.5 MG/DL (8.3-10.6); CREATININE FOR GFR 1.35 MG/DL (0.55-1.30); GLOMERULAR FILTRATION RATE 41.8 (>39); PHOSPHORUS LEVEL 3.4 MG/DL (2.4-5.1); POTASSIUM SERUM 4.8 MMOL/L (3.5-5.1)
== END ==
LOC: M WUC 10:47
PROVIDERS: ATTEND Registered Nurse
DX: I50.23 Acute on chronic systolic (congestive) heart failure (principal)

== ENCOUNTER 2025-02-27 22:16 | Inpatient (IN) | payer OTHER, MEDICAID ==
[~2025-02-27] VITALS: Ht 162.6 cm; Wt 51.0 kg
[2025-02-27 22:43] LABS: BASO % 0.3 % (0.0-1.0); EOS % 0.1 % (0.0-3.0); HEMATOCRIT 39.5 % (36.0-47.0); HEMOGLOBIN 12.9 g/dl (12.0-15.5); LYMPH # 3.9 10^3/uL (1.5-5.0); LYMPH % 24.8 % (24.0-44.0); MEAN CORPUSCULAR HEMOGLOBIN 33.4 pg (27.0-33.0); MEAN CORPUSCULAR HGB CONC 32.7 g/dl (32.0-36.5); MEAN CORPUSCULAR VOLUME 102.3 fl (80.0-96.0); MONO # 0.8 10^3/uL (0.0-0.8); MONO % 4.7 % (2.0-8.0); NEUTROPHILS # 10.9 10^3/uL (1.5-8.5); NEUTROPHILS % 68.8 % (36.0-66.0); PLATELET COUNT, AUTOMATED 277 10^3/uL (150-450); RED BLOOD COUNT 3.86 10^6/uL (4.00-5.40); WHITE BLOOD COUNT 15.9 10^3/uL (4.0-10.0)
[2025-02-27] MEDS: IPRATROPIUM 0.5MG/ALBUTEROL 2.5MG INH SOL UD 3ML NEB PRN (22:52)
[2025-02-27 23:08] LABS: CK-MB VALUE MASS 3.2 NG/ML (<3.6)
[2025-02-27 23:10] LABS: MB/CK RELATIVE INDEX 6.66 (< OR =4)
[2025-02-27 23:12] LABS: ALBUMIN 3.6 G/DL (3.2-5.2); BILIRUBIN,DIRECT 0.2 MG/DL (<0.4); BILIRUBIN,TOTAL 0.5 MG/DL (0.3-1.2); CALCIUM LEVEL 9.2 MG/DL (8.3-10.6); CREATININE FOR GFR 1.5 MG/DL (0.55-1.30); GLOMERULAR FILTRATION RATE 36.8 (>39); POTASSIUM SERUM 5.6 MMOL/L (3.5-5.1); TOTAL PROTEIN 6.8 G/DL (5.7-8.2)
[2025-02-27 23:14] LABS: VENOUS BASE EXCESS -8.4 (-2.0-2.0); VENOUS HCO3 22.2 MMOL/L (23.0-27.0); VENOUS O2 SATURATION 86.7 % (60.0-80.0); VENOUS PARTIAL PRESSURE CO2 69.1 mmHg (38.0-50.0); VENOUS PARTIAL PRESSURE O2 63.8 mmHg (30.0-50.0); VENOUS PH 7.125 UNITS (7.330-7.430); VENOUS STANDARD HCO3 17.6 MMOL/L; VENOUS TOTAL CO2 24.3 MMOL/L (24.0-28.0)
[2025-02-27] MEDS: PIPERACILLIN/TAZOBACTAM SOD 4.5 GM in DEXTROSE 5% (D5W) ADV/MINI-BAG 50 ML IV ONE (23:34)
[2025-02-27] MEDS: [UNRECOGNIZED DRUG - OTHER] IV ONE (23:34)
[2025-02-27] MEDS: NS 0.9% IV ONE (23:34)
[2025-02-27] MEDS ORDERED: ISOVUE-370 76% 100ML VIAL As Ordered ONE (23:39)
[2025-02-28] VITALS (9 sets, daily range): BP systolic 119–168; BP diastolic 55–72; TEMP 96.1–98.3; O2SAT 93–99
[2025-02-28 00:16] LABS: CK-MB VALUE MASS 3.2 NG/ML (<3.6)
[2025-02-28 00:47] LABS: MB/CK RELATIVE INDEX 6.8 (< OR =4)
[2025-02-28 00:48] LABS: ACETONE/KETONE 0.15 MMOL/L (0.02-0.27)
[2025-02-28 02:22] LABS: VENOUS BASE EXCESS -6.8 (-2.0-2.0); VENOUS HCO3 20.4 MMOL/L (23.0-27.0); VENOUS O2 SATURATION 81.1 % (60.0-80.0); VENOUS PARTIAL PRESSURE CO2 48.4 mmHg (38.0-50.0); VENOUS PARTIAL PRESSURE O2 48.9 mmHg (30.0-50.0); VENOUS PH 7.243 UNITS (7.330-7.430); VENOUS STANDARD HCO3 18.6 MMOL/L; VENOUS TOTAL CO2 21.9 MMOL/L (24.0-28.0)
[2025-02-28] MEDS ORDERED: LORazepam 2 MG/ML 1ML VIAL IV PRN (02:55)
[2025-02-28] MEDS ORDERED: MAALOX 30 ML SUSP *UDC PO PRN (02:55)
[2025-02-28] MEDS ORDERED: ACETAMINOPHEN 325 MG TAB PO PRN (02:55)
[2025-02-28] MEDS ORDERED: MOM 30ML SUSPENSION UDC PO PRN (02:55)
[2025-02-28] MEDS: methylPREDNISolone 125MG 2ML VIAL IV STA (03:16)
[2025-02-28] MEDS: INSULIN LISPRO (NovoLOG) PER UNIT SC STA (03:17)
[2025-02-28] MEDS ORDERED: FLUC150T9 PO (04:17)
[2025-02-28] MEDS ORDERED: BREO1INH3 INH (04:17)
[2025-02-28] MEDS ORDERED: NITR0.4S14 SL (04:17)
[2025-02-28] MEDS ORDERED: ATRO0.063 INH (04:17)
[2025-02-28] MEDS ORDERED: FARX1TAB3 PO (04:17)
[2025-02-28] MEDS ORDERED: TORS10TA3 PO (04:17)
[2025-02-28] MEDS ORDERED: FAMO40TA3 PO (04:17)
[2025-02-28] MEDS ORDERED: ENTR1TAB4 PO (04:17)
[2025-02-28] MEDS ORDERED: TORS5TAB2 PO (04:17)
[2025-02-28] MEDS ORDERED: PRED5TA PO (04:17)
[2025-02-28] MEDS ORDERED: HOME MED LIST COMPLETE! XX SCH (04:20)
[2025-02-28] MEDS ORDERED: INSULIN REGULAR IN 0.9 % NACL 100 UNIT in IV 1 EA IV SCH (05:00)
[2025-02-28] MEDS: cefTRIAXone SOD 1 GM in DEXTROSE 5% (D5W) ADV/MINI-BAG 50 ML IV SCH (05:20)
[2025-02-28] MEDS: INSULIN LISPRO (NovoLOG) PER UNIT SC ONE (05:45)
[2025-02-28] MEDS ORDERED: GLUCAGON INJ 1MG VIAL SC PRN ×2 (05:55→08:45)
[2025-02-28] MEDS ORDERED: DEXTROSE 50% 50ML SYRINGE IV PRN ×2 (05:55→08:45)
[2025-02-28] MEDS ORDERED: GLUCOSE 4 GM CHEW PO PRN ×2 (05:55→08:45)
[2025-02-28] MEDS: DULoxetine 30MG CAPSULE (CYMBALTA) PO SCH (06:06)
[2025-02-28] MEDS: AZITHROMYCIN INJ 500 MG, VIAL MATE ADAPTER 1 EACH in NS 250 ML IV SCH (06:24)
[2025-02-28] MEDS: SYMBICORT 160/4.5MCG INHALER 6GM INH SCH (07:56)
[2025-02-28] MEDS: HEPARIN SOD (PORCINE) 5000UNITS/ML 1ML VIAL/SYRINGE SC SCH (08:00)
[2025-02-28] MEDS: PANTOPRAZOLE 40MG VIAL IV SCH (08:00)
[2025-02-28 08:02] LABS: CALCIUM LEVEL 8.8 MG/DL (8.3-10.6); CREATININE FOR GFR 1.33 MG/DL (0.55-1.30); GLOMERULAR FILTRATION RATE 42.5 (>39)
[2025-02-28] MEDS: CARVedilol 6.25 MG TAB PO SCH (08:02)
[2025-02-28] MEDS: DAPAGLIFLOZIN PROPANEDIOL 10MG TABLET (FARXIGA) PO SCH (08:03)
[2025-02-28] MEDS: DOCUSATE SODIUM 100MG CAPSULE PO SCH (08:03)
[2025-02-28] MEDS: TORSEMIDE 10 MG TABLET PO SCH (08:08)
[2025-02-28] MEDS: LanTUS (INSULIN GLARGINE INJ) 1 UNITS/0.01 ML SC SCH (08:10)
[2025-02-28] MEDS: ENTRESTO 97-103MG TABLET (SACUBITRIL/VALSARTAN) PO SCH (08:16)
[2025-02-28 09:42] LABS: PROCALCITONIN 0.09 ng/ml
[2025-02-28] MEDS: methylPREDNISolone 125MG 2ML VIAL IV SCH (11:45)
[2025-02-28] MEDS ORDERED: INSULIN LISPRO (NovoLOG) PER UNIT SC SCH (12:00)
[2025-02-28 12:39] LABS: VENOUS BASE EXCESS -2.9 (-2.0-2.0); VENOUS HCO3 23.9 MMOL/L (23.0-27.0); VENOUS O2 SATURATION 77.9 % (60.0-80.0); VENOUS PARTIAL PRESSURE CO2 49.4 mmHg (38.0-50.0); VENOUS PARTIAL PRESSURE O2 44.8 mmHg (30.0-50.0); VENOUS PH 7.302 UNITS (7.330-7.430); VENOUS STANDARD HCO3 21.7 MMOL/L; VENOUS TOTAL CO2 25.4 MMOL/L (24.0-28.0)
[2025-02-28] MEDS: INSULIN LISPRO (NovoLOG) PER UNIT SC SCH ×2 (12:42→20:10)
[2025-02-28 13:14] LABS: CALCIUM LEVEL 9.2 MG/DL (8.3-10.6); CREATININE FOR GFR 1.35 MG/DL (0.55-1.30); GLOMERULAR FILTRATION RATE 41.8 (>39); PHOSPHORUS LEVEL 3.5 MG/DL (2.4-5.1); POTASSIUM SERUM 4.6 MMOL/L (3.5-5.1)
[2025-02-28 16:34] LABS: VENOUS BASE EXCESS -3.6 (-2.0-2.0); VENOUS HCO3 20.5 MMOL/L (23.0-27.0); VENOUS PARTIAL PRESSURE CO2 33.7 mmHg (38.0-50.0); VENOUS PH 7.401 UNITS (7.330-7.430); VENOUS STANDARD HCO3 21.5 MMOL/L; VENOUS TOTAL CO2 21.5 MMOL/L (24.0-28.0)
[2025-02-28 17:12] LABS: CREATININE FOR GFR 1.51 MG/DL (0.55-1.30); GLOMERULAR FILTRATION RATE 36.5 (>39); PHOSPHORUS LEVEL 3.4 MG/DL (2.4-5.1); POTASSIUM SERUM 4.5 MMOL/L (3.5-5.1)
[2025-02-28] MEDS: LEVALBUTEROL 1.25 MG 0.5ML CONCENTRATE NEB NEB PRN (19:14)
[2025-02-28] MEDS: ATORVASTATIN 20 MG TAB PO SCH (20:12)
[2025-02-28 20:31] LABS: VENOUS BASE EXCESS -1.8 (-2.0-2.0); VENOUS HCO3 23.5 MMOL/L (23.0-27.0); VENOUS PARTIAL PRESSURE CO2 42.4 mmHg (38.0-50.0); VENOUS PARTIAL PRESSURE O2 45.4 mmHg (30.0-50.0); VENOUS PH 7.362 UNITS (7.330-7.430); VENOUS STANDARD HCO3 22.6 MMOL/L; VENOUS TOTAL CO2 24.8 MMOL/L (24.0-28.0)
[2025-02-28 20:59] LABS: CALCIUM LEVEL 9.1 MG/DL (8.3-10.6); CREATININE FOR GFR 2.01 MG/DL (0.55-1.30); GLOMERULAR FILTRATION RATE 25.9 (>39); PHOSPHORUS LEVEL 3.3 MG/DL (2.4-5.1); POTASSIUM SERUM 4.8 MMOL/L (3.5-5.1)
[2025-03-01 04:00] VITALS: BP 99/52; TEMP 97.1; O2SAT 94
[2025-03-01] MEDS: LevoFLOXacin 750 MG TABLET PO SCH (05:32)
[2025-03-01 05:33] LABS: HEMATOCRIT 32.2 % (36.0-47.0); MEAN CORPUSCULAR HEMOGLOBIN 32.5 pg (27.0-33.0); MEAN CORPUSCULAR HGB CONC 32.3 g/dl (32.0-36.5); MEAN CORPUSCULAR VOLUME 100.6 fl (80.0-96.0); PLATELET COUNT, AUTOMATED 168 10^3/uL (150-450); WHITE BLOOD COUNT 11.9 10^3/uL (4.0-10.0)
[2025-03-01 05:39] LABS: HEMOGLOBIN 10.4 g/dl (12.0-15.5)
[2025-03-01 05:56] LABS: PROCALCITONIN 0.12 ng/ml
[2025-03-01 05:58] LABS: ALBUMIN 2.8 G/DL (3.2-5.2); BILIRUBIN,TOTAL 0.2 MG/DL (0.3-1.2); CALCIUM LEVEL 9.3 MG/DL (8.3-10.6); CREATININE FOR GFR 1.82 MG/DL (0.55-1.30); GLOMERULAR FILTRATION RATE 29.2 (>39); MAGNESIUM LEVEL 1.6 MG/DL (1.8-2.4); POTASSIUM SERUM 4.8 MMOL/L (3.5-5.1); TOTAL PROTEIN 5.4 G/DL (5.7-8.2)
[2025-03-01 08:15] VITALS: BP 156/69; TEMP 98.1; O2SAT 94
[2025-03-01] MEDS: predniSONE 20 MG TAB PO SCH (08:32)
[2025-03-01 08:33] VITALS: BP 156/69
[2025-03-01 12:00] VITALS: BP 150/70; TEMP 98.2; O2SAT 96
[2025-03-01] MEDS ORDERED: LEVO75TAB PO (12:01)
[2025-03-01] MEDS ORDERED: PRED20TA PO (12:01)
== END 2025-03-01 12:49 | disposition home or self-care (01) | DRG 189 ==
LOC: M ED 22:16 → EDBD 22:16 → M ED INP 02-28 02:51 → M ICU 02-28 04:23
PROVIDERS: ADMIT Student in an Organized Health Care Education/Training Program; ATTEND Student in an Organized Health Care Education/Training Program
DX: J96.01 Acute respiratory failure with hypoxia (principal); I50.22 Chronic systolic (congestive) heart failure; I13.0 Hypertensive heart and chronic kidney disease with heart failure and stage 1 through stage 4 chronic kidney disease, or unspecified chronic kidney disease; J44.1 Chronic obstructive pulmonary disease with (acute) exacerbation; E87.0 Hyperosmolality and hypernatremia; N17.9 Acute kidney failure, unspecified; E87.20 Acidosis, unspecified; J96.02 Acute respiratory failure with hypercapnia; N18.30 Chronic kidney disease, stage 3 unspecified; E11.22 Type 2 diabetes mellitus with diabetic chronic kidney disease; E78.5 Hyperlipidemia, unspecified; K21.9 Gastro-esophageal reflux disease without esophagitis; E11.65 Type 2 diabetes mellitus with hyperglycemia; J43.9 Emphysema, unspecified; I35.1 Nonrheumatic aortic (valve) insufficiency; I45.10 Unspecified right bundle-branch block; I48.0 Paroxysmal atrial fibrillation; Z66 Do not resuscitate; Z79.4 Long term (current) use of insulin; Z79.52 Long term (current) use of systemic steroids; Z79.899 Other long term (current) drug therapy

== ENCOUNTER → 2025-03-13 | Outpatient (CLI) | payer OTHER, MEDICAID, MEDICARE ==
[~2025-03-13] MED LIST changes: +ATRO0.063 INH; +ENTR1TAB4 PO; +FARX1TAB3 PO; +NITR0.4S14 SL; +PRED5TA PO
[2025-03-13 14:21] LABS: ALBUMIN 3.6 G/DL (3.2-5.2); CALCIUM LEVEL 9.1 MG/DL (8.3-10.6); CREATININE FOR GFR 1.51 MG/DL (0.55-1.30); GLOMERULAR FILTRATION RATE 36.5 (>39); PHOSPHORUS LEVEL 2.9 MG/DL (2.4-5.1); POTASSIUM SERUM 4.2 MMOL/L (3.5-5.1)
== END ==
LOC: M WUC 11:48
PROVIDERS: ATTEND Registered Nurse
DX: I50.23 Acute on chronic systolic (congestive) heart failure (principal)

== ENCOUNTER → 2025-07-19 | Outpatient (CLI) | payer OTHER, MEDICAID, MEDICARE ==
[2025-07-19 19:41] LABS: CALCIUM LEVEL 9.9 MG/DL (8.3-10.6); CARBON DIOXIDE LEVEL 31.0 MMOL/L (20-31); CHLORIDE LEVEL 91.0 MMOL/L (98-107); CREATININE FOR GFR 2.03 MG/DL (0.55-1.30); GLOMERULAR FILTRATION RATE 25.6 (>39); PHOSPHORUS LEVEL 4.9 MG/DL (2.4-5.1); POTASSIUM SERUM 4.6 MMOL/L (3.5-5.1); SODIUM LEVEL 132.0 MMOL/L (136-145)
== END ==
LOC: M WUC 13:34
PROVIDERS: ATTEND Registered Nurse
DX: I50.23 Acute on chronic systolic (congestive) heart failure (principal)

== ENCOUNTER 2025-08-30 03:01 | Inpatient (IN) | payer OTHER, MEDICAID ==
[~2025-08-30] VITALS: Ht 152.4 cm; Wt 42.7 kg
[2025-08-30] MEDS: ALBUTEROL SULFATE 2.5 MG/0.5 ML INH CONCENTRATE NEB SOLN NEB SCH (03:31)
[2025-08-30 03:46] LABS: BASO # 0.1 10^3/uL (0.0-0.2); BASO % 0.5 % (0.0-1.0); EOS # 0.3 10^3/uL (0.0-0.5); EOS % 1.3 % (0.0-3.0); LYMPH # 5.6 10^3/uL (1.5-5.0); LYMPH % 28.0 % (24.0-44.0); MONO # 1.6 10^3/uL (0.0-0.8); MONO % 8.0 % (2.0-8.0); NEUTROPHILS # 12.2 10^3/uL (1.5-8.5); NEUTROPHILS % 61.6 % (36.0-66.0); PLATELET COUNT, AUTOMATED 267 10^3/uL (150-450)
[2025-08-30 04:02] LABS: ALT/SGPT 44.0 U/L (7.0-40); AST/SGOT 65.0 U/L (<34); CALCIUM LEVEL 8.8 MG/DL (8.3-10.6); CARBON DIOXIDE LEVEL 33.0 MMOL/L (20-31); CHLORIDE LEVEL 100.0 MMOL/L (98-107); CREATININE FOR GFR 1.38 MG/DL (0.55-1.30); GLOMERULAR FILTRATION RATE 40.7 (>39); POTASSIUM SERUM 5.7 MMOL/L (3.5-5.1); SODIUM LEVEL 140.0 MMOL/L (136-145)
[2025-08-30] MEDS: MAG SULF 1GM/100ML (MAG RUN) 1 GM in IV 1 EA IV ONE (04:15)
[2025-08-30 04:17] LABS: ABG BASE EXCESS 4.3 (-2.0-2.0); ABG HCO3 33.1 MMOL/L (22.0-26.0); ABG O2 SATURATION 98.8 % (95.0-99.0); ABG PARTIAL PRESSURE O2 197.6 mmHg (75.0-100.0); ABG STANDARD HCO3 28.3 MMOL/L. (22.0-26.0); ABG TOTAL CO2 35.4 MMOL/L (23.0-31.0); ABG pH (ARTERIAL) 7.266 UNITS (7.350-7.450)
[2025-08-30 04:18] LABS: ABG PARTIAL PRESSURE CO2 74.5 mmHg (35.0-45.0)
[2025-08-30] MEDS: NS 500 ML IV ONE (04:21)
[2025-08-30] MEDS: FUROSEMIDE 40 MG/4 ML VIAL IV ONE ×2 (05:50→13:51)
[2025-08-30 08:47] LABS: ABG BASE EXCESS 6.6 (-2.0-2.0); ABG HCO3 33.4 MMOL/L (22.0-26.0); ABG O2 SATURATION 99.1 % (95.0-99.0); ABG PARTIAL PRESSURE CO2 59.5 mmHg (35.0-45.0); ABG PARTIAL PRESSURE O2 176.4 mmHg (75.0-100.0); ABG STANDARD HCO3 30.5 MMOL/L. (22.0-26.0); ABG TOTAL CO2 35.2 MMOL/L (23.0-31.0); ABG pH (ARTERIAL) 7.367 UNITS (7.350-7.450)
[2025-08-30] MEDS ORDERED: ENTR1TAB7 PO (09:32)
[2025-08-30] MEDS ORDERED: CARV3.12 PO (09:32)
[2025-08-30] MEDS ORDERED: ENSI3AMP IH (09:32)
[2025-08-30] MEDS ORDERED: CALC600T60 PO (09:32)
[2025-08-30] MEDS ORDERED: HOME MED LIST COMPLETE! XX SCH (09:35)
[2025-08-30] MEDS: ADVAIR HFA 230/21 MCG INHALER INH SCH (12:08)
[2025-08-30] MEDS: IPRATROPIUM 0.5 MG/ALBUTEROL 2.5 MG INH SOL UD 3 ML NEB SCH (12:08)
[2025-08-30] MEDS: DAPAGLIFLOZIN PROPANEDIOL 10 MG TABLET PO SCH (12:28)
[2025-08-30] MEDS: FAMOTIDINE 20 MG TAB PO SCH (12:28)
[2025-08-30] MEDS: ASPIRIN 81 MG ENTERIC TABLET PO SCH (12:30)
[2025-08-30] MEDS ORDERED: DEXTROSE 50% 50 ML SYRINGE IV PRN (13:10)
[2025-08-30] MEDS ORDERED: GLUCAGON INJ 1 MG VIAL SC PRN (13:10)
[2025-08-30] MEDS ORDERED: GLUCOSE 4 GM CHEW PO PRN (13:10)
[2025-08-30] MEDS: LanTUS (INSULIN GLARGINE INJ) 1 UNITS/0.01 ML SC SCH ×2 (13:10→21:33)
[2025-08-30] MEDS: ENTRESTO 49-51 MG TABLET (SACUBITRIL/VALSARTAN) PO SCH (13:45)
[2025-08-30 15:33] VITALS: BP 111/57; TEMP 97.3; O2SAT 91
[2025-08-30] MEDS: DOXYCYCLINE HYCLATE 100 MG TABLET PO SCH (16:01)
[2025-08-30 16:48] LABS: CALCIUM LEVEL 8.9 MG/DL (8.3-10.6); CARBON DIOXIDE LEVEL 32.0 MMOL/L (20-31); CHLORIDE LEVEL 96.0 MMOL/L (98-107); CREATININE FOR GFR 1.39 MG/DL (0.55-1.30); GLOMERULAR FILTRATION RATE 40.3 (>39); POTASSIUM SERUM 4.7 MMOL/L (3.5-5.1); SODIUM LEVEL 139.0 MMOL/L (136-145)
[2025-08-30] MEDS: INSULIN LISPRO (NovoLOG) PER UNIT SC SCH (17:49)
[2025-08-30 20:30] VITALS: BP 127/48; TEMP 97.7; O2SAT 92
[2025-08-30] MEDS: DOCUSATE SODIUM 100 MG CAPSULE PO SCH (21:00)
[2025-08-31 04:25] VITALS: BP 116/47; TEMP 97.2; O2SAT 91
[2025-08-31 06:07] LABS: VENOUS BASE EXCESS 9.0 (-2.0-2.0); VENOUS HCO3 33.9 MMOL/L (23.0-27.0); VENOUS O2 SATURATION 98.4 % (60.0-80.0); VENOUS PARTIAL PRESSURE CO2 48.6 mmHg (38.0-50.0); VENOUS PARTIAL PRESSURE O2 143.6 mmHg (30.0-50.0); VENOUS PH 7.461 UNITS (7.330-7.430); VENOUS STANDARD HCO3 32.8 MMOL/L; VENOUS TOTAL CO2 35.4 MMOL/L (24.0-28.0)
[2025-08-31 06:34] LABS: BASO # 0.0 10^3/uL (0.0-0.2); BASO % 0.1 % (0.0-1.0); EOS # 0.0 10^3/uL (0.0-0.5); EOS % 0.0 % (0.0-3.0); LYMPH # 1.1 10^3/uL (1.5-5.0); LYMPH % 13.5 % (24.0-44.0); MONO # 0.6 10^3/uL (0.0-0.8); MONO % 7.3 % (2.0-8.0); NEUTROPHILS # 6.2 10^3/uL (1.5-8.5); NEUTROPHILS % 78.5 % (36.0-66.0); PLATELET COUNT, AUTOMATED 142 10^3/uL (150-450)
[2025-08-31 06:38] LABS: CALCIUM LEVEL 8.6 MG/DL (8.3-10.6); CARBON DIOXIDE LEVEL 36.0 MMOL/L (20-31); CHLORIDE LEVEL 96.0 MMOL/L (98-107); CREATININE FOR GFR 1.68 MG/DL (0.55-1.30); GLOMERULAR FILTRATION RATE 32.1 (>39); POTASSIUM SERUM 3.8 MMOL/L (3.5-5.1); SODIUM LEVEL 138.0 MMOL/L (136-145)
[2025-08-31 07:39] LABS: ESTIMATED AVERAGE GLUCOSE 246.0 MG/DL (60-110)
[2025-08-31] MEDS: LanTUS (INSULIN GLARGINE INJ) 1 UNITS/0.01 ML SC SCH (09:03)
[2025-08-31 09:08] VITALS: BP 136/94
[2025-08-31] MEDS ORDERED: LANTINJ4 SC (10:28)
[2025-08-31] MEDS ORDERED: PRED20TA PO (10:28)
[2025-08-31] MEDS ORDERED: TORS20TA2 PO (10:28)
[2025-08-31 11:10] LABS: PLATELET COUNT, AUTOMATED 170 10^3/uL (150-450)
[2025-08-31 11:35] LABS: CALCIUM LEVEL 9.5 MG/DL (8.3-10.6); CARBON DIOXIDE LEVEL 35.0 MMOL/L (20-31); CHLORIDE LEVEL 95.0 MMOL/L (98-107); CREATININE FOR GFR 1.66 MG/DL (0.55-1.30); GLOMERULAR FILTRATION RATE 32.6 (>39); POTASSIUM SERUM 3.7 MMOL/L (3.5-5.1); SODIUM LEVEL 141.0 MMOL/L (136-145)
== END 2025-08-31 11:32 | disposition home health service (06) | DRG 291 ==
LOC: M ED 03:01 → M ED INP 10:15 → M MSPAV 15:36
PROVIDERS: ADMIT Internal Medicine Nephrology; ATTEND Internal Medicine Nephrology
DX: I13.0 Hypertensive heart and chronic kidney disease with heart failure and stage 1 through stage 4 chronic kidney disease, or unspecified chronic kidney disease (principal); I50.43 Acute on chronic combined systolic (congestive) and diastolic (congestive) heart failure; J96.01 Acute respiratory failure with hypoxia; J96.02 Acute respiratory failure with hypercapnia; R64 Cachexia; J44.1 Chronic obstructive pulmonary disease with (acute) exacerbation; J98.11 Atelectasis; E46 Unspecified protein-calorie malnutrition; N18.30 Chronic kidney disease, stage 3 unspecified; E11.22 Type 2 diabetes mellitus with diabetic chronic kidney disease; I35.1 Nonrheumatic aortic (valve) insufficiency; I25.10 Atherosclerotic heart disease of native coronary artery without angina pectoris; E78.5 Hyperlipidemia, unspecified; I25.2 Old myocardial infarction; Z66 Do not resuscitate; K21.9 Gastro-esophageal reflux disease without esophagitis; E11.65 Type 2 diabetes mellitus with hyperglycemia; J43.9 Emphysema, unspecified; I48.0 Paroxysmal atrial fibrillation; F32.A Depression, unspecified; Z79.82 Long term (current) use of aspirin; Z79.4 Long term (current) use of insulin; Z79.899 Other long term (current) drug therapy; Z87.891 Personal history of nicotine dependence